=== PATIENT | male | born 1940 | race Caucasian/White ===

== ENCOUNTER 2020-08-24 11:47 | Outpatient (REF) | payer MEDICARE, SELFPAY | END 2020-08-24 11:48 | disposition home or self-care (01) | LOC: HO.LAB 11:47 | PROVIDERS: PCP Internal Medicine Medical Oncology; Visit Provider Internal Medicine | DX: Z20.828 Contact with and (suspected) exposure to other viral communicable diseases (principal) | CPT/HCPCS: 36415; C9803; U0003 ==

== ENCOUNTER 2021-02-14 15:48 | Outpatient (REF) | payer MEDICARE, OTHER, SELFPAY ==
--- NOTE | ~2021-02-14 | XR_ITS ---
EXAMINATION: XR HAND, BILATERAL CLINICAL INFORMATION: Right hand pain COMPARISON: None TECHNIQUE: 3 views of each hand FINDINGS: Right hand: Mild degenerative changes of the interphalangeal joints. No fracture. No periarticular osteopenia, erosions, or suspicious soft tissue calcifications. 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 Mild degenerative changes of the interphalangeal joints. No acute fracture. No periarticular osteopenia, erosions, or suspicious soft tissue calcifications. XR/XR hand RT 2V IMPRESSION: Mild degenerative changes of both hands as described without evidence of an inflammatory arthropathy or acute osseous abnormality.
--- NOTE | ~2021-02-14 | XR_ITS ---
EXAMINATION: XR HAND, BILATERAL CLINICAL INFORMATION: Right hand pain COMPARISON: None TECHNIQUE: 3 views of each hand FINDINGS: Right hand: Mild degenerative changes of the interphalangeal joints. No fracture. No periarticular osteopenia, erosions, or suspicious soft tissue calcifications. 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 Mild degenerative changes of the interphalangeal joints. No acute fracture. No periarticular osteopenia, erosions, or suspicious soft tissue calcifications. XR/XR hand LT 2V IMPRESSION: Mild degenerative changes of both hands as described without evidence of an inflammatory arthropathy or acute osseous abnormality.
== END 2021-02-14 15:49 | disposition home or self-care (01) ==
LOC: HO.XRAY 15:48
PROVIDERS: PCP Internal Medicine Medical Oncology; Visit Provider Nurse Practitioner Family
DX: M79.641 Pain in right hand (principal); M79.642 Pain in left hand
CPT/HCPCS: 73120; 99202

== ENCOUNTER → 2021-03-03 11:50 | Outpatient (BNVA) | payer MEDICARE, SELFPAY | PROVIDERS: PCP Internal Medicine Medical Oncology; Visit Provider Nurse Practitioner Family | DX: M79.641 Pain in right hand (principal); M79.642 Pain in left hand; Z79.899 Other long term (current) drug therapy | CPT/HCPCS: Q3014 ==

== ENCOUNTER 2021-03-07 10:30 | Outpatient (REF) | payer MEDICARE, SELFPAY ==
[2021-03-07 10:54] LABS: MANUAL DIFF FLAG NO
[2021-03-07 10:56] LABS: Basophils Absolute Auto 0.1 X10*3/uL (0.0-0.2); Basophils Percent Auto 0.8 % (0-2); Eosinophils Absolute Auto 0.1 X10*3/uL (0.0-0.4); Eosinophils Percent Auto 1.3 % (0-4); Hematocrit 42.2 % (42-52); Hemoglobin 14.1 g/dl (14.0-18.0); Imm Gran Abs Auto 0.04 X10*3/uL (0.00-0.03); Imm Gran Pct Auto 0.4 % (0.0-0.4); Lymphocytes Absolute Auto 1.8 X10*3/uL (1.2-4.9); Lymphocytes Percent Auto 18.6 % (20-40); Mean Corpuscular HGB Conc 33.4 g/dl (31.0-36.0); Mean Corpuscular Hemoglobin 29.1 pg (27.0-33.0); Mean Platelet Volume 8.7 fL (9.4-12.4); Monocytes Absolute Auto 0.9 X10*3/uL (0.1-1.2); Monocytes Percent Auto 9.4 % (2-11); Neutrophils Absolute Auto 6.9 X10*3/uL (2.0-8.3); Neutrophils Percent Auto 69.5 % (45-73); Platelet Count 420 X10*3/uL (160-400); Red Blood Count 4.85 X10*6/uL (4.60-5.80); Red Cell Distribution Width 11.8 % (11.0-16.0); White Blood Count 9.9 X10*3/uL (4.8-10.8)
[2021-03-07 11:22] LABS: Alanine Aminotransferase 12 U/L (0-40); Albumin Level 3.7 g/dL (3.5-5.0); Alkaline Phosphatase 77 U/L (39-117); Anion Gap 13 (12-20); Aspartate Amino Transferase 16 U/L (5-37); Bilirubin Total 0.8 mg/dL (0.0-1.0); Blood Urea Nitrogen 11 mg/dL (9-16); Calcium 9.1 mg/dL (8.4-10.2); Carbon Dioxide 26 mmol/L (22-29); Chloride 103 mmol/L (96-108); Cholesterol 132 mg/dL; Estimated Glomerular Filt Rate > 60; Glucose Fasting 103 mg/dL (60-99); HDL Cholesterol 38 mg/dL; LDL Cholesterol Calculated 77 mg/dl; Potassium 4.3 mmol/L (3.3-5.1); Sodium 138 mmol/L (135-145); Total Protein 6.7 g/dL (6.5-8.0); Triglycerides 85 mg/dL
[2021-03-07 11:41] LABS: Prostate Specific Antigen < 0.05 ng/mL (<0.05-4.0)
== END 2021-03-07 10:31 | disposition home or self-care (01) ==
LOC: HO.LAB 10:30
PROVIDERS: PCP Internal Medicine Medical Oncology; Visit Provider Internal Medicine Medical Oncology
DX: E78.00 Pure hypercholesterolemia, unspecified (principal); C61 Malignant neoplasm of prostate; E66.3 Overweight
CPT/HCPCS: 36415; 80053; 80061; 84153; 85025

== ENCOUNTER → 2021-03-22 12:44 | Outpatient (BNVA) | payer OTHER, SELFPAY | PROVIDERS: PCP Internal Medicine Medical Oncology; Visit Provider Orthopaedic Surgery | DX: M65.332 Trigger finger, left middle finger (principal); M65.342 Trigger finger, left ring finger; M65.321 Trigger finger, right index finger; M65.341 Trigger finger, right ring finger | CPT/HCPCS: 20550; 99202; J1100 ==

== ENCOUNTER 2021-05-09 15:30 | Outpatient (REF) | payer MEDICARE, SELFPAY ==
--- NOTE | ~2021-05-09 | XR_ITS ---
EXAMINATION: XR SHOULDER, RIGHT XR SHOULDER, LEFT CLINICAL INFORMATION: Bilateral shoulder pain (right worse than left) COMPARISON: None TECHNIQUE: Right shoulder, 4 views Left shoulder, 4 views FINDINGS: Left shoulder: Bones are diffusely osteopenic. Small osteophytes at mildly degenerated acromioclavicular and glenohumeral joints. No fracture or subluxation. There are foci of calcium deposition (likely calcium hydroxyapatite deposition) inferior to the glenoid, region of long triceps attachment. The acromiohumeral distance is normal. There appears to be minimal calcium deposition in the region of the distal supraspinatus tendon. The visualized left upper lung is normal. Right shoulder: Bones have normal alignment. There are osteophytes of the degenerated acromioclavicular joint. Small osteophytes of the glenohumeral joint. The humeral head is well-positioned over the intact glenoid. The glenohumeral joint space is maintained. There are foci of calcium deposition in the region of long triceps attachment at the inferior glenoid and within the distal supraspinatus tendon. The calcium deposition in the region of the distal supraspinatus tendon measures 1.3 cm in length. Question presence of 0.5 cm nodule in the medial right lung apex. Recommend PA and lateral chest radiographic follow-up within the next 3 months to determine whether there is any persistent nodule at the apex. XR/XR shoulder RT min 2V IMPRESSION: * At the right shoulder, there is moderate osteoarthritis of the acromioclavicular joint and mild osteoarthritis of the glenohumeral joint. There are foci of calcium deposition (likely calcium hydroxyapatite deposition) in the region of glenoid attachment of the long triceps tendon and within the region of the distal supraspinatus tendon. * At the left shoulder, there is mild osteoarthritis of the acromioclavicular and glenohumeral joints. The calcium deposition in the left supraspinatus tendon is significantly less at the left shoulder than at the right shoulder.
[2021-05-09 15:48] LABS: MANUAL DIFF FLAG NO
[2021-05-09 15:53] LABS: Basophils Absolute Auto 0.1 X10*3/uL (0.0-0.2); Basophils Percent Auto 0.7 % (0-2); Eosinophils Absolute Auto 0.1 X10*3/uL (0.0-0.4); Eosinophils Percent Auto 0.5 % (0-4); Hemoglobin 13.3 g/dl (14.0-18.0); Imm Gran Abs Auto 0.05 X10*3/uL (0.00-0.03); Imm Gran Pct Auto 0.4 % (0.0-0.4); Lymphocytes Absolute Auto 1.5 X10*3/uL (1.2-4.9); Lymphocytes Percent Auto 11.8 % (20-40); Mean Corpuscular HGB Conc 33.3 g/dl (31.0-36.0); Mean Corpuscular Hemoglobin 28.3 pg (27.0-33.0); Mean Corpuscular Volume 85.1 fL (80-98); Mean Platelet Volume 8.7 fL (9.4-12.4); Monocytes Absolute Auto 1.2 X10*3/uL (0.1-1.2); Neutrophils Absolute Auto 9.4 X10*3/uL (2.0-8.3); Neutrophils Percent Auto 76.6 % (45-73); Platelet Count 455 X10*3/uL (160-400); Red Cell Distribution Width 12.3 % (11.0-16.0); White Blood Count 12.2 X10*3/uL (4.8-10.8)
[2021-05-09 16:18] LABS: Alanine Aminotransferase 14 U/L (0-40); Alkaline Phosphatase 69 U/L (39-117); Anion Gap 14 (12-20); Aspartate Amino Transferase 16 U/L (5-37); Bilirubin Total 0.7 mg/dL (0.0-1.0); Blood Urea Nitrogen 11 mg/dL (9-16); Calcium 9.1 mg/dL (8.4-10.2); Carbon Dioxide 23 mmol/L (22-29); Chloride 102 mmol/L (96-108); Estimated Glomerular Filt Rate > 60; Glucose Random 99 mg/dL (60-115); Potassium 4.7 mmol/L (3.3-5.1); Sodium 134 mmol/L (135-145); Total Protein 6.9 g/dL (6.5-8.0)
[2021-05-09 16:42] LABS: Free T4 (Free Thyroxine) 1.08 ng/dL (0.71-1.85); Prostate Specific Antigen < 0.05 ng/mL (<0.05-4.0); Thyroid Stimulating Hormone 1.88 uIU/mL (0.32-4.0)
[2021-05-09 16:43] LABS: Erythrocyte Sedimentation Rate 26 MM/HR (0-15)
[2021-05-11 08:47] LABS: Lyme Abs Screen <0.90 index
== END 2021-05-09 15:31 | disposition home or self-care (01) ==
LOC: HO.XRAY 15:30
PROVIDERS: PCP Internal Medicine Medical Oncology; Visit Provider Internal Medicine Medical Oncology
DX: Z12.5 Encounter for screening for malignant neoplasm of prostate (principal); M25.511 Pain in right shoulder; M25.512 Pain in left shoulder; E78.00 Pure hypercholesterolemia, unspecified; E66.3 Overweight; C61 Malignant neoplasm of prostate
CPT/HCPCS: 36415; 73030; 80053; 84153; 84439; 84443; 85025; 85652; 86617; 86618

== ENCOUNTER 2021-09-27 12:11 | Outpatient (REF) | payer MEDICARE, SELFPAY ==
[2021-09-27 12:48] LABS: MANUAL DIFF FLAG NO
[2021-09-27 12:59] LABS: Basophils Absolute Auto 0.1 X10*3/uL (0.0-0.2); Basophils Percent Auto 0.9 % (0-2); Eosinophils Absolute Auto 0.1 X10*3/uL (0.0-0.4); Eosinophils Percent Auto 1.6 % (0-4); Hematocrit 44.4 % (42.0-52.0); Hemoglobin 14.8 g/dl (14.0-18.0); Imm Gran Abs Auto 0.02 X10*3/uL (0.00-0.03); Imm Gran Pct Auto 0.3 % (0.0-0.4); Lymphocytes Absolute Auto 1.8 X10*3/uL (1.2-4.9); Lymphocytes Percent Auto 22.9 % (20-40); Mean Corpuscular HGB Conc 33.3 g/dl (31.0-36.0); Mean Corpuscular Hemoglobin 28.7 pg (27.0-33.0); Mean Corpuscular Volume 86.2 fL (80.0-98.0); Mean Platelet Volume 8.9 fL (9.4-12.4); Monocytes Absolute Auto 0.8 X10*3/uL (0.1-1.2); Monocytes Percent Auto 10.6 % (2-11); Neutrophils Absolute Auto 4.9 x10*3/uL (2.0-8.3); Neutrophils Percent Auto 63.7 % (45-73); Platelet Count 351 X10*3/uL (160-400); Red Blood Count 5.15 X10*6/uL (4.60-5.80); Red Cell Distribution Width 12.8 % (11.0-16.0); White Blood Count 7.7 X10*3/uL (4.8-10.8)
[2021-09-27 14:13] LABS: Alanine Aminotransferase 11 U/L (0-40); Alkaline Phosphatase 77 U/L (39-117); Anion Gap 10 (12-20); Aspartate Amino Transferase 17 U/L (5-37); Bilirubin Total 1.1 mg/dL (0.0-1.0); Carbon Dioxide 29 mmol/L (22-29); Chloride 104 mmol/L (96-108); Cholesterol 183 mg/dL; Estimated Glomerular Filt Rate > 60; Glucose Random 102 mg/dL (60-115); HDL Cholesterol 36 mg/dL; LDL Cholesterol Calculated 131 mg/dl; Potassium 4.6 mmol/L (3.3-5.1); Sodium 138 mmol/L (135-145); Total Protein 6.7 g/dL (6.5-8.0); Triglycerides 83 mg/dL
[2021-09-27 14:18] LABS: Prostate Specific Antigen < 0.05 ng/mL (<0.05-4.0); Vitamin D 25-OH Total 19.1 ng/mL (>30)
[2021-09-27 15:14] LABS: Blood Urea Nitrogen 17 mg/dL (9-16); Calcium 9.6 mg/dL (8.4-10.2)
== END 2021-09-27 12:12 | disposition home or self-care (01) ==
LOC: HO.LAB 12:11
PROVIDERS: PCP Internal Medicine Medical Oncology; Visit Provider Internal Medicine Medical Oncology
DX: Z12.5 Encounter for screening for malignant neoplasm of prostate (principal); I10 Essential (primary) hypertension; E78.00 Pure hypercholesterolemia, unspecified; K21.9 Gastro-esophageal reflux disease without esophagitis; C61 Malignant neoplasm of prostate
CPT/HCPCS: 36415; 80053; 80061; 82306; 84153; 85025

== ENCOUNTER → 2021-10-18 13:08 | Outpatient (REF) | payer MEDICARE, SELFPAY ==
--- NOTE | 2021-10-18 13:12 | ECG_ITS ---
Hook-up date: 2021-10-18 13:25:00 Duration: 25:21:00 Test Indications: HTN, PALPITATIONS Medications: 445136 QRS complexes 216 Ventricular ectopics which represent <1 % of total QRS comp. 313 Supraventricular ectopics which represent <1 % of total QRS comp. * Paced QRS complexs which represent % of total QRS comp. VENTRICULAR ECTOPY 216 Isolated 0 Bigeminal Cycles 0 Couplets 0 Runs 0 Beats in Runs * Beats LONGEST at * BPM at :: -- * Beats FASTEST at * BPM at :: -- SUPRAVENTRICULAR ECTOPY 209 Isolated 18 Couplets 12 Runs 68 Beats in Runs 10 Beats LONGEST at 117 BPM at 06:54:01 2021-10-19 5 Beats FASTEST at 140 BPM at 02:48:56 2021-10-19 HEART RATES 53 MIN at 05:59:37 2021-10-19 83 AVG 130 MAX at 13:29:52 2021-10-18 LONGEST RR 1.1280 secs at 05:59:36 2021-10-19 S-T LEVELS Channel 1 - 128 mm at 13:25:00 2021-10-18 - 128 mm at 13:25:00 2021-10-18 Channel 2 - 128 mm at 13:25:00 2021-10-18 - 128 mm at 13:25:00 2021-10-18 Channel 3 - 128 mm at 03:24:41 -- - 128 mm at 03:24:41 Basic rhythm Normal sinus rhythm No long pause or profound bradycardia Rare Premature ventricular complexes / Premature atrial complexes Short runs of SVEs s/o PAT Patient did not report any symptoms in the diary Referred By: Shashi Bennett Overread By: IMMANUEL MANE MD
== END ==
LOC: HO.CARD 13:08
PROVIDERS: Visit Provider Internal Medicine Medical Oncology
DX: R00.2 Palpitations (principal); I10 Essential (primary) hypertension
CPT/HCPCS: 93226

== ENCOUNTER 2022-01-17 12:53 | Outpatient (REF) | payer MEDICARE, SELFPAY ==
[2022-01-17 13:24] LABS: MANUAL DIFF FLAG NO
[2022-01-17 14:01] LABS: Basophils Absolute Auto 0.1 X10*3/uL (0.0-0.2); Basophils Percent Auto 1.1 % (0-2); Eosinophils Absolute Auto 0.1 X10*3/uL (0.0-0.4); Eosinophils Percent Auto 2.2 % (0-4); Hematocrit 43.9 % (42.0-52.0); Hemoglobin 14.8 g/dl (14.0-18.0); Imm Gran Abs Auto 0.02 X10*3/uL (0.00-0.03); Imm Gran Pct Auto 0.4 % (0.0-0.4); Lymphocytes Absolute Auto 1.8 X10*3/uL (1.2-4.9); Lymphocytes Percent Auto 32.2 % (20-40); Mean Corpuscular HGB Conc 33.7 g/dl (31.0-36.0); Mean Corpuscular Hemoglobin 29.7 pg (27.0-33.0); Mean Corpuscular Volume 88.2 fL (80.0-98.0); Mean Platelet Volume 8.9 fL (9.4-12.4); Monocytes Absolute Auto 0.6 X10*3/uL (0.1-1.2); Neutrophils Absolute Auto 2.9 x10*3/uL (2.0-8.3); Neutrophils Percent Auto 53.1 % (45-73); Platelet Count 270 X10*3/uL (160-400); Red Blood Count 4.98 X10*6/uL (4.60-5.80); Red Cell Distribution Width 12.9 % (11.0-16.0); White Blood Count 5.5 X10*3/uL (4.8-10.8)
[2022-01-17 15:04] LABS: Alanine Aminotransferase 14 U/L (0-40); Albumin Level 3.9 g/dL (3.5-5.0); Alkaline Phosphatase 66 U/L (39-117); Anion Gap 11 (12-20); Aspartate Amino Transferase 20 U/L (5-37); Bilirubin Total 0.9 mg/dL (0.0-1.0); Blood Urea Nitrogen 11 mg/dL (9-16); Calcium 9.2 mg/dL (8.4-10.2); Carbon Dioxide 27 mmol/L (22-29); Chloride 105 mmol/L (96-108); Cholesterol 170 mg/dL; Estimated Glomerular Filt Rate > 60; Glucose Fasting 101 mg/dL (60-99); HDL Cholesterol 46 mg/dL; LDL Cholesterol Calculated 114 mg/dl; Potassium 4.6 mmol/L (3.3-5.1); Sodium 138 mmol/L (135-145); Total Protein 6.5 g/dL (6.5-8.0); Triglycerides 53 mg/dL
[2022-01-17 15:06] LABS: Prostate Specific Antigen < 0.05 ng/mL (<0.05-4.0); Vitamin D 25-OH Total 23.8 ng/mL (>30)
== END 2022-01-17 12:54 | disposition home or self-care (01) ==
LOC: HO.LAB 12:53
PROVIDERS: PCP Internal Medicine Medical Oncology; Visit Provider Internal Medicine Medical Oncology
DX: E66.3 Overweight (principal); E78.00 Pure hypercholesterolemia, unspecified; C61 Malignant neoplasm of prostate
CPT/HCPCS: 36415; 80053; 80061; 82306; 84153; 85025

== ENCOUNTER 2022-06-05 12:53 | Outpatient (REF) | payer MEDICARE, SELFPAY ==
[2022-06-05 13:05] LABS: MANUAL DIFF FLAG NO
[2022-06-05 13:16] LABS: Basophils Absolute Auto 0.1 X10*3/uL (0.0-0.2); Eosinophils Absolute Auto 0.1 X10*3/uL (0.0-0.4); Eosinophils Percent Auto 2.1 % (0-4); Hematocrit 43.3 % (42.0-52.0); Imm Gran Abs Auto 0.01 X10*3/uL (0.00-0.03); Imm Gran Pct Auto 0.2 % (0.0-0.4); Lymphocytes Percent Auto 31.6 % (20-40); Mean Corpuscular HGB Conc 34.6 g/dl (31.0-36.0); Mean Corpuscular Hemoglobin 30.2 pg (27.0-33.0); Mean Corpuscular Volume 87.3 fL (80.0-98.0); Mean Platelet Volume 8.7 fL (9.4-12.4); Monocytes Absolute Auto 0.6 X10*3/uL (0.1-1.2); Monocytes Percent Auto 9.5 % (2-11); Neutrophils Absolute Auto 3.5 x10*3/uL (2.0-8.3); Neutrophils Percent Auto 55.6 % (45-73); Platelet Count 268 X10*3/uL (160-400); Red Blood Count 4.96 X10*6/uL (4.60-5.80); Red Cell Distribution Width 12.1 % (11.0-16.0); White Blood Count 6.3 X10*3/uL (4.8-10.8)
[2022-06-05 14:10] LABS: Alanine Aminotransferase 13 U/L (0-40); Albumin Level 4.1 g/dL (3.5-5.0); Alkaline Phosphatase 72 U/L (39-117); Anion Gap 14 (12-20); Aspartate Amino Transferase 22 U/L (5-37); Bilirubin Total 1.1 mg/dL (0.0-1.0); Blood Urea Nitrogen 13 mg/dL (9-16); Calcium 8.8 mg/dL (8.4-10.2); Carbon Dioxide 26 mmol/L (22-29); Chloride 103 mmol/L (96-108); Cholesterol 176 mg/dL; Estimated Glomerular Filt Rate > 60; Glucose Fasting 103 mg/dL (60-99); HDL Cholesterol 50 mg/dL; LDL Cholesterol Calculated 113 mg/dl; Potassium 4.4 mmol/L (3.3-5.1); Sodium 139 mmol/L (135-145); Total Protein 6.7 g/dL (6.5-8.0); Triglycerides 69 mg/dL
[2022-06-05 14:33] LABS: Prostate Specific Antigen < 0.05 ng/mL (<0.05-4.0)
== END 2022-06-05 12:54 | disposition home or self-care (01) ==
LOC: HO.LAB 12:53
PROVIDERS: PCP Internal Medicine Medical Oncology; Visit Provider Internal Medicine Medical Oncology
DX: Z12.5 Encounter for screening for malignant neoplasm of prostate (principal); C61 Malignant neoplasm of prostate; I10 Essential (primary) hypertension
CPT/HCPCS: 36415; 80053; 80061; 84153; 85025

== ENCOUNTER 2022-12-05 11:10 | Outpatient (REF) | payer MEDICARE, SELFPAY ==
[2022-12-05 11:25] LABS: MANUAL DIFF FLAG NO
[2022-12-05 11:42] LABS: Basophils Absolute Auto 0.1 X10*3/uL (0.0-0.2); Basophils Percent Auto 1.1 % (0-2); Eosinophils Absolute Auto 0.2 X10*3/uL (0.0-0.4); Eosinophils Percent Auto 2.7 % (0-4); Hematocrit 43.3 % (42.0-52.0); Hemoglobin 14.4 g/dl (14.0-18.0); Imm Gran Abs Auto 0.01 X10*3/uL (0.00-0.03); Imm Gran Pct Auto 0.2 % (0.0-0.4); Lymphocytes Absolute Auto 2.1 X10*3/uL (1.2-4.9); Mean Corpuscular HGB Conc 33.3 g/dl (31.0-36.0); Mean Corpuscular Hemoglobin 29.7 pg (27.0-33.0); Mean Corpuscular Volume 89.3 fL (80.0-98.0); Monocytes Absolute Auto 0.6 X10*3/uL (0.1-1.2); Monocytes Percent Auto 10.5 % (2-11); Neutrophils Absolute Auto 2.6 x10*3/uL (2.0-8.3); Neutrophils Percent Auto 47.5 % (45-73); Platelet Count 271 X10*3/uL (160-400); Red Blood Count 4.85 X10*6/uL (4.60-5.80); Red Cell Distribution Width 12.4 % (11.0-16.0); White Blood Count 5.5 X10*3/uL (4.8-10.8)
[2022-12-05 12:35] LABS: Alanine Aminotransferase 14 U/L (0-40); Albumin Level 3.8 g/dL (3.5-5.0); Alkaline Phosphatase 68 U/L (39-117); Anion Gap 13 (12-20); Aspartate Amino Transferase 24 U/L (5-37); Bilirubin Total 1.2 mg/dL (0.0-1.0); Blood Urea Nitrogen 13 mg/dL (9-16); Calcium 8.5 mg/dL (8.4-10.2); Carbon Dioxide 22 mmol/L (22-29); Chloride 108 mmol/L (96-108); Cholesterol 169 mg/dL; Estimated Glomerular Filt Rate > 60; Glucose Fasting 90 mg/dL (60-99); HDL Cholesterol 44 mg/dL; LDL Cholesterol Calculated 113 mg/dl; Potassium 4.3 mmol/L (3.3-5.1); Sodium 139 mmol/L (135-145); Total Protein 6.1 g/dL (6.5-8.0); Triglycerides 60 mg/dL
[2022-12-05 12:40] LABS: Vitamin D 25-OH Total 29.4 ng/mL (>30)
== END 2022-12-05 11:11 | disposition home or self-care (01) ==
LOC: HO.LAB 11:10
PROVIDERS: PCP Internal Medicine Medical Oncology; Visit Provider Internal Medicine Medical Oncology
DX: C61 Malignant neoplasm of prostate (principal); E78.00 Pure hypercholesterolemia, unspecified; E55.9 Vitamin D deficiency, unspecified; E53.8 Deficiency of other specified B group vitamins
CPT/HCPCS: 36415; 80053; 80061; 82306; 85025

== ENCOUNTER 2023-05-14 12:20 | Outpatient (REF) | payer MEDICARE, SELFPAY ==
[2023-05-14 12:44] LABS: MANUAL DIFF FLAG NO
[2023-05-14 13:20] LABS: Basophils Absolute Auto 0.1 X10*3/uL (0.0-0.2); Basophils Percent Auto 1.3 % (0-2); Eosinophils Absolute Auto 0.1 X10*3/uL (0.0-0.4); Eosinophils Percent Auto 2.1 % (0-4); Hematocrit 43.1 % (42.0-52.0); Hemoglobin 14.6 g/dl (14.0-18.0); Imm Gran Abs Auto 0.02 X10*3/uL (0.00-0.03); Imm Gran Pct Auto 0.3 % (0.0-0.4); Lymphocytes Absolute Auto 1.9 X10*3/uL (1.2-4.9); Mean Corpuscular HGB Conc 33.9 g/dl (31.0-36.0); Mean Corpuscular Hemoglobin 30.2 pg (27.0-33.0); Mean Platelet Volume 9.2 fL (9.4-12.4); Monocytes Absolute Auto 0.7 X10*3/uL (0.1-1.2); Neutrophils Absolute Auto 3.5 x10*3/uL (2.0-8.3); Neutrophils Percent Auto 55.3 % (45-73); Platelet Count 286 X10*3/uL (160-400); Red Blood Count 4.84 X10*6/uL (4.60-5.80); Red Cell Distribution Width 12.4 % (11.0-16.0); White Blood Count 6.3 X10*3/uL (4.8-10.8)
[2023-05-14 14:48] LABS: Alanine Aminotransferase 14 U/L (0-40); Albumin Level 3.9 g/dL (3.5-5.0); Alkaline Phosphatase 64 U/L (39-117); Anion Gap 10 (12-20); Aspartate Amino Transferase 23 U/L (5-37); Bilirubin Total 0.8 mg/dL (0.0-1.0); Blood Urea Nitrogen 9 mg/dL (9-16); Calcium 8.8 mg/dL (8.4-10.2); Carbon Dioxide 27 mmol/L (22-29); Chloride 106 mmol/L (96-108); Cholesterol 149 mg/dL (<200); Estimated Glomerular Filt Rate > 60; Glucose Fasting 96 mg/dL (60-99); HDL Cholesterol 45 mg/dL (>40); LDL Cholesterol Calculated 94 mg/dL (<100); Potassium 4.2 mmol/L (3.3-5.1); Sodium 139 mmol/L (135-145); Total Protein 6.5 g/dL (6.5-8.0); Triglycerides 50 mg/dL (<150)
[2023-05-14 15:00] LABS: Prostate Specific Antigen < 0.10 ng/mL (<0.05-4.0)
== END 2023-05-14 12:21 | disposition home or self-care (01) ==
LOC: HO.LAB 12:20
PROVIDERS: PCP Internal Medicine Medical Oncology; Visit Provider Internal Medicine Medical Oncology
DX: Z12.5 Encounter for screening for malignant neoplasm of prostate (principal); E78.00 Pure hypercholesterolemia, unspecified; N52.9 Male erectile dysfunction, unspecified; I10 Essential (primary) hypertension; C61 Malignant neoplasm of prostate; E55.9 Vitamin D deficiency, unspecified
CPT/HCPCS: 36415; 80053; 80061; 82306; 84153; 85025

== ENCOUNTER 2023-08-20 12:45 | Outpatient (REF) | payer MEDICARE, SELFPAY ==
[2023-08-20 13:10] LABS: MANUAL DIFF FLAG NO
[2023-08-20 13:55] LABS: Basophils Absolute Auto 0.1 X10*3/uL (0.0-0.2); Basophils Percent Auto 0.8 % (0-2); Eosinophils Absolute Auto 0.1 X10*3/uL (0.0-0.4); Eosinophils Percent Auto 1.6 % (0-4); Hemoglobin 14.9 g/dl (14.0-18.0); Imm Gran Abs Auto 0.02 X10*3/uL (0.00-0.03); Imm Gran Pct Auto 0.3 % (0.0-0.4); Lymphocytes Absolute Auto 1.7 X10*3/uL (1.2-4.9); Lymphocytes Percent Auto 27.6 % (20-40); Mean Corpuscular HGB Conc 33.9 g/dl (31.0-36.0); Mean Corpuscular Volume 88.5 fL (80.0-98.0); Mean Platelet Volume 9.4 fL (9.4-12.4); Monocytes Absolute Auto 0.7 X10*3/uL (0.1-1.2); Neutrophils Absolute Auto 3.6 x10*3/uL (2.0-8.3); Neutrophils Percent Auto 58.7 % (45-73); Platelet Count 280 X10*3/uL (160-400); Red Blood Count 4.97 X10*6/uL (4.60-5.80); Red Cell Distribution Width 12.8 % (11.0-16.0); White Blood Count 6.1 X10*3/uL (4.8-10.8)
[2023-08-20 14:25] LABS: Alanine Aminotransferase 15 U/L (0-40); Alkaline Phosphatase 55 U/L (39-117); Anion Gap 13 (12-20); Aspartate Amino Transferase 27 U/L (5-37); Bilirubin Total 0.9 mg/dL (0.0-1.0); Blood Urea Nitrogen 16 mg/dL (9-16); Calcium 8.6 mg/dL (8.4-10.2); Carbon Dioxide 26 mmol/L (22-29); Chloride 106 mmol/L (96-108); Cholesterol 171 mg/dL (<200); Estimated Glomerular Filt Rate > 60; Glucose Fasting 100 mg/dL (60-99); HDL Cholesterol 52 mg/dL (>40); LDL Cholesterol Calculated 107 mg/dL (<100); Potassium 4.4 mmol/L (3.3-5.1); Sodium 141 mmol/L (135-145); Total Protein 6.9 g/dL (6.5-8.0); Triglycerides 64 mg/dL (<150)
== END 2023-08-20 12:46 | disposition home or self-care (01) ==
LOC: HO.LAB 12:45
PROVIDERS: PCP Internal Medicine Medical Oncology; Visit Provider Internal Medicine Medical Oncology
DX: E78.00 Pure hypercholesterolemia, unspecified (principal); I10 Essential (primary) hypertension
CPT/HCPCS: 36415; 80053; 80061; 85025

== ENCOUNTER 2024-06-02 10:55 | Outpatient (REF) | payer MEDICARE, SELFPAY ==
[2024-06-02 11:18] LABS: MANUAL DIFF FLAG NO
[2024-06-02 11:34] LABS: Basophils Absolute Auto 0.1 X10*3/uL (0.0-0.2); Basophils Percent Auto 1.3 % (0-2); Eosinophils Absolute Auto 0.2 X10*3/uL (0.0-0.4); Eosinophils Percent Auto 3.9 % (0-4); Hematocrit 42.8 % (42.0-52.0); Hemoglobin 14.6 g/dl (14.0-18.0); Imm Gran Abs Auto 0.02 X10*3/uL (0.00-0.03); Imm Gran Pct Auto 0.3 % (0.0-0.4); Lymphocytes Absolute Auto 1.8 X10*3/uL (1.2-4.9); Lymphocytes Percent Auto 29.8 % (20-40); Mean Corpuscular HGB Conc 34.1 g/dl (31.0-36.0); Mean Corpuscular Hemoglobin 30.4 pg (27.0-33.0); Mean Corpuscular Volume 89.2 fL (80.0-98.0); Mean Platelet Volume 8.7 fL (9.4-12.4); Monocytes Absolute Auto 0.6 X10*3/uL (0.1-1.2); Monocytes Percent Auto 9.9 % (2-11); Neutrophils Absolute Auto 3.3 x10*3/uL (2.0-8.3); Neutrophils Percent Auto 54.8 % (45-73); Platelet Count 291 X10*3/uL (160-400); Red Cell Distribution Width 12.3 % (11.0-16.0)
[2024-06-02 12:19] LABS: Alanine Aminotransferase 15 U/L (0-40); Alkaline Phosphatase 57 U/L (39-117); Anion Gap 8 (12-20); Aspartate Amino Transferase 22 U/L (5-37); Bilirubin Total 0.9 mg/dL (0.0-1.0); Blood Urea Nitrogen 13 mg/dL (9-16); Calcium 8.8 mg/dL (8.4-10.2); Carbon Dioxide 28 mmol/L (22-29); Chloride 107 mmol/L (96-108); Cholesterol 177 mg/dL (<200); Estimated Glomerular Filt Rate > 60; Glucose Fasting 98 mg/dL (60-99); HDL Cholesterol 49 mg/dL (>40); LDL Cholesterol Calculated 115 mg/dL (<100); Potassium 3.9 mmol/L (3.3-5.1); Sodium 139 mmol/L (135-145); Total Protein 6.6 g/dL (6.5-8.0); Triglycerides 68 mg/dL (<150)
[2024-06-02 12:41] LABS: Prostate Specific Antigen < 0.10 ng/mL (<0.05-4.0)
== END 2024-06-02 10:56 | disposition home or self-care (01) ==
LOC: HO.LAB 10:55
PROVIDERS: PCP Internal Medicine Medical Oncology; Visit Provider Internal Medicine Medical Oncology
DX: E78.00 Pure hypercholesterolemia, unspecified (principal); I10 Essential (primary) hypertension; C61 Malignant neoplasm of prostate; Z12.5 Encounter for screening for malignant neoplasm of prostate
CPT/HCPCS: 36415; 80053; 80061; 84153; 85025

== ENCOUNTER 2024-10-07 11:00 | Outpatient (REF) | payer MEDICARE, SELFPAY ==
[2024-10-07 11:24] LABS: MANUAL DIFF FLAG NO
--- OUTSIDE RECORDS SUMMARY | 2024-10-07 11:49 | XMS_ITS ---
Author Organization Shashi Bennett III, MD Address [address] [place] [address] Care Team Providers Care Banquet Coordinator Name Role Phone Shashi Bennett Primary Care Provider [phone] Allergies Allergen (clinical drug ingredient) Drug/Non Drug Allergy documented on EMR Reaction Allergy Type Onset Date Status lisinopril Lisinopril Unknown Drug Allergy Activ e ibuprofen Ibuprofen Unknown Drug Allergy Active REASON FOR VISIT Acute pharyngitis, Sore throat, Viral syndrome Medications Medication SIG (Take, Route, Frequency, Duration) Notes Start Date End Date Status Niacin 500 MG 1 tablet with food Orally Once a day Active amLODIPine Besylate 2.5 MG 1 tablet Oral ly Twice a day Active Omeprazole 20 MG 1 capsule Orally as needed Active Aspirin Adult Low Dose 81 MG 1 tablet Orally Once a day Active hydroCHLOROthiazide 12.5 MG 1 capsule in the morning Orally Every other day [facility]/20[facility]23 Active Social History Tobacco Use: Social History Observation Description Date Details (start date - stop date) Former Smoker NA - NA Sex Assigned At : Social History Observation Description Sex Assigned At Male Tobacco Use/Smoking Question Answer Notes Patient is a former smoker How long has it been since you last smoked? > 10 years Additional Findings: Tobacco Non-User Ex-cigaret te smoker Vital Signs Height 71 in 03/18/2024 Weight 179 lbs 03/18/2024 BMI 24.96 kg/m2 03/18/2024 Encounters Encounter Location Date Provider Diagnosis Shashi Bennett III, MD [address] [place] [address] [place] [address] 03/18/2024 Shashi Bennett Pure hypercholestero lemia E78.00 ; Essential hypertension I10 ; Prostate cancer C61 and Acute pharyngitis, unspecified etiology J02.9 Assessments Encounter Date Diagnosis (ICD Code) Assessment Notes T reatment Notes Treatment Clinical Notes 03/18/2024 Pure hypercholestero lemia (ICD-10 - E78.00) Comprehensive blood work has been ordered to be done in the near future. No change in his medications was made today. 03/18/2024 Essential hypertensi on (ICD-10 - I10) He has a follow-up visit arranged to come to the office to check his blood pressure. 03/18/2024 Prostate cancer (ICD -10 - C61) Blood work with a PSA will be done under future. 03/18/2024 Acute pharyngitis, unspecified etiology (ICD-10 - J02.9) This has resolved and he has completed the antibiotic. He is now able to swallow without impairment. Plan Of Treatment Medication Medication Name Sig Start Date Stop Date Notes Niacin 500 MG 1 tablet with food Orally Once a day amLODIPine Besylate 2.5 MG 1 tablet Oral ly Twice a day Omeprazole 20 MG 1 capsule Orally as needed Aspirin Adult Low Dose 81 MG 1 tablet Or ally Once a day hydroCHLOROthiazide 12.5 MG 1 capsule in the morning Orally Every other day 05/20/2023 Prescribed by [facility] Pending Test Test Name Order Date PROFILE, FASTING (COMPREHENSIVE METABOLI C) 03/18/2024 PSA, TOTAL 03/18/2024 CBC w DIFF 03/18/2024 Lipid Panel 03/18/2024 Next Appt Details Follow Up: 2 Months, Reason: Office visit Provider Name:Shashi Bennett, 10/12/2024 02:30:00 PM, [address] [place] [address] [address], [place], [address], Provider Name:Shashi Bennett, 06/14/2025 02:30:00 PM, [address] [place] [address] [address], [place], [id number], Progress Notes * Farhat ANDERSON ADOB: [birth year] (83 yo M)Acc No.[id number]:03/18/2024 Patient:?Farhat Anderson Provider:?Shashi Bennett MD :1940???Age:83 Y???Sex:Male Victoriano e:03/18/2024 Address:[address] [place] [address], [address], [phone] Subjective: * Chief Complaints: * ???Acute pharyngitisSore thr oatViral syndrome * HPI: ???:? This telehealth visit took place over 15 minutes with the patient at home and me in my office. He gave consent for billing. On his last visit he complained of a throat is so sore he could not swallow. He had other viral symptoms. He was treated with an antibiotic or possible strep. He now has a lingering cough productive of white phlegm but no fever. The sore throat has resolved he feels weak but is able to eat and drink and has no nausea vomiting or diarrhea. ?Telehealth?Location of provider rendering services:?{...} [address] [place] [address] ?Location of patient:?address listed in demographics for today's visit ?Patient identification confirmed using:?Name, ?Telehealth method:?Telephone only. Patient not visible to care provider. ?Consent:?Patient verbally consented to treatment, Patient verbally consented to billing insurance company, Patient informed of any privacy concerns related to method of visit ?Total time spent with patient (mins)?15 * ROS:?General/Constitutional:?pain?only normal aches and pains.?Chills?denies.?Fatigue?admits.?Fever?denies.?ENT:?Decreased hearing?mild.?Respiratory:?Cough?denies.?Cardiovascular:?Chest pain with exertion?denies.?Dyspnea on exertion?denies.?Shortness of breath?denies.?Gastrointestinal:?Constipation?occasional.?Decreased appetite?that is not associated with weight loss.?Diarrhea?denies.?Heartburn?denies.?Nausea?denies.?Rectal bleeding?denies.?Vomiting?denies.?Hematology:?bruising?denies.?petechiae?denies.?Swollen glands?none have been noted.?Genitourinary:?Frequent urination?once a night.?Musculoskeletal:?Muscle aches?denies.?Painful joints?denies.?Sciatica?denies.?Weakness?denies.?Skin:?Itching?denies.?Rash?denies.?Skin lesion(s)?denies.?Neurologic:?Difficulty speaking?denies.?Dizziness?denies.?Headache?denies.?Low back pain?denies.?Psychiatric:?Depressed mood?denies.? * Medical History:? * Surgical History:?right ingu inal hernia repair late stonsils and agnoids removed radical prostatectomy for carcinoma the prostate 2007colonoscopy Dr. Shashi Bird 2014basel carcinoma removed top of head 06/2017 * Hospitalization/Major Diagno stic Procedure:?Denies Past Hospitalization * Family History:?Father: dece ased 50 yrs, Myocardial infarction, SOFTB[employer] UMPIRE hemorrhage.?Mother: 86 yrs, Hypertension, breast cancer.?1 brother(s) . 2 daughter(s) - healthy. .? His brother of carcinoma the liver. He has 2 daughters Urszula and Jenn and 7 healthy grandchildren. He has 1 brief exposure to asbestos. He has begen with Deepthi for 40 years. He is not aware of any family history of substance use disorder or mental illness. * Social History:?Tobacco Use:?Tobacco Use/Smoking?Patient is a?former smoker ?How long has it been since you last smoked??> 10 years ?Additional Findings: Tobacco Non-User?Ex-cigarette smoker * Medications:?TakingAspirin A dult Low Dose 81 MG Tablet Delayed Release 1 tablet Orally Once a dayOmeprazole 20 MG Capsule Delayed Release 1 capsule Orally as neededamLODIPine Besylate 2.5 MG Tablet 1 tablet Orally Twice a dayNiacin 500 MG Tablet 1 tablet with food Orally Once a dayhydroCHLOROthiazide 12.5 MG Capsule 1 capsule in the morning Orally Every other day, Notes: Prescribed by [facility] List reviewed and reconciled with the patientTaking Aspirin Adult Low Dose 81 MG Tablet Delayed Release 1 tablet Orally Once a dayTaking Omeprazole 20 MG Capsule Delayed Release 1 capsule Orally as neededTaking amLODIPine Besylate 2.5 MG Tablet 1 tablet Orally Twice a dayTaking Niacin 500 MG Tablet 1 tablet with food Orally Once a dayTaking hydroCHLOROthiazide 12.5 MG Capsule 1 capsule in the morning Orally Every other day, Notes: Prescribed by [facility] reviewed and reconciled with the patient * Allergies:?IbuprofenLisinopr ilno[Allergies Verified] Objective: * Vitals:?Ht: 71, Wt:179, BMI: 24.96, Ht-cm: 180.34, Wt-k.19. Assessment: * Assessment: 1.?Essential hypertension - I10, He has a follow-up visit arranged to come to the office to check his blood pressure.?2.?Pure hypercholesterolemia - E78.00, Comprehensive blood work has been ordered to be done in the near future. No change in his medications was made today.?3.?Prostate cancer - C61, Blood work with a PSA will be done under future.?4.?Acute pharyngitis, unspecified etiology - J02.9, This has resolved and he has completed the antibiotic. He is now able to swallow without impairment.? Plan: * Treatment: 2.?Pure hypercholesterolemia ? Continue Aspirin Adult Low Dose Tablet Delayed Release, 81 MG, 1 tablet, Orally, Once a day;?Continue Omeprazole Capsule Delayed Release, 20 MG, 1 capsule, Orally, as needed;?Continue amLODIPine Besylate Tablet, 2.5 MG, 1 tablet, Orally, Twice a day;?Continue Niacin Tablet, 500 MG, 1 tablet with food, Orally, Once a day.?LAB: PROFILE, FASTING (COMPREHENSIVE METABOLIC) ?LAB: PSA, TOTAL ?LAB: CBC w DIFF ?LAB: Lipid Panel 3.?Prostate cancer?LAB: PROFILE, FASTING (COMPREHENSIVE METABOLIC) ?LAB: PSA, TOTAL ?LAB: CBC w DIFF ?LAB: Lipid Panel 4.?Others? Continue hydroCHLOROthiazide Capsule, 12.5 MG, 1 capsule in the morning, Orally, Every other day, Notes: [facility]?? * Procedure Codes:?91264 PHONE E/M BY PHYS 11-20 MIN * Preventive Medicine:? ??Counseling:?Smoking/Tobacco Use?Patient counseled on the dangers of tobacco use and urged to quit.?03/18/2024 * Follow Up:?2 Months (Reason: Office visit) * Images: * Sign off status: Completed true * Provider:?Shashi Bennett MD Date:?02/18 Generated for Dorys watts/Laura/eTgena on:?10/07/2024 11:49 AM EST History and Physical Notes * HPI (History of Present Illness) Category Sub-Category Detail Notes Telehealth Location of [facility]:: {...} [address] [facility] [address] Location of patient:: address listed in demographics for today's visit Patient identification confirmed using:: Name, Telehealth method:: Telephone only. Bea ent not visible to care provider. Consent:: Patient verbally c onsented to treatment, Patient verbally consented to billing insurance company, Patient informed of any privacy concerns related to method of visit Total time spent with patient (mins): 15
--- OUTSIDE RECORDS SUMMARY | 2024-10-07 11:49 | XMS_ITS ---
Author Name [facility] Organization [facility] Address [address] [place] [id number] Care Team Providers Care Chocolate Coater Name Role Phone HALEY CONRAD Primary Care Provider Unavailabl e Insurance Providers: All historical and current Section Date Range: From patient's date of to the date document was created. This section includes the names of all active insurance providers for the patient. Insurance Provider Type of Coverage Plan Name Start of Policy Coverage End of Policy Coverage Group Number Member ID Insurance Provider's Telephone Number Policy Cobian's Name Patient's Relationship to Policy Cobian [facility] ([facility]) MEDICARE ADVANTAGE MCR ([facility]) Aug 19, 2017 [id number] LISSET ANDERSON PATIENT [facility] ([facility]) MEDICARE ADVANTAGE MCR ([facility]) Aug 19, 2014 [id number] LISSET ANDERSON PATIENT MEDICARE ([facility]) MEDICARE (M) PART A Aug 19, 2006 PART A [id number] LISSET ANDERSON PATIENT MEDICARE ([facility]) MEDICARE (M) PART B Aug 19, 2006 PART B [id number] JUSTIN,EDW SABIHA PATIENT Selected Encounter This section includes the information on record at ID for the Encounter. Date/Time Encounter Type Encounter Description Reason Provider Source December 24, 2023 02:00 PM OFFICE O/P EST HI 40 MIN PRIMARY CARE/MEDICINE ICD-10-CM C61 Malignant neoplasm of prostate HALEY CONRAD [place] Encounter Template Text not used by ID Assessments - Encounter Diagnoses This section includes the primary and secondary diagnoses documented for the Encounter. Date/Time Primary/Secondary Diagnosis Diagnosis Name Provider Source December 25, 2023 07:54 AM PRIMARY Malignant neoplasm of prostate HALEY CONRAD [facility] [place] [facility] December 25, 2023 07:54 AM SECONDARY Essential (primary) hypertension HALEY CONRAD [facility] [place] [facility] Plan of Treatment: Future Appointments (+ 6 months) and Future Tests (+/- 45 days) The Plan of Treatment section includes future care activities for the patient from all ID treatmentfacilities. This section includes future appointments and future orders which are active, pending or scheduled. Future Appointments This section includes appointments that were scheduled to occur 6 months from the date of the Encounter, up to a maximum of 20 appointments. The data comes from all ID treatment facilities. Appointment Date/Time Appointment Type Appointme nt Facility Name Jan 31, 2024 02:15 PM AMBULATORY - MEDICINE ID [facility] [place] [facility] Feb 24, 2024 01:00 PM AMBULATORY - MEDICINE ID [facility] [place] [facility] Mar 30, 2024 02:30 PM AMBULATORY - MEDICINE ID [facility] [place] [facility] Apr 15, 2024 01:20 PM AMBULATORY - MEDICINE ID [facility] [place] [facility] Apr 23, 2024 01:00 PM AMBULATORY - MEDICINE ID [facility] [place] [facility] Jun 24, 2024 02:30 PM AMBULATORY - MEDICINE ID [facility] [place] [facility] Lab Results: +/- 30 days of the encounter This section includes the Chemistry and Hematology Lab Results on record with ID for the patient. Radiology Reports and Pathology Reports are provided separately, in subsequent sections. Lab Results This section contains the Chemistry/Hematology Results that were resulted 30 days before or 30 daysafter the date of the Encounter. Date/Time Source Result Type Result - Unit Interpretation Reference Range Comment December 18, 2023 12:25 PM [facility] PSA Specimen Type: SERUM No comment entered. Ordering Provider: HALEY CONRAD Report Released Date/Time: Nov 20, 2023 12:16 PM Reporting Lab: [facility] [address] [address] Performing Lab: [address] [address] PSA < 0.10 ng/mL 0.00-4.00 December 18, 2023 12:25 PM [facility] VITAMIN D (25-OH) Specimen Type: SERUM No comment entered. Ordering Provider: HALEY CONRAD Report Released Date/Time: Nov 20, 2023 12:16 PM Reporting Lab: [address] [address] Performing Lab: [address] [address] VITAMIN D (25-OH) 26 ng/mL 20-50 December 18, 2023 12:25 PM [facility] BASIC METABOLIC PANEL (fasting) Specimen Type: SERUM No comment entered. Ordering Provider: HALEY CONRAD Report Released Date/Time: Nov 20, 2023 12:16 PM Reporting Lab: [address] [address] Performing Lab: [address] [address] UREA NITROGEN 11 mg/dL 7-25 GLUCOSE 104 mg/dL H 65-100 SODIUM 139 mmol/L 135-145 POTASSIUM 4.3 mmol/L 3.5-5.0 CHLORIDE 105 mmol/L 100-110 CO2 25 meq/L 20-30 CREATININE, Serum 0.95 mg/dL 0.50-1.40 eGFR(CKD-EPI 2020) 80 mL/min >60 December 18, 2023 12:24 PM [facility] LIPID PANEL, NON FASTING Specimen Type: SERUM No comment entered. Ordering Provider: HALEY CONRAD Report Released Date/Time: Dec 13, 2023 11:59 AM Reporting Lab: [facility] [address] [phone] Performing Lab: [facility] [address] [address] CHOLESTEROL 172 mg/dL TRIGLYCERIDE 65 mg/dL 0-150 LDL calculated 111 mg/dL 0-129 CHOL/HDL 3.6 HDL CHOLESTEROL 48 mg/dL 40-60 December 18, 2023 12:24 PM [facility] BASIC METABOLIC PANEL (non-fasting) Specimen Type: SERUM No comment entered. Ordering Provider: HALEY CONRAD Report Released Date/Time: Dec 13, 2023 11:59 AM Reporting Lab: [facility] [address] [address] Performing Lab: [address] [address] UREA NITROGEN 11 mg/dL 7-25 GLUCOSE 104 mg/dL H 65-100 SODIUM 137 mmol/L 135-145 POTASSIUM 4.2 mmol/L 3.5-5.0 CHLORIDE 103 mmol/L 100-110 CO2 25 meq/L 20-30 CREATININE, Serum 0.92 mg/dL 0.50-1.40 eGFR(CKD-EPI 2020) 83 mL/min >60 Vital Signs: All taken on the encounter date This section contains inpatient and outpatient Vital Signs collected on the date of the Encounter. Date/Time Temperature Pulse Blood Pressure Respiratory Rate SP02 Pain Height Weight Body Mass Index Source December 24, 2023 02:04 PM 98.1 98 188/80 16 97 0 178 25 [facility] Social History: Smoking Status (Most current) and Tobacco Use (All prior to encounter date) This section includes the most current, and the historical, smoking and tobacco- related health factors from the ID facility where the Encounter took place. Current Smoking Status This section includes the most current smoking, or tobacco-related health factor, from the ID facility where the Encounter took place. Date/Time Current Smoking Status Comment Mariangel ramirez Jun 25, 2023 02:00 PM VA-TOBACCO NEVER USED [facility] Tobacco Use History This section includes a history of the smoking, or tobacco-related health factors, that were collected on or before the date of the Encounter. The data comes from the ID facility where the Encounter took place. Date/Time Smoking Status/Tobac co Use Comment Facility Jun 20, 2022 03:00 PM VA-TOBACCO FORMER USER [facility] [place] [facility] Jun 20, 2022 03:00 PM VA-TOBACCO QUIT 15 YRS OR MORE [facility] [place] [facility] May 22, 2021 02:00 PM VA-TOBACCO FORMER USER [facility] [place] [facility] May 22, 2021 02:00 PM VA-TOBACCO QUIT 15 YRS OR MORE [facility] [place] [facility] May 23, 2020 03:00 PM VA-TOBACCO FORMER USER [facility] [place] [facility] May 23, 2020 03:00 PM VA-TOBACCO QUIT 15 YRS OR MORE [facility] [place] [facility] Dec 09, 2018 01:33 PM VA-TOBACCO FORMER USER [facility] [place] [facility] Dec 09, 2018 01:33 PM VA-TOBACCO QUIT 15 YRS OR MORE [facility] [place] [facility] Mar 10, 2018 12:28 PM LIFETIME NON-TOBACCO USER [facility] [place] [facility] January 08, 2017 12:51 PM QUIT TOBACCO USE > 7 YEARS AGO pt quit in 1983 [facility] [place] [facility] December 29, 2015 01:13 PM QUIT TOBACCO USE > 7 YEARS AGO pt he quit in 1983 [facility] [place] [facility] Aug 29, 2005 02:28 PM HISTORY OF SMOKING Smoke free since 1983 [facility] [place] [facility] Aug 21, 2004 01:16 PM HISTORY OF SMOKING Smoke free since 1983 [facility] [place] [facility] January 01, 2003 01:29 PM HISTORY OF SMOKING Smoke free 20 years [facility] [place] [facility] Jun 26, 2002 01:31 PM QUIT TOBACCO USE > 7 YEARS AGO quit 15 years ago. [facility] [place] [facility] Sep 29, 2001 01:52 PM HISTORY OF SMOKING smoke free 15+ years Hx 35 years 2ppd ID [facility] [place] [facility] Sep 29, 2001 01:52 PM NON-TOBACCO USER [facility] Advance Directives: All historical and current Section Date Range: From patient's date of to the date document was created. This section includes ALL of a patient's completed or amended ID Advance and Rescinded Directives. The entries below indicate that a directive exists for the patient, but an actual copy is not included with this document. The data comes from all ID facilities. Date Advance Directives Provider Source Aug 16, 2013 ADVANCE DIRECTIVE CHERELLE WADDELL [facility] Encounter Notes: All associated encounter notes This section contains the clinical notes associated to the Encounter. Date/Time Encounter Note(s) Provider Source December 24, 2023 02:23 PM PHYSICIAN NOTE: LOCAL TITLE: MD NOTE STANDARD TITLE: PHYSICIAN NOTE DATE OF NOTE: DECEMBER 24, 2023@14:23 ENTRY DATE: DECEMBER 24, 2023@14:23:19 AUTHOR: HALEY CONRAD COSIGNER: URGENCY: STATUS: COMPLETED JEANIE ANDERSON is a 83 year old WHITE MALE who is being seen today in primary care for routine follow up. CARE TEAM Community Primary Care Provider: Dr. Shashi White ID Specialists: Community Specialists: HISTORY PERIOD OF SERVICE - [place] [facility] CONNECTED % - NONE FOUND HISTORY OF PRESENT ILLNESS Patient presents today for routine f/u- BP. very high today. does have home OMRON machine- states usually <140/90. has been on HCTZ 12.5 and amlodipine 2.5 mg bid. has urinary incontinuence after prostate surgery- discussed HCTZ can make this worse. reviewed labs- normal kidney function- he is wondering why liver function, lipids, not done every time. RELEVANT PAST MEDICAL HISTORY Active problems - Computerized Problem List is the source for the followin. Basal cell carcinoma of scalp following [facility] 2. Essential tremor 3. Generalized osteoarthritis 4. Trigger thumb 5. Hypercholesterolemia 6. Throat irritation 7. IC - Intermittent claudication (SNOMED CT 96814668) 8. Osteoarthritis * 9. Osteoarthritis * 10. Urinary incontinence (SNOMED CT 291620073) 11. Male erectile disorder 12. Prostate Cancer 13. Impaired FASTING Glucose 14. Alcohol dependence (SNOMED CT 38107691) trying to cut down 15. Elevated Prostate Specific Antigen (PSA) 16. HYPERLIPIDEMIA NEC/NOS 17. Essential hypertension (SNOMED CT 25303437) 18. Gastroesophageal reflux disease (SNOMED CT 474062008) 19. PURE HYPERCHOLESTEROLEM 20. ALLERGIC RHINITIS NOS ALLERGIES IBUPROFEN, SIMVASTATIN, LOVASTATIN, PRAVASTATIN, ROSUVASTATIN, LISINOPRIL COLESTIPOL, NIACIN MEDICATIONS VA and Non VA meds were reconciled with the patient who left with a corrected copy. Active and Recently Outpatient Medications (excluding Supplies): Active Outpatient Medications Status 1) AMLODIPINE BESYLATE 2.5MG TAB TAKE ONE TABLET BY ACTIVE MOUTH TWICE DAILY FOR BLOOD PRESSURE/HEART, DO NOT TAKE WITH GRAPEFRUIT JUICE 2) AMMONIUM LACTATE 12% LOTION APPLY MODERATE AMOUNT ACTIVE TOPICALLY ONCE DAILY NEEDED FOR DRY IRRITATED SKIN 3) HYDROCHLOROTHIAZIDE 12.5MG CAP TAKE ONE CAPSULE BY ACTIVE MOUTH ONCE DAILY FOR HIGH BLOOD PRESSURE 4) HYDROCORTISONE 2.5% RTL CRM W/APPLICATOR INSERT SMALL ACTIVE (S) AMOUNT RECTAL AREA FOUR TIMES DAILY NEEDED FOR HEMORRHOIDS 5) NIACIN (SLO-NIACIN) 500MG TAB,SA TAKE ONE TABLET BY ACTIVE MOUTH ONCE DAILY FOR HIGH CHOLESTEROL REVIEW OF SYMPTOMS NEGATIVE FOR: CONSTITUTION: no weight loss/gain, fatigue, fevers, night sweats HEENT: no vision problems, hearing loss,swallowing difficulties, sinus pain CV: no chest pain, palpitations, dyspnea on exertion, orthopnea RESP: no cough, shortness of breath, wheezing GI: no abdominal pain, N/V/D, constipation, blood in stool, normal appetite : no urinary frequency, nocturia, hematuria MUSC: no joint pain, joint swelling, muscle aches NEURO: no headaches, dizziness, memory loss, tremor, weakness PSYCH: no depression, anxiety, suicidal or homicidal thoughts SKIN: no rash, new skin lesions PHYSICAL EXAM Vitals: - - - - - - - B/P: 188/80 (12/24/2023 14:04) pulse: 98 (12/24/2023 14:04) resp: 16 (12/24/2023 14:04) temp: 98.1 F [36.7 C] (12/24/2023 14:04) Ht: 71 in [180.3 cm] (06/25/2023 13:58) Wgt: 178 lb [80.74 kg] (12/24/2023 14:04) BMI: BMI: 24.9 Exam: - - - - - - - RRR S1 S2 LCTA bilat no LE edema RECENT LABS CHEM 7 TREND LAB CUMULATIVE SELECTED Collection DT Spec GLUCOSE BUN CREATIN Sodium K+/Pot CL CO2 12/18/2023 12:25 SERUM 104 H 11 0.95 139 4.3 105 25 12/18/2023 12:24 SERUM 104 H 11 0.92 137 4.2 103 25 06/18/2023 11:59 SERUM 100 11 0.95 139 4.0 105 27 12/12/2022 11:54 SERUM 97 13 0.91 139 4.6 104 27 12/05/2021 12:26 SERUM 101 H 9 0.88 139 4.2 104 29 Collection DT Spec eGFR 05/20/2009 13:03 SERUM >60 11/17/2008 11:13 SERUM >60 05/19/2008 12:38 SERUM >60 12/09/2007 12:42 SERUM >60 06/12/2007 12:35 SERUM >60 LIVER PANEL TREND Collection DT Spec AST ALT T BILI ALK DEBBIE T. PROT ALBUMIN 06/18/2023 11:59 SERUM 21 16 0.9 64 6.6 3.9 12/12/2022 11:54 SERUM 23 16 0.9 69 6.9 4.1 LIPID PANEL TREND Collection DT Spec CHOL HDL CHO/HDL LDL-c TRIG 12/18/2023 12:24 SERUM 172 48 3.6 111 65 06/18/2023 11:59 SERUM 170 49 3.5 106 74 12/12/2022 11:54 SERUM 181 48 3.8 118 74 12/05/2021 12:26 SERUM 176 46 3.8 117 65 05/16/2021 10:46 SERUM 150 39 L 3.8 96 73 CBC TREND Collection DT Spec WBC RBC HGB HCT MCV MCH PLT 06/18/2023 11:59 BLOOD 6.13 4.90 15.0 43.4 88.6 30.6 324 12/12/2022 11:54 BLOOD 5.93 5.12 15.3 45.0 87.9 29.9 308 PSA TREND Collection DT Spec PSA SR- 12/18/2023 12:25 SERUM < 0.10 06/18/2023 11:59 SERUM < 0.10 HEMOGLOBIN A1C TREND Collection DT Spec HGBA1c 12/05/2021 12:26 BLOOD 5.3 09/16/2006 12:24 BLOOD 5.4 ASSESSMENT AND PLAN 1. HTN- poorly controlled and on tiny doses of meds. due to prostatectomy and urinary incontinence- recommend d/c HCTZ. will increase amlodipine to 5 mg bid and add valsartan 80 mg. goal is <140/80. f/u labs in 6 mo 2. history of Prostate cancer - undectable PSA. will stop hctz as after prostatectomy having urinary incontinence. FOLLOW UP f/u in 6 mo with labs VISIT TYPE: a HIGH complexity visit where over 60 minutes was spent in direct patient care, review of records and documentation. Upcoming Appointments: 03/30/2024 14:30 NHM/OPTOMETRY/PARISI /es/ Olga IVERSONO. PHYSICIAN Signed: 12/25/2023 07:54 HALEY CONRAD [facility] [place] [facility]
--- OUTSIDE RECORDS SUMMARY | 2024-10-07 11:49 | XMS_ITS | Encounter Summary ---
Author Name [facility] Address [address] [place] [id number] Care Team Providers Care Medical Instructor Name Role Phone HALEY CONRAD Primary Care Provider Unavailmakayla burch Insurance Providers: All historical and current Section Date Range: From patient's date of to the date document was created. This section includes the names of all active insurance providers for the patient. Insurance Provider Type of Coverage Plan Name Start of Policy Coverage End of Policy Coverage Group Number Member ID Insurance Provider's Telephone Number Policy Cobian's Name Patient's Relationship to Policy Cobian [facility]) MEDICARE ADVANTAGE MCR ([facility]) Aug 19, 2017 [id number] LISSET ANDERSON PATIENT [facility]) MEDICARE ADVANTAGE MCR ([facility]) Aug 19, 2014 [id number] LISSET ANDERSON PATIENT MEDICARE ([facility]) MEDICARE (M) PART A Aug 19, 2006 PART A [id number] LISSET ANDERSON PATIENT MEDICARE ([facility]) MEDICARE (M) PART B Aug 19, 2006 PART B [id number] LISSET ANDERSON PATIENT Selected Encounter This section includes the information on record at [place] for the Encounter. Date/Time Encounter Type Encounter Description Reason Provider Source Feb 24, 2024 01:00 PM Outpatient Encounter AUDIOLOGY ICD-10-CM Z02.89 Encounter for other administrative examinations RAFAEL NOVOA Naga Encounter Template Text not used by [place] Assessments - Encounter Diagnoses This section includes the primary and secondary diagnoses documented for the Encounter. Date/Time Primary/Secondary Diagnosis Diagnosis Name Provider Source Feb 24, 2024 02:39 PM PRIMARY Encounter for other administrative examinations RAFAEL NOVOA Ladonna Camargo [facility] [place] [facility] Feb 24, 2024 02:39 PM SECONDARY Sensorineural hearing loss, bilateral RAFAEL NOVOA [facility] [place] [facility] Feb 24, 2024 02:39 PM SECONDARY Tinnitus, bilateral RAFAEL NOVOA [facility] [place] [facility] Plan of Treatment: Future Appointments (+ 6 months) and Future Tests (+/- 45 days) The Plan of Treatment section includes future care activities for the patient [facility] This section includes future appointments and future orders which are active, pending or scheduled. Future Appointments This section includes appointments that were scheduled to occur 6 months from the date of the Encounter, up to a maximum of 20 appointments. The data comes from all [place] treatment facilities. Appointment Date/Time Appointment Type Appointme nt Facility Name Mar 30, 2024 02:30 PM AMBULATORY - MEDICINE [facility] [place] [facility] Apr 15, 2024 01:20 PM AMBULATORY - MEDICINE [facility] [place] [facility] Apr 23, 2024 01:00 PM AMBULATORY - MEDICINE [facility] [place] [facility] Jun 24, 2024 02:30 PM AMBULATORY - MEDICINE [facility] [place] [facility] Aug 14, 2024 01:30 PM AMBULATORY - REHAB MEDICIN [facility] [place] [facility] Social History: Smoking Status (Most current) and Tobacco Use (All prior to encounter date) This section includes the most current, and the historical, smoking and tobacco- related health factors from the [facility] facility where the Encounter took place. Current Smoking Status This section includes the most current smoking, or tobacco-related health factor, from the [place] facility where the Encounter took place. Date/Time Current Smoking Status Comment Mariangel ramirez Jun 25, 2023 02:00 PM VA-TOBACCO NEVER USED [facility] [place] [facility] Tobacco Use History This section includes a history of the smoking, or tobacco-related health factors, that were collected on or before the date of the Encounter. The data comes from the [place] facility where the Encounter took place. Date/Time Smoking Status/Tobac co Use Comment Facility Jun 20, 2022 03:00 PM VA-TOBACCO FORMER USER [place] [facility] [place] [facility] Jun 20, 2022 03:00 PM VA-TOBACCO QUIT 15 YRS OR MORE [facility] [place] [facility] May 22, 2021 02:00 PM VA-TOBACCO FORMER USER [facility] [place] [facility] May 22, 2021 02:00 PM VA-TOBACCO QUIT 15 YRS OR MORE [facility] [place] [facility] May 23, 2020 03:00 PM VA-TOBACCO FORMER USER [facility] [place] [facility] May 23, 2020 03:00 PM VA-TOBACCO QUIT 15 YRS OR MORE [facility] [place] [facility] Dec 09, 2018 01:33 PM VA-TOBACCO FORMER USER [facility] [place] [facility] Dec 09, 2018 01:33 PM VA-TOBACCO QUIT 15 YRS OR MORE [facility] [place] [facility] Mar 10, 2018 12:28 PM LIFETIME NON-TOBACCO USER [facility] [place] [facility] January 08, 2017 12:51 PM QUIT TOBACCO USE > 7 YEARS AGO pt quit in 1983 [place] [facility] [place] [facility] December 29, 2015 01:13 PM QUIT TOBACCO USE > 7 YEARS AGO pt he quit in 1983 [place] [facility] [place] [facility] Aug 29, 2005 02:28 PM HISTORY OF SMOKING Smoke free since 1983 [facility] [place] [facility] Aug 21, 2004 01:16 PM HISTORY OF SMOKING Smoke free since 1983 [facility] [place] [facility] January 01, 2003 01:29 PM HISTORY OF SMOKING Smoke free 20 years [facility] [place] [facility] Jun 26, 2002 01:31 PM QUIT TOBACCO USE > 7 YEARS AGO quit 15 years ago. [facility] Sep 29, 2001 01:52 PM HISTORY OF SMOKING smoke free 15+ years Hx 35 years 2ppd [facility] Sep 29, 2001 01:52 PM NON-TOBACCO USER [facility] Advance Directives: All historical and current Section Date Range: From patient's date of to the date document was created. This section includes ALL of a patient's completed or amended [place] Advance and Rescinded Directives. The entries below indicate that a directive exists for the patient, but an actual copy is not included with this document. The data comes from all [place] facilities. Date Advance Directives Provider Source Aug 16, 2013 ADVANCE DIRECTIVE CHERELLE WADDELL [facility] Encounter Notes: All associated encounter notes This section contains the clinical notes associated to the Encounter. Date/Time Encounter Note(s) Provider Source Feb 24, 2024 01:00 PM C & P EXAMINATION NOTE: LOCAL TITLE: COMPENSATION AND PENSION EXAM STANDARD TITLE: C & P EXAMINATION NOTE DATE OF NOTE: FEB 24, 2024@13:00 ENTRY DATE: FEB 24, 2024@14:28:39 AUTHOR: PACO NOVOA COSIGNER: URGENCY: STATUS: COMPLETED COMPENSATION AND PENSION EXAM Has ADDENDA Hearing Loss and Tinnitus Disability Benefits Questionnaire Name of patient/[place]: JEANIE ANDERSON Is this DBQ being completed in conjunction with a [place] [id number], C&P Examination Request? [X] Yes [ ] No How was the examination completed? (check all that apply) [X] In-person examination [X] Records reviewed [ ] Examination via approved video telehealth [ ] Other, please specify in comments box Comments: ALEXANDER and Evidence Review Indicate method used to obtain medical information to complete this document: [ ] Review of available records (without in-person or video telehealth examination) using the Acceptable Clinical Evidence (ALEXANDER) process because the existing medical evidence provided sufficient information on which to prepare the questionnaire and such an examination will likely provide no additional relevant evidence. [ ] Review of available records in conjunction with an interview with the (without in-person or telehealth examination) using the ALEXANDER process because the existing medical evidence supplemented with an interview provided sufficient information on which to prepare the questionnaire and such an examination would likely provide no additional relevant evidence. 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 Objective Findings a. Puretone thresholds in decibels (air conduction): RIGHT EAR + + A B C D E F G ========+========+======= =+========+========+====== ==+========+========+ 500 1000 2000 3000 4000 6000 8000 Avg Hz Hz* Hz Hz Hz Hz Hz Hz (B-E) ========+========+======= =+========+========+====== ==+========+======== 20 35 45 55 90 90 85 [id number] + + LEFT EAR + + A B C D E F G ========+========+======= =+========+========+====== ==+========+========+ 500 1000 2000 3000 4000 6000 8000 Avg Hz Hz* Hz Hz Hz Hz Hz Hz (B-E) ========+========+======= =+========+========+====== ==+========+======== 20 30 40 60 95 90 80 [phone] + + * The puretone threshold at 500 Hz is not used in determining the evaluation but is used in determining whether or not a ratable hearing loss exists. The average of B, C, D, and E. CNT - Could Not Test b. Were there one or more frequency(ies) that could not be tested: No c. Validity of puretone test results: Test results are valid for rating purposes. d. Speech Discrimination Score ([facility] word list): + + RIGHT EAR 94% +========= LEFT EAR 86% + + e. Appropriateness of Use of Word Recognition Score ([facility] word list): Right Ear: Is Word Discrimination Score available? Yes Word Discrimination Score appropriateness: Use of speech recognition score is appropriate for this [place]. Left Ear: Is Word Discrimination Score available? Yes Word Discrimination Score appropriateness: Use of word recognition score is appropriate for this [place]. f. Audiologic Findings Summary of Immittance (Tympanometry) Findings: + + RIGHT EAR LEFT EAR +=== += Acoustic immittance [ ] Normal [ ] Abnormal [X] Normal [ ] Abnormal +=== += Ipsilateral Acoustic Reflexes [ ] Normal [ ] Abnormal [ ] Normal [X] Abnormal +=== += Contralateral Acoustic Reflexes [ ] Normal [ ] Abnormal [ ] Normal [X] Abnormal +=== += Unable to interpret reflexes due to [ ] [ ] artifact +=== += Unable to obtain/ maintain seal [X] [ ] + + 2. Diagnosis RIGHT EAR --------- [ ] Normal hearing [ ] Conductive hearing loss ICD code: [ ] Mixed hearing loss ICD code: [X] Sensorineural hearing loss (in the frequency range of 500-4000 Hz)* ICD code: H90.3 [ ] Sensorineural hearing loss (in the frequency range of 6000 Hz or higher frequencies) ICD code: [ ] Significant changes in hearing thresholds in service LEFT EAR -------- [ ] Normal hearing [ ] Conductive hearing loss ICD code: [ ] Mixed hearing loss ICD code: [X] Sensorineural hearing loss (in the frequency range of 500-4000 Hz)* ICD code: H90.3 [ ] Sensorineural hearing loss (in the frequency range of 6000 Hz or higher frequencies) ICD code: [ ] Significant changes in hearing thresholds in service NOTES: * The [place] may have hearing loss at a level that is not considered to be a disability for VA purposes. This can occur when the auditory thresholds are greater than 25 dB at one or more frequencies in the 500-4000 Hz range. The may have impaired hearing, but it does not meet the criteria to be considered a disability for VA purposes. For VA purposes, the diagnosis of hearing impairment is based upon testing at frequency ranges of 500, 1000, 2000, 3000, and 4000 Hz. If there is no HL in the 500-4000 Hz range, but there is HL above 4000 Hz, check this box. The may have a significant change in hearing threshold in service, but it does not meet the criteria to be considered a disability for VA purposes. (A significant change in hearing threshold may indicate noise exposure or acoustic trauma.) 3. Etiology Right Ear Was there a permanent positive threshold shift (worse than reference threshold) greater than normal measurement variability at any frequency between 500 and 6000 Hz for the right ear? No Opinion provided for the right ear: Yes If present, is the [place]'s right ear hearing loss at least as not (likelihood is at least approximately balanced or nearly equal, if not higher) caused by or a result of an event in service? 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 Enlistment exam dated [birth year]04[birth year] and separation exam dated 01/08/63 show whisper test results and spoken voice test results of 15/15 for both ears. Whisper tests and spoken voice tests do not provide frequency specific information, therefore hearing levels at time of enlistment and at time of separation are unknown. As such, significant threshold shifts and hearing loss cannot be ruled out while was in the service. Given that 's MOS was highly probable for exposure to hazardous noise, and hearing levels are unknown at time of enlistment and at time of separation, 's hearing loss is at least as likely as not a result of service. Left Ear Was there a permanent positive threshold shift (worse than reference threshold) greater than normal measurement variability at any frequency between 500 and 6000 Hz for the left ear? No Opinion provided for the left ear: Yes If present, is the [place]'s left ear hearing loss at least as not (likelihood is at least approximately balanced or nearly equal, if not higher) caused by or a result of an event in service? 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 Enlistment exam dated [birth year] and separation exam dated 01/08/63 show whisper test results and spoken voice test results of 15/15 for both ears. Whisper tests and spoken voice tests do not provide frequency specific information, therefore hearing levels at time of enlistment and at time of separation are unknown. As such, significant threshold shifts and hearing loss cannot be ruled out while was in the service. Given that 's MOS was highly probable for exposure to hazardous noise, and hearing levels are unknown at time of enlistment and at time of separation, 's hearing loss is at least as likely as not a result of service. 4. Functional impact of hearing loss Does the [place]'s hearing loss impact ordinary conditions of daily life, including ability to work: Yes If yes, describe impact in the 's own words: [place] reports, There was an alarm going off at my apartment and I didn't hear it. 5. Remarks, if any, pertaining to hearing loss: No response provided SECTION 2: TINNITUS 1. Medical history Does the [place] report recurrent tinnitus: Yes Date and circumstances of onset of tinnitus: [place] reports longstanding, intermittent hissing tinnitus in both ears. 2. Etiology of tinnitus The has a diagnosis of clinical hearing loss, and his or her tinnitus is at least as likely as not (likelihood is at least approximately balanced or nearly equal, if not higher) a symptom associated with the hearing loss, as tinnitus is known to be a symptom associated with hearing loss. 3. Functional impact of tinnitus ------ Does the 's tinnitus impact ordinary conditions of daily life, including ability to work: No 4. Remarks, if any, pertaining to tinnitus:: No response provided NOTE: [place] may request additional medical information, including additional examinations if necessary to complete [place]'s review of the 's application. /ramon/ Elizabeth Wayne CCC-A Advice Line Rn Signed: 02/24/2024 14:28 02/24/2024 ADDENDUM STATUS: COMPLETED is a candidate for hearing aids. Medical clearance is not required. 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 reports longstanding, intermittent hissing tinnitus in both ears. He denies vertigo, congenital family history of hearing loss, or otologic history/complaints. [place] denies any occupational or recreational noise exposure. /ramon/ Elizabeth Wayne CCC-A Advice Line Rn Signed: 02/24/2024 14:43 PACO NOVOA [place] [facility]
--- OUTSIDE RECORDS SUMMARY | 2024-10-07 11:49 | XMS_ITS ---
Author Organization Shashi Bennett III, MD Address [address] [place] [address] Care Team Providers Care Sound Effects Manager Name Role Phone Shashi Bennett Primary Care Provider [phone] Allergies Allergen (clinical drug ingredient) Drug/Non Drug Allergy documented on EMR Reaction Allergy Type Onset Date Status lisinopril Lisinopril Unknown Drug Allergy Activ e ibuprofen Ibuprofen Unknown Drug Allergy Active Results Component Value Reference Range Notes URINE DIP STICK Reviewed date:06/10/2024 03:41:29 PM Interpretation: Performing Lab: Notes/Report: SG 1.010 1.005 - 1.025 pH 6.0 5.0 - 9.0 BLANE Negative Negative - NIT Negative Negative - PRO 15 Negative - Trace GLU Negative Negative - KET 5 Negative - UBG 0.2 0.1 - 1.8 VIKTORIA 1 0.2 - 1.3 BLD 5-10 Negative - REASON FOR VISIT annual exam Medications Medication SIG (Take, Route, Frequency, Duration) Notes Start Date End Date Status amLODIPine Besylate 2.5 MG 1 tablet Oral ly Twice a day Active Aspirin Adult Low Dose 81 MG 1 tablet Orally Once a day Active Clotrimazole 1 % APPLY AROUND/UNDER N AIL TWICE A DAY UNTIL CLEAR. KEEP NAIL DRY WHEN DOING WET WORK External Active Famotidine 20 MG 1 tablet at bedtime as needed Orally Once a day Active Niacin 500 MG 1 tablet with food O rally Once a day Active Social History Tobacco Use: Social History Observation Description Date Details (start date - stop date) Former Smoker NA - NA Sex Assigned At : Social History Observation Description Sex Assigned At Male Tobacco Use/Smoking Question Answer Notes Patient is a former smoker How long has it been since you last smoked? > 10 years Additional Findings: Tobacco Non-User Ex-cigaret te smoker Tobacco Control (Standard) Question Answer Notes Tobacco use: Former smoker How long has it been since you last smoked? Grea ter than 10 years Additional Findings: Tobacco non-user Ex-cigaret te smoker AUDIT-C (Standard) Question Answer Notes Did you have a drink containing alcohol in the p ast year? No Points 0 Interpretation Negative Vital Signs Temperature 99.0 degrees Fahrenheit 06/10/20 24 Blood pressure systolic 132 mm Hg 06/10/20 Blood pressure diastolic 77 mm Hg 024 Heart Rate 95 /min 06/10/2024 Height 71 in 06/10/2024 Weight 181 lbs 06/10/2024 BMI 25.24 kg/m2 06/10/2024 Encounters Encounter Location Date Provider Diagnosis Shashi Bennett III, MD [address] [place] [address] [place] [id number] 06/10/2024 Shashi Bennett Pure hypercholestero lemia E78.00 ; Prostate cancer C61 ; Overweight E66.3 ; Erectile dysfunction, unspecified erectile dysfunction type N52.9 ; Peripheral vascular disease I73.9 ; Gastroesophageal reflux disease without esophagitis K21.9 ; Former smoker Z87.891 ; Essential hypertension I10 ; Stress incontinence of urine N39.3 and Seasonal allergic rhinitis due to pollen J30.1 Assessments Encounter Date Diagnosis (ICD Code) Assessment Notes T reatment Notes Treatment Clinical Notes 06/10/2024 Pure hypercholestero lemia (ICD-10 - E78.00) His lipids are currently stable. We discussed at length the elements of a lipid-lowering diet. 06/10/2024 Prostate cancer (ICD -10 - C61) His PSA remains nondetectable. There is no sign of recurrent prostate cancer. 06/10/2024 Overweight (ICD-10 - E66.3) He has gained 2 pounds and his body mass index is slightly over 25. I recommended stabilizing his weight at this level by consuming a healthy diet. 06/10/2024 Erectile dysfunction , unspecified erectile dysfunction type (ICD-10 - N52.9) This problem has been successfully resolved with medication. 06/10/2024 Peripheral vascular disease (ICD-10 - I73.9) His claudication is stable and this issue has been addressed. No changes in his regimen are needed. He was advised to keep active. He was seen recently by vascular surgery to given an appointment in 1 year. 06/10/2024 Gastroesophageal ref lux disease without esophagitis (ICD-10 - K21.9) He is going to take omeprazole once a day until his symptoms resolve. I also recommended liquid antacid. 06/10/2024 Former smoker (ICD-1 0 - Z87.891) He is highly motivated not to smoke. We reviewed his plan to remain absent in times of stress or illness. 06/10/2024 Essential hypertensi on (ICD-10 - I10) His blood pressure is currently stable. No changes in his medications was necessary. 06/10/2024 Stress incontinence of urine (ICD-10 - N39.3) He will continue to see the urologist for this problem. He is under the care of Dr. Bernal.This is a result of his radical prostatectomy in the past. 06/10/2024 Seasonal allergic rhinitis due to pollen (ICD-10 - J30.1) I have recommended loratadine. If necessary he will receive fluticasone. Plan Of Treatment Medication Medication Name Sig Start Date Stop Date Notes amLODIPine Besylate 2.5 MG 1 tablet Orally Twice a day Aspirin Adult Low Dose 81 MG 1 tablet Orally Once a day Clotrimazole 1 % APPLY AROUND/UNDER N AIL TWICE A DAY UNTIL CLEAR. KEEP NAIL DRY WHEN DOING WET WORK External Famotidine 20 MG 1 tablet at bedtime as needed Orally Once a day Niacin 500 MG 1 tablet with food O rally Once a day Pending Test Test Name Order Date PROFILE, FASTING (COMPREHENSIVE METABOLI C) 06/10/2024 PSA, TOTAL 06/10/2024 CBC WITH AUTO DIFF 06/10/2024 Lipid Panel 06/10/2024 Next Appt Details Follow Up: 4 Months, Reason: OV Provider Name:Shashi Bennett, 10/12/2024 02:30:00 PM, [address] [place] [address] [place], [place], [phone], Provider Name:Shashi Bennett, 06/14/2025 02:30:00 PM, [address] [place] [address] [place], [phone], Progress Notes * Farhat ANDERSON ADOB: [birth year] (83 yo M)Acc No.[id number]:06/10/2024 Progress Notes Patient:?Farhat ANDERSON Provider:?Shashi Bennett MD :1940???Age:83 Y???Sex:Male Victoriano e:06/10/2024 Address:[address] [place] [address], [address], [id number] Subjective: * Chief Complaints: * ???Annual exam * HPI: ???Depression Screening:?PHQ-9?Little interest or pleasure in doing things?Not at all ?Feeling down, depressed, or hopeless?Not at all ?Trouble falling or staying asleep, or sleeping too much?Not at all ?Feeling tired or having little energy?Not at all ?Poor appetite or overeating?Not at all ?Feeling bad about yourself or that you are a failure, or have let yourself or your family down?Not at all ?Trouble concentrating on things, such as reading the newspaper or watching television?Not at all ?Moving or speaking so slowly that other people could have noticed; or the opposite, being so fidgety or restless that you have been moving around a lot more than usual?Not at all ?Thoughts that you would be better off or of hurting yourself in some way?Not at all ?Total Score?0 ???COVID-19 Screening:?Questions?Have you experienced fever, chills, cough, sore throat, shortness of breath, difficulty breathing, muscle aches, loss of taste or smell??No ?Have you been exposed to the virus within the last 10 days??No ?Have you travelled internationally in the last 10 days??No ?Have you been exposed to COVID-19 in the past??No ???Fall Risk Screening:?Fall History?Have you had any falls with injury in the past year??No ?Have you had two or more falls in the past year??No ?Fall Risk Assessment:?No falls in the past year ???:? The patient, an 83-year-old male, reported an episode involving a person named Reji, who had been on pain medication for 10 years and started hallucinating due to lack of sleep. This resulted in a hospital stay for Reji. The patient also mentioned a stressful situation involving a threat of eviction from his apartment, which has since been resolved. The patient has been dealing with arthritis, which has affected his ability to work. He also reported having to get up at night to urinate, but this does not seem to be a major issue for him. The patient has a history of prostate removal and has considered getting an artificial urinary sphincter, but decided against it due to potential complications. He also mentioned having 100% blockage in an unspecified area, which affects him when he starts walking but improves as he pushes through it. This is likely due to peripheral vascular disease. * ROS:?General/Constitutional:?Admits?pain,?Arthritis of the fingers, stable claudication right leg ?only normal aches and pains.?Chills?denies.?Fatigue?admits.?Fever?denies.?ENT:?Decreased hearing?mild.?Respiratory:?Cough?denies.?Cardiovascular:?Chest pain with exertion?denies.?Dyspnea on exertion?denies.?Shortness of breath?denies.?Gastrointestinal:?Constipation?occasional.?Decreased appetite?denies.?Diarrhea?denies.?Heartburn?denies.?Nausea?denies.?Rectal bleeding?denies.?Vomiting?denies.?Hematology:?bruising?denies.?petechiae?denies.?Swollen glands?none have been noted.?Genitourinary:?Frequent urination?once a night.?Musculoskeletal:?Muscle aches?denies.?Painful joints?denies.?Sciatica?denies.?Weakness?denies.?Skin:?Itching?denies.?Rash?denies.?Skin lesion(s)?denies.?Neurologic:?Difficulty speaking?denies.?Dizziness?denies.?Headache?denies.?Low back pain?denies.?Psychiatric:?Depressed mood?denies.? * Medical History:? * Surgical History:?right ingu inal hernia repair late stonsils and agnoids removed radical prostatectomy for carcinoma the prostate 2007colonoscopy Dr. Shashi Bird 2014basel carcinoma removed top of head 06/2017Prostate removal * Hospitalization/Major Diagno stic Procedure:?Denies Past Hospitalization * Family History:?Father: dece ased 50 yrs, Myocardial infarction, [employer] hemorrhage.?Mother: 86 yrs, Hypertension, breast cancer.?Siblings: .?1 brother(s) . 2 daughter(s) - healthy. .? [...] 10 years ?Additional Findings: Tobacco Non-User?Ex-cigarette smoker ?Tobacco Control (Standard)?Tobacco use:?Former smoker ?How long has it been since you last smoked??Greater than 10 years ?Additional Findings: Tobacco non-user?Ex-cigarette smoker ???Drugs/Alcohol:?Drugs?Have you used drugs other than those for medical reasons in the past 12 months??No ???Drug/Alcohol:?AUDIT-C (Standard)?Did you have a drink containing alcohol in the past year??No ?Points?0 ?Interpretation?Negative * Medications:?TakingFamotidin e 20 MG Tablet 1 tablet at bedtime as needed Orally Once a day Aspirin Adult Low Dose 81 MG Tablet Delayed Release 1 tablet Orally Once a day amLODIPine Besylate 5 MG Tablet 1 tablet Orally Twice a day Niacin 500 MG Tablet 1 tablet with food Orally Once a day Clotrimazole 1 % Solution APPLY AROUND/UNDER NAIL TWICE A DAY UNTIL CLEAR. KEEP NAIL DRY WHEN DOING WET WORK External Taking Famotidine 20 MG Tablet 1 tablet at bedtime as needed Orally Once a day Taking Aspirin Adult Low Dose 81 MG Tablet Delayed Release 1 tablet Orally Once a day Taking amLODIPine Besylate 5 MG Tablet 1 tablet Orally Twice a day Taking Niacin 500 MG Tablet 1 tablet with food Orally Once a day Taking Clotrimazole 1 % Solution APPLY AROUND/UNDER NAIL TWICE A DAY UNTIL CLEAR. KEEP NAIL DRY WHEN DOING WET WORK External DiscontinuedOmeprazole 20 MG Capsule Delayed Release 1 capsule Orally as needed hydroCHLOROthiazide 12.5 MG Capsule 1 capsule in the morning Orally Every other day , Notes to Pharmacist: Prescribed by VAMedication List reviewed and reconciled with the patientDiscontinued Omeprazole 20 MG Capsule Delayed Release 1 capsule Orally as needed Discontinued hydroCHLOROthiazide 12.5 MG Capsule 1 capsule in the morning Orally Every other day , Notes to Pharmacist: Prescribed by VAMedication List reviewed and reconciled with the patient * Allergies:?IbuprofenLisinopr ilno[Allergies Verified] Objective: * Vitals:?Ht: 71, Wt:181, BMI: 25.24, BP:132/77, HR:95, Temp:99.0, Ht-cm: 180.34, Wt-k.1. * ???Past Orders: Lab:Lipid Panel * Collection Date 06/02/2024 08/20/2023 05/14/2023 Collection Time 11:17 AM 01:04 PM 12:43 PM Order Date 06/02/2024 08/20/2023 05/14/2023 Triglycerides 68 (Ref Range: <150 mg/dL) 64 (Ref Range: <150 mg/dL) 50 (Ref Range: <150 mg/dL) Cholesterol 177 (Ref Range: <200 mg/dL) 171 (Ref Range: <200 mg/dL) 149 (Ref Range: <200 mg/dL) LDL Cholesterol Calculated 115?H (Ref Range: <100 mg/dL) 107?H (Ref Range: <100 mg/dL) 94 (Ref Range: <100 mg/dL) HDL Cholesterol 49 (Ref Range: >40 mg/dL) 52 (Ref Range: >40 mg/dL) 45 (Ref Range: >40 mg/dL) * Lab:Prostate Specific Antige n * Collection Date 06/02/2024 05/14/2023 06/05/2022 Collection Time 11:17 AM 12:43 PM 01:04 PM Order Date 06/02/2024 05/14/2023 06/05/2022 Prostate Specific Antigen < 0.10 (Ref Range: <0.05-4.0 ng/mL) < 0.10 (Ref Range: <0.05-4.0 ng/mL) < 0.05 (Ref Range: <0.05-4.0 ng/mL) * Lab:Complete Blood Count Aut o Diff * Collection Date 06/02/2024 08/20/2023 05/14/2023 Collection Time 11:17 AM 01:04 PM 12:43 PM Order Date 06/02/2024 08/20/2023 05/14/2023 White Blood Count 6.0 (Ref Range: 4.8-10.8 X10*3/uL) 6.1 (Ref Range: 4.8-10.8 X10*3/uL) 6.3 (Ref Range: 4.8-10.8 X10*3/uL) Red Blood Count 4.80 (Ref Range: 4.60-5.80 X10*6/uL) 4.97 (Ref Range: 4.60-5.80 X10*6/uL) 4.84 (Ref Range: 4.60-5.80 X10*6/uL) Hemoglobin 14.6 (Ref Range: 14.0-18.0 g/dl) 14.9 (Ref Range: 14.0-18.0 g/dl) 14.6 (Ref Range: 14.0-18.0 g/dl) Hematocrit 42.8 (Ref Range: 42.0-52.0 %) 44.0 (Ref Range: 42.0-52.0 %) 43.1 (Ref Range: 42.0-52.0 %) Mean Corpuscular Volume 89.2 (Ref Range: 80.0-98.0 fL) 88.5 (Ref Range: 80.0-98.0 fL) 89.0 (Ref Range: 80.0-98.0 fL) Mean Corpuscular Hemoglobin 30.4 (Ref Range: 27.0-33.0 pg) 30.0 (Ref Range: 27.0-33.0 pg) 30.2 (Ref Range: 27.0-33.0 pg) Mean Corpuscular HGB Conc 34.1 (Ref Range: 31.0-36.0 g/dl) 33.9 (Ref Range: 31.0-36.0 g/dl) 33.9 (Ref Range: 31.0-36.0 g/dl) Red Cell Distribution Width 12.3 (Ref Range: 11.0-16.0 %) 12.8 (Ref Range: 11.0-16.0 %) 12.4 (Ref Range: 11.0-16.0 %) Platelet Count 291 (Ref Range: 160-400 X10*3/uL) 280 (Ref Range: 160-400 X10*3/uL) 286 (Ref Range: 160-400 X10*3/uL) Mean Platelet Volume 8.7?L (Ref Range: 9.4-12.4 fL) 9.4 (Ref Range: 9.4-12.4 fL) 9.2?L (Ref Range: 9.4-12.4 fL) Neutrophils Percent Auto 54.8 (Ref Range: 45-73 %) 58.7 (Ref Range: 45-73 %) 55.3 (Ref Range: 45-73 %) Imm Gran Pct Auto 0.3 (Ref Range: 0.0-0.4 %) 0.3 (Ref Range: 0.0-0.4 %) 0.3 (Ref Range: 0.0-0.4 %) Lymphocytes Percent Auto 29.8 (Ref Range: 20-40 %) 27.6 (Ref Range: 20-40 %) 30.0 (Ref Range: 20-40 %) Monocytes Percent Auto 9.9 (Ref Range: 2-11 %) 11.0 (Ref Range: 2-11 %) 11.0 (Ref Range: 2-11 %) Eosinophils Percent Auto 3.9 (Ref Range: 0-4 %) 1.6 (Ref Range: 0-4 %) 2.1 (Ref Range: 0-4 %) Basophils Percent Auto 1.3 (Ref Range: 0-2 %) 0.8 (Ref Range: 0-2 %) 1.3 (Ref Range: 0-2 %) NRBC Pct Auto 0.0 (Ref Range: 0.0-0.2 /100WBC) 0.0 (Ref Range: 0.0-0.2 /100WBC) 0.0 (Ref Range: 0.0-0.2 /100WBC) Neutrophils Absolute Auto 3.3 (Ref Range: 2.0-8.3 x10*3/uL) 3.6 (Ref Range: 2.0-8.3 x10*3/uL) 3.5 (Ref Range: 2.0-8.3 x10*3/uL) Imm Gran Abs Auto 0.02 (Ref Range: 0.00-0.03 X10*3/uL) 0.02 (Ref Range: 0.00-0.03 X10*3/uL) 0.02 (Ref Range: 0.00-0.03 X10*3/uL) Lymphocytes Absolute Auto 1.8 (Ref Range: 1.2-4.9 X10*3/uL) 1.7 (Ref Range: 1.2-4.9 X10*3/uL) 1.9 (Ref Range: 1.2-4.9 X10*3/uL) Monocytes Absolute Auto 0.6 (Ref Range: 0.1-1.2 X10*3/uL) 0.7 (Ref Range: 0.1-1.2 X10*3/uL) 0.7 (Ref Range: 0.1-1.2 X10*3/uL) Eosinophils Absolute Auto 0.2 (Ref Range: 0.0-0.4 X10*3/uL) 0.1 (Ref Range: 0.0-0.4 X10*3/uL) 0.1 (Ref Range: 0.0-0.4 X10*3/uL) Basophils Absolute Auto 0.1 (Ref Range: 0.0-0.2 X10*3/uL) 0.1 (Ref Range: 0.0-0.2 X10*3/uL) 0.1 (Ref Range: 0.0-0.2 X10*3/uL) NRBC Abs Auto 0.000 (Ref Range: 0.0-0.012 X10*3/uL) 0.000 (Ref Range: 0.0-0.012 X10*3/uL) 0.000 (Ref Range: 0.0-0.012 X10*3/uL) * Lab:[facility]. Radha l Fast * Collection Date 06/02/2024 08/20/2023 05/14/2023 Collection Time 11:17 AM 01:04 PM 12:43 PM Order Date 06/02/2024 08/20/2023 05/14/2023 Sodium 139 (Ref Range: 135-145 mmol/L) 141 (Ref Range: 135-145 mmol/L) 139 (Ref Range: 135-145 mmol/L) Bilirubin Total 0.9 (Ref Range: 0.0-1.0 mg/dL) 0.9 (Ref Range: 0.0-1.0 mg/dL) 0.8 (Ref Range: 0.0-1.0 mg/dL) Aspartate Amino Transferase 22 (Ref Range: 5-37 U/L) 27 (Ref Range: 5-37 U/L) 23 (Ref Range: 5-37 U/L) Alanine Aminotransferase 15 (Ref Range: 0-40 U/L) 15 (Ref Range: 0-40 U/L) 14 (Ref Range: 0-40 U/L) Total Protein 6.6 (Ref Range: 6.5-8.0 g/dL) 6.9 (Ref Range: 6.5-8.0 g/dL) 6.5 (Ref Range: 6.5-8.0 g/dL) Albumin Level 4.0 (Ref Range: 3.5-5.0 g/dL) 4.0 (Ref Range: 3.5-5.0 g/dL) 3.9 (Ref Range: 3.5-5.0 g/dL) Alkaline Phosphatase 57 (Ref Range: 39-117 U/L) 55 (Ref Range: 39-117 U/L) 64 (Ref Range: 39-117 U/L) Potassium 3.9 (Ref Range: 3.3-5.1 mmol/L) 4.4 (Ref Range: 3.3-5.1 mmol/L) 4.2 (Ref Range: 3.3-5.1 mmol/L) Chloride 107 (Ref Range: 96-108 mmol/L) 106 (Ref Range: 96-108 mmol/L) 106 (Ref Range: 96-108 mmol/L) Carbon Dioxide 28 (Ref Range: 22-29 mmol/L) 26 (Ref Range: 22-29 mmol/L) 27 (Ref Range: 22-29 mmol/L) Anion Gap 8?L (Ref Range: 12-20) 13 (Ref Range: 12-20) 10?L (Ref Range: 12-20) Blood Urea Nitrogen 13 (Ref Range: 9-16 mg/dL) 16 (Ref Range: 9-16 mg/dL) 9 (Ref Range: 9-16 mg/dL) Creatinine 0.89 (Ref Range: 0.5-1.4 mg/dL) 0.92 (Ref Range: 0.5-1.4 mg/dL) 0.89 (Ref Range: 0.5-1.4 mg/dL) Estimated Glomerular Filt Rate > 60 > 60 > 60 Glucose Fasting 98 (Ref Range: 60-99 mg/dL) 100?H (Ref Range: 60-99 mg/dL) 96 (Ref Range: 60-99 mg/dL) Calcium 8.8 (Ref Range: 8.4-10.2 mg/dL) 8.6 (Ref Range: 8.4-10.2 mg/dL) 8.8 (Ref Range: 8.4-10.2 mg/dL) * Examination: ???General Examination: ?GENERAL APPEARANCE:?pleasant, well nourished, well developed, in no acute distress, calm and relaxed, overweight, elderly man.?HEAD:?atraumatic, normocephalic.?EYES:?eomi, perrla, anicteric, conjugate.?EARS:?normal.?NOSE:?septum intact.?ORAL CAVITY:?normal, unremarkable.?NECK/THYROID:?no jugular venous distention, no carotid bruit, thyroid normal.?LYMPH NODES:?no enlarged lymph nodes,spleen normal.?SKIN:?no suspicious lesions, anicteric.?HEART:?no clicks, gallops, murmurs, or rubs, regular rhythm, S1, S2 normal, no s3, or vascular bruits.?LUNGS:?, diminished breath sounds throughout, no wheezes, rales, rhonchi, good air movement.?BREASTS:??no masses palpable bilaterally.?ABDOMEN:?bowel sounds normal, no ascites, no organomegaly, no mass, overweight.?RECTAL EXAM:?not examined.?MUSCULOSKELETAL:?extremities unremarkable, no clubbing, cyanosis or edema, Arthritic changes of the fingers, right leg warm and fifth intact skin.?PERIPHERAL PULSES:?Diminished right lower extremity.?NEUROLOGIC:?alert and oriented, cranial nerves 2-12 grossly intact, deep tendon reflexes 2+ symmetrical, motor strength normal upper and lower extremities, sensory exam intact.?PSYCH:?alert, oriented, good eye contact, cooperative with exam, cognitive function intact, speech clear, thought process logical, goal directed.? Assessment: * Assessment: 1.?Prostate cancer - C61 (Pr imary)???Notes :His PSA remains nondetectable.? There is no sign of recurrent prostate cancer.???2.?Pure hypercholesterolemia - E78.00???Notes :His lipids are currently stable. We discussed at length the elements of a lipid-lowering diet.???3.?Overweight - E66.3???Notes :He has gained 2 pounds and his body mass index is slightly over 25.? I recommended stabilizing his weight at this level by consuming a healthy diet.???4.?Erectile dysfunction, unspecified erectile dysfunction type - N52.9???Notes :This problem has been successfully resolved with medication.???5.?Peripheral vascular disease - I73.9???Notes :His claudication is stable and this issue has been addressed. No changes in his regimen are needed. He was advised to keep active. He was seen recently by vascular surgery to given an appointment in 1 year.???6.?Gastroesophageal reflux disease without esophagitis - K21.9???Notes :He is going to take omeprazole once a day until his symptoms resolve. I also recommended liquid antacid.???7.?Former smoker - Z87.891???Notes :He is highly motivated not to smoke. We reviewed his plan to remain absent in times of stress or illness.???8.?Essential hypertension - I10???Notes :His blood pressure is currently stable.? No changes in his medications was necessary.???9.?Stress incontinence of urine - N39.3???Notes :He will continue to see the urologist for this problem. He is under the care of Dr. Bernal.This is a result of his radical prostatectomy in the past.???10.?Seasonal allergic rhinitis due to pollen - J30.1???Notes :I have recommended loratadine. If necessary he will receive fluticasone.??? Plan: * Treatment: 2.?Overweight?LAB: PROFILE, FASTING (COMPREHENSIVE METABOLIC) ?LAB: PSA, TOTAL ?LAB: CBC WITH AUTO DIFF ?LAB: Lipid Panel 3.?Erectile dysfunction, uns pecified erectile dysfunction type?LAB: PROFILE, FASTING (COMPREHENSIVE METABOLIC) ?LAB: PSA, TOTAL ?LAB: CBC WITH AUTO DIFF ?LAB: Lipid Panel * Labs:? * ?Lab: URINE DIP STICK (C ollection Date & Time - 06/10/2024) ? Value Reference Range ?SG 1.010 1.005 - 1.025 * ?pH 6.0 5.0 - 9.0 * ?BLANE Negative Negative - * ?NIT Negative Negative - * ?PRO 15 Negative - Trac e * ?GLU Negative Negative - * ?KET 5 Negative - * ?UBG 0.2 0.1 - 1.8 * ?VIKTORIA 1 0.2 - 1.3 * ?BLD 5-10 Negative - * Procedure Codes:?57378 URINE -NO MICRO * Preventive Medicine:? ??Counseling:?Care goal follow-up plan:?Counseling for abnormal BMI given?Yes ?Above Normal BMI Follow-up?Dietary management education, guidance, and counseling ?Smoking/Tobacco Use?Patient counseled on the dangers of tobacco use and urged to quit.?06/10/2024 ??DM Care Plan:?Patient Lifestyle Goals?Patient wants to be able to manage diabetes without too much effort.?Treatment Goals?Blood Sugars less than < 115, HbA1C < 7.0.?Barriers?no barriers.?Self-Managment Goals?Work on weight loss, with a goal of losing 1 lb per week.? * Follow Up:?4 Months (Reason: OV) * Images: * Sign off status: Completed true * Provider:?Shashi Bennett MD Date:?05/20 Generated for Dorys watts/Laura/eTransmitting on:?10/07/2024 11:49 AM EST History and Physical Notes * HPI (History of Present Illness) Category Sub-Category Detail Notes Depression Screening PHQ-9 Little inte rest or pleasure in doing things: Not at all Feeling down, depressed, or hopeless: No t at all Trouble falling or staying asleep, or sl eeping too much: Not at all Feeling tired or having little energy: N ot at all Poor appetite or overeating: Not at all Feeling bad about yourself o r that you are a failure, or have let yourself or your family down: Not at all Trouble concentrating on thi ngs, such as reading the newspaper or watching television: Not at all Moving or speaking so slowly that other people could have noticed; or the opposite, being so fidgety or restless that you have been moving around a lot more than usual: Not at all Thoughts that you would be b sherron off or of hurting yourself in some way: Not at all Total Score: 0 Fall Risk Screening Fall History Have you had any falls with injury in the past year?: No Have you had two or more falls in the ?: No Fall Risk Assessment:: No falls in the year COVID-19 Screening Questions Have you had any new onset fever, chills, cough, congestion, sore throat, shortness of breath, muscle aches?: No Have you been exposed to the virus withi n the last 10 days?: No Have you travelled internationally in last 10 days?: No Have you been exposed to COVID-19 in the past?: No Examination Category Sub-Category Detail Notes General Examination GENERAL APPEARANCE: pleasant , well nourished, well developed, in no acute distress, calm and relaxed, overweight, elderly man HEAD: atraumatic, normocep halic EYES: eomi, perrla, anicte inocencio, conjugate EARS: normal NOSE: septum intact NECK/THYROID: no jugular venous di stention, no carotid bruit, thyroid normal HEART: no clicks, gallops, murmurs, or rubs, regular rhythm, S1, S2 normal, no s3, or vascular bruits LUNGS: , diminished breath sounds throughout, no wheezes, rales, rhonchi, good air movement ABDOMEN: bowel sounds normal, no ascites, no organomegaly, no mass, overweight NEUROLOGIC: alert and oriented, cranial nerves 2-12 grossly intact, deep tendon reflexes 2+ symmetrical, motor strength normal upper and lower extremities, sensory exam intact SKIN: no suspicious lesion s, anicteric PERIPHERAL PULSES: Diminished right low er extremity BREASTS: no masses palpable b ilaterally MUSCULOSKELETAL: extremities unremark able, no clubbing, cyanosis or edema, Arthritic changes of the fingers, right leg warm and fifth intact skin LYMPH NODES: no enlarged lymph no cony,spleen normal RECTAL EXAM: not examined PSYCH: alert, oriented, goo d eye contact, cooperative with exam, cognitive function intact, speech clear, thought process logical, goal directed ORAL CAVITY: normal, unremarkable
--- OUTSIDE RECORDS SUMMARY | 2024-10-07 11:49 | XMS_ITS | Clinical Summary ---
Author Organization [facility] Address [address] [place] [address] Care Team Providers Care Cheesemaking Laborer Name Role Phone Unavailable Primary Care Provider Unavailabl e Allergies Active Allergy Reactions Criticality Noted Date Comments Ibuprofen Rash,Diarrhea Low 06/02/2013 Lisinopril Swelling 01/30/2023 Medications omeprazole (PriLOSEC) [address] capsule Take 1 capsule by mouth at bed time. 11/27/2006 Active Aspirin 81 MG capsule Take 81 mg by mouth. 02/11/2019 Active amLODIPine-ator vastatin (Caduet) 10-10 MG tablet Take 1 tablet by mouth in the morning. Active niacin 500 MG tablet daily. Active hydroCHLOROthia zide (HYDRODiuril) 12.5 MG tablet Take 12.5 mg by mouth in the morning. Active amLODIPine (Norvasc) 2.5 MG tablet 2.5 mg. 04/21/2023 Active aspirin 81 MG EC tablet 81 mg. 06/25/2023 Active famotidine (Pepcid) 20 MG tablet Take 20 mg by mouth. 12/24/2023 Active valsartan (Diovan) 80 MG tablet Take 1 tablet by mouth Once per day. 12/24/2023 Active Encounters Date Type Department Care Team Description 09/15/2024 3:00 PM EST Office Visit [facility] ADULT D[facility] [address] [place] [address] Laurent Schmidt Dental calculus (Primary Dx) from Last 3 Months Social History Tobacco Use Types Packs/Day Years Used Date Smoking Tobacco: Never Passive Smoke Exposure: Never Smokeless Tobacco: Never Tobacco Cessation:Counseling Given: Not Answered Alcohol Use Standard Drinks/Week Comments Yes 1 (1 standard drink = 0.6 oz pur e alcohol) Sex and Gender Information Value Date Recorded Sex Assigned at Male 06/18/2022 10:25 AM EDT Legal Sex Male 10:25 AM EDT Gender Identity Male 06/18/2022 10:25 AM EDT Sexual Orientation Straight 06/18/2022 10 :25 AM EDT Last Filed Vital Signs Vital Sign Reading Time Taken Comments Blood Pressure 130/60 09/15/2024 2:47 PM EST Pulse 60 09/15/2024 2:47 PM EST Temperature - - Respiratory Rate - - Oxygen Saturation - - Inhaled Oxygen Concentration - - Weight - - Height - - Body Mass Index - - Plan of Treatment Health Maintenance Due Date Last Done Comments Depression Screening 1941 Lipid Panel 1941 SDOH Screening 1941 Alcohol/Substance Use Screening 1953 Zoster Vaccines (1 of 2) 1991 Pneumococcal Vaccine: 50+ Years (2 of 2 - PPSV23) 12/15/2015 12/14/2014, 11/25/2008 RSV Patients and Patients Aged 60 years or older (1 - 1-dose 75+ series) 2016 Dental Oral Exam 08/09/2024 02/07/2024, 12/2022, 09/10/2022 DTaP/Tdap/Td Vaccines (3 - Td or Tdap) 12/14/2024 12/14/2014, 12/14/2014, 07/20/2010 Dental X-Ray: Bitewings 02/07/2025 02/07/2024, 09/10 Dental Prophylaxis 03/16/2025 09/15/2024, 0 02/07/2024, 07/23/2023, Additional history exists Tobacco Screening 09/15/2025 09/15/2024 Dental X-Ray: Full Mouth 02/07/2027 02/07/2024 COVID-19 Vaccine Completed 06/24/2024, 02/2023, 06/27/2022, Additional history exists Influenza Vaccine Completed 06/24/2024, , 06/11/2022, Additional history exists HIB Vaccines Aged Out No longer eligi ble based on patient's age to complete this topic HPV Vaccines Aged Out No longer eligi ble based on patient's age to complete this topic Hepatitis A Vaccines Aged Out No long er eligible based on patient's age to complete this topic Hepatitis B Vaccines Aged Out No long er eligible based on patient's age to complete this topic IPV Vaccines Aged Out No longer eligi ble based on patient's age to complete this topic Meningococcal Vaccine Aged Out No germaine gardenia eligible based on patient's age to complete this topic RSV under 20 months Aged Out No longe r eligible based on patient's age to complete this topic Rotavirus Vaccines Aged Out No longer eligible based on patient's age to complete this topic Procedures Procedure Name Priority Date/Time Associated Diagnosis Comments CASE PRESENTATION, DETAILED AND EXTENSIVE TREATMENT PLANNING Routine 09/15/2024 3:00 PM EST ORAL HYGIENE INSTRUCTIONS Routine 2024 3:00 PM EST PROPHYLAXIS - ADULT Routine 09/15/2024 3 :00 PM EST INTRAORAL - COMPLETE SERIES OF RADIOGRAPHIC IMAGES Routine 02/07/2024 2:00 PM EDT PERIODIC ORAL EVALUATION - ESTABLISHED PATIENT Routine 02/07/2024 2:00 PM EDT from Last 3 Months or Most Recently Relevant to Health Maintenance Insurance DENTAL - DQ [facility]
--- OUTSIDE RECORDS SUMMARY | 2024-10-07 11:49 | XMS_ITS | Encounter Summary ---
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 Liquors Sales Supervisor Name Role Phone HALEY CONRAD Primary Care [...] Cobian's Name Patient's Relationship to Policy Cobian [facility] ([facility]) MEDICARE ADVANTAGE MCR ([facility]) Aug 19, 2017 [id number] LISSET ANDERSON PATIENT [facility] ([facility]) MEDICARE ADVANTAGE MCR ([facility]) Aug 19, 2014 [id number] LISSET ANDERSON PATIENT MEDICARE (WN) MEDICARE (M) PART A Aug 19, 2006 PART A [id number] [phone] LISSET ANDERSON PATIENT MEDICARE (WNR) MEDICARE (M) PART B Aug 19, 2006 PART B [id number] [phone] LISSET ANDERSON PATIENT Selected Encounter This section includes the information on record at [place] for the Encounter. Date/Time Encounter Type Encounter Description Reason Provider Source Sep 17, 2024 03:00 PM CONFORMITY EVALUATION AUDIOLOGY ICD-10-CM Z46.1 Encounter for fitting and adjustment of hearing aid NANCY SWEENEY Encounter Template Text not used by [place] Assessments - Encounter Diagnoses This section includes the primary and secondary diagnoses documented for the Encounter. Date/Time Primary/Secondary Diagnosis Diagnosis Name Provider Source Sep 17, 2024 03:34 PM PRIMARY Encounter for fitting and adjustment of hearing aid [facility] Sep 17, 2024 03:34 PM SECONDARY Sensorineural hearing loss, bilateral [facility]ENE[facility] Plan of Treatment: Future Appointments (+ 6 months) and Future Tests (+/- 45 days) The Plan of Treatment section includes future care activities for the patient from all [place] treatmentfacilities. This section includes future appointments and future orders which are active, pending or scheduled. Future Appointments This section includes appointments that were scheduled to occur 6 months from the date of the Encounter, up to a maximum of 20 appointments. The data comes from all [place] treatment facilities. Appointment Date/Time Appointment Type Appointme nt Facility Name Oct 22, 2024 03:00 PM AMBULATORY - [facility] Nov 09, 2024 02:30 PM AMBULATORY - [facility] December 22, 2024 02:00 PM AMBULATORY - MEDICINE [facility] Social History: Smoking Status (Most current) and Tobacco Use (All prior to encounter date) This section includes the most current, and the historical, smoking and tobacco- related health factors from the [place] facility where the Encounter took place. Current Smoking Status This section includes the most current smoking, or tobacco-related health factor, from the [place] facility where the Encounter took place. Date/Time Current Smoking Status Comment Mariangel ramirez Jun 24, 2024 02:30 PM [facility]TO[facility]ACCO [facility] Tobacco Use History This section includes a history of the smoking, or tobacco-related health factors, that were collected on or before the date of the Encounter. The data comes from the [place] facility where the Encounter took place. Date/Time Smoking Status/Tobac co Use Comment Facility Jun 24, 2024 02:30 PM VA-TOBACCO QUIT 15 YRS OR MORE [place] [facility] Jun 25, 2023 02:00 PM VA-TOBACCO NEVER USED [facility] Jun 20, 2022 03:00 PM VA-TOBACCO FORMER USER [facility] Jun 20, 2022 03:00 PM VA-TOBACCO QUIT 15 YRS OR MORE [facility] May 22, 2021 02:00 PM VA-TOBACCO FORMER USER [facility] May 22, 2021 02:00 PM VA-TOBACCO QUIT 15 YRS OR MORE [facility] May 23, 2020 03:00 PM VA-TOBACCO FORMER USER [place] [facility] May 23, 2020 03:00 PM VA-TOBACCO QUIT 15 YRS OR MORE [facility] Dec 09, 2018 01:33 PM VA-TOBACCO FORMER USER [facility] Dec 09, 2018 01:33 PM VA-TOBACCO QUIT 15 YRS OR MORE [facility] Mar 10, 2018 12:28 PM LIFETIME NON-TOBACCO USER [place] [facility] January 08, 2017 12:51 PM QUIT TOBACCO USE > 7 YEARS AGO pt quit in 1983 [place] [facility] December 29, 2015 01:13 PM QUIT TOBACCO USE > 7 YEARS AGO pt he quit in 1983 [place] [facility] Aug 29, 2005 02:28 PM HISTORY OF SMOKING Smoke free since 1983 [place] [facility] Aug 21, 2004 01:16 PM HISTORY OF SMOKING Smoke free since 1983 [place] [facility] January 01, 2003 01:29 PM HISTORY OF SMOKING Smoke free 20 years [facility] Jun 26, 2002 01:31 PM QUIT TOBACCO USE > 7 YEARS AGO quit 15 years ago. [place] [facility] Sep 29, 2001 01:52 PM HISTORY OF SMOKING smoke free 15+ years Hx [address] [facility] Sep 29, 2001 01:52 PM NON-TOBACCO USER [facility] Advance Directives: All historical and current Section Date Range: From patient's date of to the date document was created. This section includes ALL of a patient's completed or amended [place] Advance and Rescinded Directives. The entries below indicate that a directive exists for the patient, but an actual copy is not included with this document. The data comes from all [place] facilities. Date Advance Directives Provider Source Aug 16, 2013 ADVANCE DIRECTIVE CHERELLE WADDELL [facility] Encounter Notes: All associated encounter notes This section contains the clinical notes associated to the Encounter. Date/Time Encounter Note(s) Provider Source Sep 17, 2024 10:00 AM AUDIOLOGY E & M NOTE: LOCAL TITLE: AUDIOLOGY CLINIC STANDARD TITLE: AUDIOLOGY E & M NOTE DATE OF NOTE: SEP 17, 2024@10:00 ENTRY DATE: SEP 17, 2024@10:01:03 AUTHOR: NANCY SWEENEY COSIGNER: URGENCY: STATUS: COMPLETED Dx CODE: Z46.1- Encounter for Fitting/Programming Hearing Aid(s); H90.3- Sensorineural Hearing Loss, Bilateral APPOINTMENT TYPE: Hearing Aid Fitting SUBJECTIVE (S): The patient was seen for hearing aid fitting and issuance. He had previously been evaluated and found to exhibit significant hearing loss for which amplification was recommended. How does the patient best learn? Verbal instruction, demonstration Does the patient have any cultural and amish beliefs, emotional barriers, physical or cognitive limitations, and communication barriers which may impact his ability to learn? No Desire and motivation to learn? Good OBJECTIVE (O): Physical fit of hearing aids was good. Patient verified comfort. Verification of an appropriate acoustic response was obtained using Real Ear measurements (speech mapping) and NAL-NL2 targets. The patient reported good subjective benefit as well. Feedback newspaper library manager was run. Hearing aids were found to be meeting targets adequately and MPO was not exceeding estimated UCL. Settings stored in ROBBIE. ASSESSMENT (A): The following devices were issued: Make: Oticon Model: Intent 1 miniRITE-R Right Serial Number: [id number] Left Serial Number: [id number] Battery size: RECHARGEABLE Warranty ends: 09/16/27 Trial Period ends: 02/13/25 Domes/Wax guards: 8mm flores dome double vent, mini Prowax Freight Solicitor: size 3 85 gain Program(s): Automatic Button(s): Short press= right raise, left lower Long press= on/off Fitting Formula: NAL-NL2 Counseling was completed throughout todays appointment using a standardized curriculum that includes but is not limited to; realistic expectations with amplification in adverse listening environments, acclimatization to own voice and environmental sounds (following real-ear measurements), the importance of consistent use of amplification, proper insertion/removal, care and maintenance (including wax guards/domes if applicable), signal and alerts of devices, and charging/batteries. The was provided the opportunity to practice in office and reports confidence/understanding in all items reviewed. Time Spent= 20 minutes The patient was informed of and signed/agreed to [place] policy on hearing aid issuance: Yes Users are responsible for the maintenance and security of their devices. Determination of need to replace a hearing aid is made by the [place] test desk operator. Hearing aids will not be replaced in cases of neglect, abuse, or excessive loss. Items issued are for personal use only. Prognosis for successful hearing aid use is good. PLAN (P): 1. Follow-up for programming/adjustments as needed. 2. The International Outcome Inventory-Hearing Aids (IOI-MEEKS) will be mailed to the in four weeks. He was asked to complete and mail back to clinic after completion. 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
--- OUTSIDE RECORDS SUMMARY | 2024-10-07 11:49 | XMS_ITS | Encounter Summary ---
Author Organization [employer] [facility] Address [address] [place] [address] Care Team Providers Care Project Coordinator Rn Name Role Phone Unavailable Primary Care Provider Unavailabl e Reason for Visit * Reason Comments Routine Cleaning Encounter Details Date Type Department Care Team (Late st Contact Info) Description 09/15/2024 3:00 PM EST Office Visit [facility] ADULT DENTAL [address] [place] [address] Laurent Schmidt Dental calculus (Primary Dx) Social History Tobacco Use Types Packs/Day Years Used Date Smoking Tobacco: Never Passive Smoke Exposure: Never Smokeless Tobacco: Never Alcohol Use Standard Drinks/Week Comments Yes 1 (1 standard drink = 0.6 oz pur e alcohol) Sex and Gender Information Value Date Recorded Sex Assigned at Male 06/18/2022 10:25 AM EDT Legal Sex Male 10:25 AM EDT Gender Identity Male 06/18/2022 10:25 AM EDT Sexual Orientation Straight 06/18/2022 10 :25 AM EDT documented as of this encounter Last Filed Vital Signs Vital Sign Reading Time Taken Comments Blood Pressure 130/60 09/15/2024 2:47 PM EST Pulse 60 09/15/2024 2:47 PM EST Temperature - - Respiratory Rate - - Oxygen Saturation - - Inhaled Oxygen Concentration - - Weight - - Height - - Body Mass Index - - documented in this encounter Progress Notes * Laurent Schmidt - 09/15/2024 3:00 PM EST Patient ID: Farhat Moreno is a 84 y.o. male. Time Out: Timeout Date: 09/15/24, Timeout Time: 1448 Location: [facility] Tooth: Maxilla and Mandible Procedure: Prophylaxis Verified the above with patient, accounts payable assistant, and provider. Confirmed via patient's chart, intraorally and by radiographs. Support Services Coordinator: not applicable Medical Hx: Vitals: Blood pressure 130/60, pulse 60. Medications, Med Hx reviewed with patient and updated in chart. Treatment Provided Dental procedures in this visit [id number] - PROPHYLAXIS - ADULT (Completed) Service provider: Laurent Schmidt Billing provider: Marycruz Breen DDS [id number] - ORAL HYGIENE INSTRUCTIONS (Completed) Service provider: Laurent Schmidt Billing provider: Marycruz Breen DDS [id number] - ADJUNCTIVE GENERAL SERVICES - PROFESSIONAL VISITS - CASE PRESENTATION, SUBSEQUENT TO DETAILED AND EXTENSIVE TREATMENT PLANNING (Completed) Service provider: Laurent Schmidt Billing provider: Marycruz Breen DDS Instruments Used: Ultrasonic Scalers and Prophy angle Fluoride: N/A Oral Cancer Screening: No lesions Head/Neck Exam: No Lesions Calculus: Light and Localized Plaque: Light and Localized Stain: Light and Localized Bleeding: Light and Localized Gingiva: Healthy [place]: Good Perio Chart: Not Completed Oral hygiene instructions provided to patient including brushing technique and flossing. Recommendations: [place] two times daily, modified flores technique, Floss daily Recall Frequency: 6 mo NV: 6mr Hygienist: Laurent Schmidt RDH documented in this encounter Plan of Treatment Scheduled Orders Name Type Priority Associated Diagnoses Orde r Schedule PROPHYLAXIS - ADULT Dental Routine 1 Occ urrences starting 09/15/2024 documented as of this encounter Procedures Procedure Name Priority Date/Time Associated Diagnosis Comments PROPHYLAXIS - ADULT Routine 09/15/2024 3 :00 PM EST ORAL HYGIENE INSTRUCTIONS Routine 2024 3:00 PM EST CASE PRESENTATION, DETAILED AND EXTENSIVE TREATMENT PLANNING Routine 09/15/2024 3:00 PM EST documented in this encounter Visit Diagnoses Diagnosis Dental calculus- Primary Accretions on teeth documented in this encounter
--- OUTSIDE RECORDS SUMMARY | 2024-10-07 11:50 | XMS_ITS | Encounter Summary ---
Author Organization [employer] Address [address] [place] [address] Care Team Providers Care Post Doctoral Researcher Name Role Phone Unavailable Primary Care Provider Unavailabl e Reason for Visit * Reason Onset Date Comments returning call for cancelled appt 05/23/2023 Encounter Details Date Type Department Care Team ([facility] st Contact Info) Description 05/23/2023 Telephone [facility] ADULT [facility] [address] [place] [address] Laurent Schmidt returning call for cancelled appt Social History Tobacco Use Types Packs/Day Years [...] AM EDT documented as of this encounter Miscellaneous Notes * Telephone Encounter - Silvina Chavez - 05/23/2023 10:06 AM EDT Patient returned call that appt had to be canceleld due to provider being out. No reasonable appt for patient. Wait listed again. Patient will also call Saturday of next week 05/31 to see if anything has opened up. documented in this encounter Plan of Treatment Not on file documented as of this encounter Visit Diagnoses Not on filedocumented in this encounter
--- OUTSIDE RECORDS SUMMARY | 2024-10-07 11:50 | XMS_ITS | Encounter Summary ---
Author Name [facility] [place] [facility] [place] Address [address] [place] [address] Care Team Providers Care Cab Starter Name Role Phone HALEY CONRAD Primary Care [...] Cobian's Name Patient's Relationship to Policy Cobian [facility] ([facility]) MEDICARE ADVANTAGE MCR ([facility]) Aug 19, 2017 [id number] LISSET ANDERSON PATIENT [facility] ([facility]) MEDICARE ADVANTAGE MCR ([facility]) Aug 19, 2014 [id number] LISSET ANDERSON PATIENT MEDICARE (WN) MEDICARE (M) PART A Aug 19, 2006 PART A [id number] LISSET ANDERSON PATIENT MEDICARE (WNR) MEDICARE (M) PART B Aug 19, 2006 PART B [id number] [phone] LISSET ANDERSON PATIENT Selected Encounter This section includes the information on record at [place] for the Encounter. Date/Time Encounter Type Encounter Description Reason Pro vider Source IHE Encounter Template Text not used by [place] Advance Directives: All historical and current Section Date Range: From patient's date of to the date document was created. This section includes ALL of a patient's completed or amended [place] Advance and Rescinded Directives. The entries below indicate that a directive exists for the patient, but an actual copy is not included with this document. The data comes from all [place] facilities. Date Advance Directives Provider Source Aug 16, 2013 ADVANCE DIRECTIVE CHERELLE WADDELL [place] [facility]
--- OUTSIDE RECORDS SUMMARY | 2024-10-07 11:50 | XMS_ITS | Continuity of Care Document ---
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 It does not include entries that were removed or entered in error. 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) Active 008 Condition [facility] Urinary incontinence (SNOMED CT 098366018) Active 007 Condition [facility] Alcohol Abuse Active Condition [facility] Allergic rhinitis Active Condition [facility] BENIGN NEOPLASM LG BOWEL Active Condition [place] Cancer, prostate, primary Active Condition [facility] Carcinoma of prostate Active Condition December 25, 2023 Entered By: HALEY CONRAD Comment: s/p prostatectomy [facility] Claudication (SNOMED CT 857293529) Active Condition [facility] Esophageal Reflux Active Condition [facility] Essential hypertension (SNOMED CT 10114834) Active Condition [facility] Essential tremor Active Condition [facility] Gastroesophageal reflux disease (SNOMED CT 671733442) Active Condition [facility] Generalized osteoarthritis Active Condition [facility] History of malignant neoplasm of skin excluding melanoma Active Condition [facility] Hypercholesterolemia Active Condition [facility] [place] [facility] [facility] Hypercholesterolemia Active Condition [facility] Hyperlipidemia Active Condition [facility] Hypertension Active Condition [facility] IC - Intermittent claudication (SNOMED CT 01722926) Active Condition Jun 24, 2024 Entered By: HALEY CONRAD Comment: right ROHAN 0.51, Left 0.75, 2023, sees Dr. Jerome [facility] Incontinence Active Condition [facility] Male erectile disorder Active Condition [facility] Osteoarthritis/DJD Active Condition [facility] Peripheral Vascular Disease Active Condition [facility] Trigger thumb Active Condition [facility] Diagnosis: ICD-10-CM Z46.1 Encounter for fitting and adjustment of hearing aid Active Diagnosis [facility] Diagnosis: ICD-10-CM H90.3 Sensorineural hearing loss, bilateral Active Diagnosis [facility] Diagnosis: ICD-10-CM C61 Malignant neoplasm of prostate Active Diagnosis [facility] Diagnosis: ICD-10-CM Z46.0 Encounter for fit/adjst of spectacles and contact lenses Active Diagnosis [facility] Diagnosis: ICD-10-CM H25.813 Combined forms of age-related cataract, bilateral Active Diagnosis [facility] Diagnosis: ICD-10-CM Z02.89 Encounter for other administrative examinations Active Diagnosis [facility] Diagnosis: ICD-10-CM K21.9 Gastro-esophageal reflux disease without esophagitis Active Diagnosis [facility] Diagnosis: ICD-10-CM M79.642 Pain in left hand Active Diagnosis [facility] Medications Combined list of outpatient medications from Department of Defense and Veterans Affairs facilities.Medications provided include 1) outpatient medications from the last 15 months, and 2) patient-reported medications. Medication Details Route Status Patient Instructions Prescription Expires Prescription Number Last Dispense Date Ordering Provider Order Date Order Qty Source AMLODIPINE BESYLATE 2.5MG TAB TAKE ONE TABLET BY MOUTH TWICE DAILY FOR BLOOD PRESSURE /HEART, DO NOT TAKE WITH GRAPEFRU IT JUICE ORAL DISCONT INUED (EDIT) 04/21/2024 [id number] [facility] JAWED 2022 180 [facility] AMLODIPINE BESYLATE 5MG TAB TAKE ONE TABLET BY MOUTH TWICE DAILY FOR HIGH BLOOD PRESSURE FOR BLOOD PRESSURE /HEART, DO NOT TAKE WITH GRAPEFRU IT JUICE ORAL ACTIVE 12/24/2024 [id number] FURCOLO,T PRADEEP 2023 180 [facility] AMMONIUM LACTATE 12% LOTION APPLY MODERATE AMOUNT TOPICALL Y ONCE DAILY NEEDED FOR DRY IRRITATE D SKIN TOPICA L ACTIVE 10/18/2024 [id number] [facility] JAWED 2023 240 [facility] AMMONIUM LACTATE 12% LOTION APPLY MODERATE AMOUNT TOPICALL Y ONCE DAILY NEEDED FOR DRY IRRITATE D SKIN TOPICA L DISCONT INUED 09/18/2023 [id number] [facility] JAWED 2022 240 [facility] ASPIRIN 81MG TAB,EC TAKE ONE TABLET BY MOUTH ONCE DAILY FOR MYOCARDI AL REINFARC TION PREVENTI ON TO PREVENT STROKE/H EART ATTACK ORAL ACTIVE 06/09/2025 [id number] FURCOLO,T PRADEEP 2023 120 [facility] ASPIRIN 81MG TAB,EC TAKE ONE TABLET BY MOUTH ONCE DAILY ORAL ACTIVE FURCOLO,T PRADEEP 2023 [facility] FAMOTIDINE 20MG TAB TAKE ONE TABLET BY MOUTH ONCE DAILY FOR EXCESSIV E PRODUCTI ON OF STOMACH ACID IN PLACE OF OMEPRAZO LE ORAL ACTIVE 12/24/2024 [id number] FURCOLO,T PRADEEP 2023 90 [facility] HYDROCHLORO THIAZIDE 12.5MG CAP TAKE ONE CAPSULE BY MOUTH ONCE DAILY FOR HIGH BLOOD PRESSURE ORAL DISCONT INUED BY PROVIDE R 05/13/2024 [id number] [facility] JAWED 2022 90 [facility] HYDROCORTIS ONE 2.5% CREAM,RTL W/APPLICATO R INSERT SMALL AMOUNT RECTAL AREA FOUR TIMES DAILY NEEDED FOR HEMORRHO IDS RECTAL ACTIVE 09/04/2025 [id number] FURCOLO,T PRADEEP 2024 60 [facility] HYDROCORTIS ONE 2.5% CREAM,RTL W/APPLICATO R INSERT SMALL AMOUNT RECTAL AREA FOUR TIMES DAILY NEEDED FOR HEMORRHO IDS RECTAL DISCONT INUED 08/02/2024 [id number] [facility] JAWED 2022 60 [facility] INCONT LINER DEPEND GUARDS USE 1 PAD TOPICALL Y FOUR TIMES DAILY NEEDED TOPICA L DISCONT INUED 11/21/2023 [id number] [facility] JAWED 2022 416 [facility] MULTIVIT/OP HTH AREDS2/LUTE IN/ZEAXANTH IN CAP/TAB TAKE 1 CAPSULE BY MOUTH TWICE DAILY FOR VITAMIN SUPPLEME NTATION IN THE MORNING AND EVENING, WITH FOOD ORAL ACTIVE 03/31/2025 [id number] Lizzie MCCULLOUGH NDREW E 2023 240 [facility] NIACIN (SLO-NIACIN ) 500MG TAB,SA TAKE ONE TABLET BY MOUTH ONCE DAILY FOR HIGH CHOLESTE ROL ORAL 06/25/2024 [id number] [facility] JAWED 2022 100 [facility] OMEPRAZOLE 20MG CAP,EC TAKE ONE CAPSULE BY MOUTH EVERY MORNING ORAL DISCONT INUED BY PROVIDE R 10/25/2023 [id number] [facility] VALSARTAN 80MG TAB TAKE ONE TABLET BY MOUTH ONCE DAILY FOR HIGH BLOOD PRESSURE ORAL ACTIVE 12/24/2024 [id number] FURCOLO,T PRADEEP 2023 90 [facility] Allergies, Adverse Reactions, Alerts Combined list of allergies from Department of Defense and Veterans Affairs facilities. It does not include entries that were removed or entered in error. Substance Category Reaction Severity Reaction type Status Date Reported Comments Source COLESTIPOL Propensity to adverse reactions to drug (finding) Chest pain active 5 [facility] [place] [facility] COLESTIPOL Propensity to adverse reactions to drug (finding) active 6 [facility] IBUPROFEN Propensity to adverse reactions to drug (finding) active 6 [facility] LISINOPRIL Propensity to adverse reactions to drug (finding) Tongue swelling active 2 [facility] LISINOPRIL Propensity to adverse reactions to drug (finding) active 6 [facility] LOVASTATIN Propensity to adverse reactions to drug (finding) active 6 [facility] NIACIN Propensity to adverse reactions to drug (finding) Diarrhea active 7 [facility] PRAVASTATIN Propensity to adverse reactions to drug (finding) Joint pain active 1 [facility] PRAVASTATIN Propensity to adverse reactions to drug (finding) active 6 [facility] ROSUVASTATIN Propensity to adverse reactions to drug (finding) Weakness present active 1 [facility] [place] [facility] ROSUVASTATIN Propensity to adverse reactions to drug (finding) active 6 [facility] SIMVASTATIN Propensity to adverse reactions to drug (finding) Abdominal pain active 6 [facility] SIMVASTATIN Propensity to adverse reactions to drug (finding) active 6 [facility] Immunizations Combined list of available immunizations from the Department of Defense and Veterans Affairs facilities. Immunization Series Date Given Administered By Site Reaction Lot Number CVX Code Drug Top Loader Status Comments Source COVID-19 (MODERNA), MRNA, LNP-S, PF, 50 MCG/0.5 ML (AGES 12+ YEARS) 2023 KALEB ZENG RIGHT DELTO ID [id number] 312 complet ed [facility] INFLUENZA, HIGH-DOSE, TRIVALENT, PF 2023 KALEB ZENG LEFT DELTO ID [id number] 135 complet ed [facility] COVID-19 (MODERNA), MRNA, LNP-S, PF, 50 MCG/0.5 ML (AGES 12+ YEARS) 1 2022 DOTYKRISTYER E LEFT DELTO ID [id number] 312 complet ed [facility] INFLUENZA, HIGH-DOSE, QUADRIVALENT 2022 DOTYKRISTYER E LEFT DELTO ID [id number] 197 complet ed [facility] INFLUENZA, UNSPECIFIED FORMULATION 2020 88 complet ed [facility] COVID-19 (MODERNA), MRNA, LNP-S, PF, 100 MCG/0.5 ML DOSE 2 2020 207 complet ed MOD; [id number]; 1 [facility] COVID-19 (MODERNA), MRNA, LNP-S, PF, 100 MCG/0.5 ML DOSE 1 2020 207 complet ed MOD; [id number]; 1 [facility] INFLUENZA, INJECTABLE, QUADRIVALENT, PRESERVATIVE FREE 2019 150 complet ed [facility] INFLUENZA, INJECTABLE, QUADRIVALENT, PRESERVATIVE FREE 2018 150 complet ed [facility] INFLUENZA, SEASONAL, INJECTABLE 2017 141 complet ed Site: Left Deltoid [facility] INFLUENZA, SEASONAL, INJECTABLE 2016 141 complet ed Site: Left Deltoid [facility] FLU,3 YRS (HISTORICAL) 2015 88 complet ed Site: Left Deltoid [facility] FLU,3 YRS (HISTORICAL) 2014 88 complet ed Site: Left Deltoid [facility] DTAP, UNSPECIFIED FORMULATION 2014 107 complet ed Site: Right Deltoid [facility] PNEUMOCOCCAL CONJUGATE PCV 13 2014 133 complet ed [facility] FLU,3 YRS (HISTORICAL) 2013 88 complet ed Site: Left Deltoid [facility] FLU,3 YRS (HISTORICAL) 2012 88 complet ed [facility] FLU,3 YRS (HISTORICAL) 2011 88 complet ed [facility] FLU,3 YRS (HISTORICAL) 2010 88 complet ed [facility] TD(ADULT) UNSPECIFIED FORMULATION 2009 139 complet ed Site: Left Deltoid [facility] FLU,3 YRS (HISTORICAL) 2009 88 complet ed Site: Left Deltoid [facility] FLU,3 YRS (HISTORICAL) 2008 88 complet ed Site: Left Deltoid [facility] PNEUMOCOCCAL, UNSPECIFIED FORMULATION 2008 109 complet ed [facility] FLU,3 YRS (HISTORICAL) 2007 88 complet ed Site: Left Deltoid [facility] FLU,3 YRS (HISTORICAL) 2006 88 complet ed Site: Right Deltoid [facility] FLU,3 YRS (HISTORICAL) 2004 JONA FORREST 88 complet ed [facility] FLU,3 YRS (HISTORICAL) 2003 KERRY PEREZ 88 complet ed [facility] FLU,3 YRS (HISTORICAL) 2001 FÉLIX SMALL 88 complet ed [facility] Results Combined list of recent chemistry, hematology and other laboratory results from Department of Defense and Veterans Affairs, ranging from 15 months to all on record, depending upon the facility. Order Name Results Value Reference Range Date Interpretation Specimen Comments Source LIVER FUNCTION PROTEIN [MASS/VOLUM E] IN SERUM OR PLASMA 7.0 g/dL 6.0 - 8.3 06/16 Specimen Type: SERUM No comment entered. Ordering Provider: AMANDA CONRAD Report Released Date/Time: December 25, 2023 07:54 AM Reporting Lab: [facility] [place] [address] [address] Performing Lab: [facility] [place] [facility] [address] [facility] [address] [facility] LIVER FUNCTION ALBUMIN [MASS/VOLUM E] IN SERUM OR PLASMA 4.1 g/dL 3.5 - 5.0 06/16 Specimen Type: SERUM No comment entered. Ordering Provider: AMANDA CONRAD Report Released Date/Time: December 25, 2023 07:54 AM Reporting Lab: [facility] [place] [address] [address] Performing Lab: [facility] [place] [address] [address] [facility] [place] [facility] LIVER FUNCTION ALKALINE PHOSPHATASE [ENZYMATIC ACTIVITY/VO LUME] IN SERUM OR PLASMA 64 U/L 40 - 150 06/16 Specimen Type: SERUM No comment entered. Ordering Provider: AMANDA CONRAD Report Released Date/Time: December 25, 2023 07:54 AM Reporting Lab: [facility] [place] [address] [address] Performing Lab: [facility] [place] [address] [address] [facility] [place] [facility] LIVER FUNCTION ASPARTATE AMINOTRANSF ERASE [ENZYMATIC ACTIVITY/VO LUME] IN SERUM OR PLASMA 25 U/L 5 - 34 06/16 Specimen Type: SERUM No comment entered. Ordering Provider: AMANDA CONRAD Report Released Date/Time: December 25, 2023 07:54 AM Reporting Lab: [facility] [place] [address] [address] Performing Lab: [facility] [place] [address] [facility] [place] [facility] LIVER FUNCTION ALANINE AMINOTRANSF ERASE [ENZYMATIC ACTIVITY/VO LUME] IN SERUM OR PLASMA 17 U/L 06/16 Specimen Type: SERUM No comment entered. Ordering Provider: AMANDA CONRAD Report Released Date/Time: December 25, 2023 07:54 AM Reporting Lab: [facility] [place] [address] [address] Performing Lab: [facility] [place] [address] [address] [facility] LIVER FUNCTION BILIRUBIN.T OTAL [MASS/VOLUM E] IN SERUM OR PLASMA 0.8 mg/dL 0.2 - 1.2 06/16 Specimen Type: SERUM No comment entered. Ordering Provider: AMANDA CONRAD Report Released Date/Time: December 25, 2023 07:54 AM Reporting Lab: [facility] [place] [address] [address] Performing Lab: [facility] [place] [address] [address] [facility] [place] [facility] LIPID PANEL FASTING CHOLESTEROL [MASS/VOLUM E] IN SERUM OR PLASMA 196 mg/dL 06/16 Specimen Type: SERUM No comment entered. Ordering Provider: AMANDA CONRAD Report Released Date/Time: December 25, 2023 07:54 AM Reporting Lab: [facility] [place] [address] [address] Performing Lab: [facility] [place] [address] [address] [facility] [place] [facility] LIPID PANEL FASTING TRIGLYCERID E [MASS/VOLUM E] IN SERUM OR PLASMA 64 mg/dL 0 - 150 06/16 Specimen Type: SERUM No comment entered. Ordering Provider: AMANDA CONRAD Report Released Date/Time: December 25, 2023 07:54 AM Reporting Lab: [facility] [place] [address] [address] Performing Lab: [facility] [place] [facility] [address] [facility] [address] [facility] LIPID PANEL FASTING CHOLESTEROL IN LDL [MASS/VOLUM E] IN SERUM OR PLASMA BY CALCULATION 127 mg/dL 0 - 129 06/16 Specimen Type: SERUM No comment entered. Ordering Provider: AMANDA CONRAD Report Released Date/Time: December 25, 2023 07:54 AM Reporting Lab: [facility] [place] [facility] [address] [facility] [address] Performing Lab: [facility] [place] [facility] [address] [facility] [address] [facility] LIPID PANEL FASTING CHOLESTEROL .TOTAL/CHOL ESTEROL IN HDL [MASS RATIO] IN SERUM OR PLASMA 3.5 06/16 Specimen Type: SERUM No comment entered. Ordering Provider: AMANDA CONRAD Report Released Date/Time: December 25, 2023 07:54 AM Reporting Lab: [facility] [place] [facility] [address] [facility] [address] Performing Lab: [facility] [place] [address] [address] [facility] LIPID PANEL FASTING CHOLESTEROL IN HDL [MASS/VOLUM E] IN SERUM OR PLASMA 56 mg/dL 40 - 60 06/16 Specimen Type: SERUM No comment entered. Ordering Provider: AMANDA CONRAD Report Released Date/Time: December 25, 2023 07:54 AM Reporting Lab: [facility] [place] [address] [address] Performing Lab: [facility] [place] [address] [address] [facility] [place] [facility] BASIC METABOLIC PANEL (fasting) UREA NITROGEN [MASS/VOLUM E] IN SERUM OR PLASMA 16 mg/dL 7 - 25 06/16 Specimen Type: SERUM No comment entered. Ordering Provider: AMANDA CONRAD Report Released Date/Time: December 25, 2023 07:54 AM Reporting Lab: [facility] [place] [address] [address] Performing Lab: [facility] [address] [facility] [address] [facility] BASIC METABOLIC PANEL (fasting) GLUCOSE [MASS/VOLUM E] IN SERUM OR PLASMA 85 mg/dL 65 - 100 06/16 Specimen Type: SERUM No comment entered. Ordering Provider: AMANDA CONRAD Report Released Date/Time: December 25, 2023 07:54 AM Reporting Lab: [facility] [address] [facility] [address] Performing Lab: [facility]N [facility] [address] [facility] [address] [facility] BASIC METABOLIC PANEL (fasting) SODIUM [MOLES/VOLU ME] IN SERUM OR PLASMA 139 mmol/L 135 - 145 06/16 Specimen Type: SERUM No comment entered. Ordering Provider: AMANDA CONRAD Report Released Date/Time: December 25, 2023 07:54 AM Reporting Lab: [facility] [address] [facility] [address] Performing Lab: [facility]TR[facility] [address] [facility] [address] [facility] BASIC METABOLIC PANEL (fasting) POTASSIUM [MOLES/VOLU ME] IN SERUM OR PLASMA 4.1 mmol/L 3.5 - 5.0 06/16 Specimen Type: SERUM No comment entered. Ordering Provider: AMANDA CONRAD Report Released Date/Time: December 25, 2023 07:54 AM Reporting Lab: [facility]TRN [facility] [address] [facility] [address] Performing Lab: [facility]ITALRSHELBY [facility]TRN [facility] SYSTEMUSE[address] [address] [facility] BASIC METABOLIC PANEL (fasting) CHLORIDE [MOLES/VOLU ME] IN SERUM OR PLASMA 105 mmol/L 100 - 110 06/16 Specimen Type: SERUM No comment entered. Ordering Provider: AMANDA CONRAD Report Released Date/Time: December 25, 2023 07:54 AM Reporting Lab: [facility] [place] [facility] [address] [facility] [address] Performing Lab: [facility] [place] [facility] [address] [facility] [address] [facility] BASIC METABOLIC PANEL (fasting) CARBON DIOXIDE, TOTAL [MOLES/VOLU ME] IN SERUM OR PLASMA 25 meq/L 20 - 30 06/16 Specimen Type: SERUM No comment entered. Ordering Provider: AMANDA CONRAD Report Released Date/Time: December 25, 2023 07:54 AM Reporting Lab: [facility] [place] [facility] [address] [facility] [address] Performing Lab: [facility] [address] [facility] BASIC METABOLIC PANEL (fasting) CREATININE [MASS/VOLUM E] IN SERUM OR PLASMA 0.96 mg/dL 0.50 - 1.40 06/16 Specimen Type: SERUM No comment entered. Ordering Provider: AMANDA CONRAD Report Released Date/Time: December 25, 2023 07:54 AM Reporting Lab: [facility] [address] [facility] [address] Performing Lab: [facility] SYSTEMUSETS [address] [address] [facility] BASIC METABOLIC PANEL (fasting) GLOMERULAR FILTRATION RATE/1.73 SQ M.PREDICTED [VOLUME RATE/AREA] IN SERUM, PLASMA OR BLOOD BY CREATININE- BASED FORMULA (CKD-EPI 2020) 79 mL/min 60 06/16 Specimen Type: SERUM No comment entered. Ordering Provider: AMANDA CONRAD Report Released Date/Time: December 25, 2023 07:54 AM Reporting Lab: [facility] [place] [facility] [address] [facility] [address] Performing Lab: [facility] [place] [address] [address] [facility] [place] [facility] PSA PROSTATE SPECIFIC AG [MASS/VOLUM E] IN SERUM OR PLASMA < 0.10ng /mL 0.00 - 4.00 12/17 Specimen Type: SERUM No comment entered. Ordering Provider: AMANDA CONRAD Report Released Date/Time: Nov 20, 2023 12:16 PM Reporting Lab: [facility]N [facility] [address] [facility] [address] Performing Lab: [facility] [address] [address] [facility] VITAMIN D (25-OH) 25-HYDROXYV ITAMIN D3 [MASS/VOLUM E] IN SERUM OR PLASMA 26 ng/mL 20 - 50 12/17 Specimen Type: SERUM No comment entered. Ordering Provider: AMANDA CONRAD Report Released Date/Time: Nov 20, 2023 12:16 PM Reporting Lab: [address] [address] Performing Lab: [address] [address] [facility] BASIC METABOLIC PANEL (fasting) UREA NITROGEN [MASS/VOLUM E] IN SERUM OR PLASMA 11 mg/dL 7 - 25 12/17 Specimen Type: SERUM No comment entered. Ordering Provider: AMANDA CONRAD Report Released Date/Time: Nov 20, 2023 12:16 PM Reporting Lab: [address] [address] Performing Lab: [facility] [address] [address] [facility] BASIC METABOLIC PANEL (fasting) GLUCOSE [MASS/VOLUM E] IN SERUM OR PLASMA 104 mg/dL 65 - 100 12/17 H Specimen Type: SERUM No comment entered. Ordering Provider: AMANDA CONRAD Report Released Date/Time: Nov 20, 2023 12:16 PM Reporting Lab: [address] [address] Performing Lab: [address] [address] [facility] BASIC METABOLIC PANEL (fasting) SODIUM [MOLES/VOLU ME] IN SERUM OR PLASMA 139 mmol/L 135 - 145 12/17 Specimen Type: SERUM No comment entered. Ordering Provider: AMANDA CONRAD Report Released Date/Time: Nov 20, 2023 12:16 PM Reporting Lab: [facility]USE[address] [address] Performing Lab: [facility] W[facility]N [facility] SYSTEMUSETS [address] [address] [facility] [facility] BASIC METABOLIC PANEL (fasting) POTASSIUM [MOLES/VOLU ME] IN SERUM OR PLASMA 4.3 mmol/L 3.5 - 5.0 12/17 Specimen Type: SERUM No comment entered. Ordering Provider: AMANDA CONRAD Report Released Date/Time: Nov 20, 2023 12:16 PM Reporting Lab: [facility]ITALRSHELBY [facility]ENTERTRN [facility] SYSTEMUSE[address] [address] Performing Lab: [facility]ITALRL WSTRN [facility] SYSTEMUSETS [address] [address] [facility]USE [facility] BASIC METABOLIC PANEL (fasting) CHLORIDE [MOLES/VOLU ME] IN SERUM OR PLASMA 105 mmol/L 100 - 110 12/17 Specimen Type: SERUM No comment entered. Ordering Provider: AMANDA CONRAD Report Released Date/Time: Nov 20, 2023 12:16 PM Reporting Lab: [facility]ITALRSHELBY [facility] CENTERTRN [place] [address] [address] Performing Lab: [facility]ITALRL WSTRN [facility] SYSTEMUSETS [address] [address] [facility]ITALRFLOWERS HOSPITALN [facility] SYSTEMUSE [facility] BASIC METABOLIC PANEL (fasting) CARBON DIOXIDE, TOTAL [MOLES/VOLU ME] IN SERUM OR PLASMA 25 meq/L 20 - 30 12/17 Specimen Type: SERUM No comment entered. Ordering Provider: AMANDA CONRAD Report Released Date/Time: Nov 20, 2023 12:16 PM Reporting Lab: [facility]ITALRSHELBY [facility] CENTERTRN [facility] SYSTEMUSE[address] [address] Performing Lab: [facility]ITALRSHELBY [facility] CENTERTRN [facility] [address] [facility] [address] [facility] BASIC METABOLIC PANEL (fasting) CREATININE [MASS/VOLUM E] IN SERUM OR PLASMA 0.95 mg/dL 0.50 - 1.40 12/17 Specimen Type: SERUM No comment entered. Ordering Provider: AMANDA CONRAD Report Released Date/Time: Nov 20, 2023 12:16 PM Reporting Lab: [facility]ITALRL TRN MASSUSE[address] [address] Performing Lab: [facility]OSPITALRFLOWERS HOSPITALN [address] [address] [facility] BASIC METABOLIC PANEL (fasting) GLOMERULAR FILTRATION RATE/1.73 SQ M.PREDICTED [VOLUME RATE/AREA] IN SERUM, PLASMA OR BLOOD BY CREATININE- BASED FORMULA (CKD-EPI 2020) 80 mL/min 60 12/17 Specimen Type: SERUM No comment entered. Ordering Provider: AMANDA CONRAD Report Released Date/Time: Nov 20, 2023 12:16 PM Reporting Lab: [facility]ITALRFLOWERS HOSPITALN [address] [address] Performing Lab: [facility]ITALRFLOWERS HOSPITALN [address] [address] [facility] LIPID PANEL, NON FASTING CHOLESTEROL [MASS/VOLUM E] IN SERUM OR PLASMA 172 mg/dL 12/17 Specimen Type: SERUM No comment entered. Ordering Provider: AMANDA CONRAD Report Released Date/Time: Dec 13, 2023 11:59 AM Reporting Lab: [facility]ITALRSHELBY [facility]ENTERTRN [facility] SYSTEMUSE[address] [address] Performing Lab: [facility]PITALRFLOWERS HOSPITALN [facility] SYSTEMUSE[address] [address] [facility] LIPID PANEL, NON FASTING TRIGLYCERID E [MASS/VOLUM E] IN SERUM OR PLASMA 65 mg/dL 0 - 150 12/17 Specimen Type: SERUM No comment entered. Ordering Provider: FURCOLO,TIN A Report Released Date/Time: Dec 13, 2023 11:59 AM Reporting Lab: [facility] [place] [facility] [address] [facility] [address] Performing Lab: [facility] [place] [facility] [address] [facility] [address] [facility]ITALRL WSTRN [facility]USE [facility] LIPID PANEL, NON FASTING CHOLESTEROL IN LDL [MASS/VOLUM E] IN SERUM OR PLASMA BY CALCULATION 111 mg/dL 0 - 129 12/17 Specimen Type: SERUM No comment entered. Ordering Provider: AMANDA CONRAD Report Released Date/Time: Dec 13, 2023 11:59 AM Reporting Lab: [facility] [place] [facility] [address] [facility] [address] Performing Lab: [facility] [place] [facility] [address] [facility] [address] [facility]OSPITALRL TRN [facility] SYSTEMUSE [facility] LIPID PANEL, NON FASTING CHOLESTEROL .TOTAL/CHOL ESTEROL IN HDL [MASS RATIO] IN SERUM OR PLASMA 3.6 12/17 Specimen Type: SERUM No comment entered. Ordering Provider: AMANDA CONRAD Report Released Date/Time: Dec 13, 2023 11:59 AM Reporting Lab: [facility] [place] [facility] [address] [facility] [address] Performing Lab: [facility] [facility] [address] [facility] [address] [facility]PITALRL TRN [facility] SYSTEMUSE [facility] LIPID PANEL, NON FASTING CHOLESTEROL IN HDL [MASS/VOLUM E] IN SERUM OR PLASMA 48 mg/dL 40 - 60 12/17 Specimen Type: SERUM No comment entered. Ordering Provider: AMANDA CONRAD Report Released Date/Time: Dec 13, 2023 11:59 AM Reporting Lab: [facility] [place] [facility] [address] [facility] [address] Performing Lab: [facility] [place] [facility] [address] [facility] [address] [facility]ITALRL WSTRN [place] [facility] BASIC METABOLIC PANEL (non-fast ing) UREA NITROGEN [MASS/VOLUM E] IN SERUM OR PLASMA 11 mg/dL 7 - 25 12/17 Specimen Type: SERUM No comment entered. Ordering Provider: AMANDA CONRAD Report Released Date/Time: Dec 13, 2023 11:59 AM Reporting Lab: [facility]ITALRL [facility] [place] [facility] [address] [facility] [address] Performing Lab: [facility]ITALRL WSTRN [facility] SYSTEMUSETS [facility] [address] [facility] [address] [facility]ITALRL WSTRN [facility] SYSTEMUSE [facility] BASIC METABOLIC PANEL (non-fast ing) GLUCOSE [MASS/VOLUM E] IN SERUM OR PLASMA 104 mg/dL 65 - 100 12/17 H Specimen Type: SERUM No comment entered. Ordering Provider: AMANDA CONRAD Report Released Date/Time: Dec 13, 2023 11:59 AM Reporting Lab: [facility]ITALRL WSTRN [facility] SYSTEMUSE[address] [address] Performing Lab: [facility]PITALRSHELBY BAPTIST MEDICAL CENTERTRN [facility] SYSTEMUSE[address] [address] [facility]PITALRFLOWERS HOSPITALN [facility] SYSTEMUSE [facility] BASIC METABOLIC PANEL (non-fast ing) SODIUM [MOLES/VOLU ME] IN SERUM OR PLASMA 137 mmol/L 135 - 145 12/17 Specimen Type: SERUM No comment entered. Ordering Provider: AMANDA CONRAD Report Released Date/Time: Dec 13, 2023 11:59 AM Reporting Lab: [facility]ITAL[facility] [place] [facility] [address] [facility] [address] Performing Lab: ID CN[facility]L WSTRN [facility] SYSTEMUSE[address] [address] [facility]PITALRL WSTRN [facility] SYSTEMUSE [facility] BASIC METABOLIC PANEL (non-fast ing) POTASSIUM [MOLES/VOLU ME] IN SERUM OR PLASMA 4.2 mmol/L 3.5 - 5.0 12/17 Specimen Type: SERUM No comment entered. Ordering Provider: AMANDA CONRAD Report Released Date/Time: Dec 13, 2023 11:59 AM Reporting Lab: [facility]ITALRL [facility]N [place] [address] [address] Performing Lab: [facility]ITALRL WSTRN [facility] SYSTEMUSE[address] [address] [facility]OSPITALRL [facility] BASIC METABOLIC PANEL (non-fast ing) CHLORIDE [MOLES/VOLU ME] IN SERUM OR PLASMA 103 mmol/L 100 - 110 12/17 Specimen Type: SERUM No comment entered. Ordering Provider: AMANDA CONRAD Report Released Date/Time: Dec 13, 2023 11:59 AM Reporting Lab: [facility] [address] [address] Performing Lab: [address] [address] [facility] BASIC METABOLIC PANEL (non-fast ing) CARBON DIOXIDE, TOTAL [MOLES/VOLU ME] IN SERUM OR PLASMA 25 meq/L 20 - 30 12/17 Specimen Type: SERUM No comment entered. Ordering Provider: AMANDA CONRAD Report Released Date/Time: Dec 13, 2023 11:59 AM Reporting Lab: [address] [address] Performing Lab: [address] [address] [facility] BASIC METABOLIC PANEL (non-fast ing) CREATININE [MASS/VOLUM E] IN SERUM OR PLASMA 0.92 mg/dL 0.50 - 1.40 12/17 Specimen Type: SERUM No comment entered. Ordering Provider: AMANDA CONRAD Report Released Date/Time: Dec 13, 2023 11:59 AM Reporting Lab: [address] [address] Performing Lab: [address] [address] [facility] BASIC METABOLIC PANEL (non-fast ing) GLOMERULAR FILTRATION RATE/1.73 SQ M.PREDICTED [VOLUME RATE/AREA] IN SERUM, PLASMA OR BLOOD BY CREATININE- BASED FORMULA (CKD-EPI 2020) 83 mL/min 60 12/17 Specimen Type: SERUM No comment entered. Ordering Provider: AMANDA CONRAD Report Released Date/Time: Dec 13, 2023 11:59 AM Reporting Lab: [facility] [place] [facility] [address] [facility] [address] Performing Lab: [facility] [place] [facility] [address] [facility] [address] [facility] [place] [facility] LIVER FUNCTION PROTEIN [MASS/VOLUM E] IN SERUM OR PLASMA 6.6 g/dL 6.0 - 8.3 06/18 Specimen Type: SERUM No comment entered. Ordering Provider: MORRO GRAHAM Report Released Date/Time: December 19, 2022 02:16 PM Reporting Lab: [facility] [place] [facility] [address] [facility] [address] Performing Lab: [facility] [place] [facility] [address] [facility] [address] [facility] [place] [facility] LIVER FUNCTION ALBUMIN [MASS/VOLUM E] IN SERUM OR PLASMA 3.9 g/dL 3.5 - 5.0 06/18 Specimen Type: SERUM No comment entered. Ordering Provider: MORRO GRAHAM Report Released Date/Time: December 19, 2022 02:16 PM Reporting Lab: [facility] [place] [facility] [address] [facility] [address] Performing Lab: [facility] [place] [facility] [address] [facility] [address] [facility] [place] [facility] LIVER FUNCTION ALKALINE PHOSPHATASE [ENZYMATIC ACTIVITY/VO LUME] IN SERUM OR PLASMA 64 U/L 40 - 150 06/18 Specimen Type: SERUM No comment entered. Ordering Provider: MORRO GRAHAM Report Released Date/Time: December 19, 2022 02:16 PM Reporting Lab: [facility] [place] [facility] [address] [facility] [address] Performing Lab: [facility] [place] [facility] [address] [facility] [address] [facility] [place] [facility] LIVER FUNCTION ASPARTATE AMINOTRANSF ERASE [ENZYMATIC ACTIVITY/VO LUME] IN SERUM OR PLASMA 21 U/L 5 - 34 06/18 Specimen Type: SERUM No comment entered. Ordering Provider: MORRO GRAHAMMuufri Report Released Date/Time: December 19, 2022 02:16 PM Reporting Lab: [facility] [place] [facility] [address] [facility] [address] Performing Lab: [facility] [place] [facility] [address] [facility] [address] [facility] [place] [facility] LIVER FUNCTION ALANINE AMINOTRANSF ERASE [ENZYMATIC ACTIVITY/VO LUME] IN SERUM OR PLASMA 16 U/L 06/18 Specimen Type: SERUM No comment entered. Ordering Provider: MORRO GRAHAM [employer] Report Released Date/Time: December 19, 2022 02:16 PM Reporting Lab: [facility] [place] [facility] [address] [facility] [address] Performing Lab: [facility] [place] [facility] [address] [facility] [address] [facility] [place] [facility] LIVER FUNCTION BILIRUBIN.T OTAL [MASS/VOLUM E] IN SERUM OR PLASMA 0.9 mg/dL 0.2 - 1.2 06/18 Specimen Type: SERUM No comment entered. Ordering Provider: MORRO GRAHAM Report Released Date/Time: December 19, 2022 02:16 PM Reporting Lab: [facility] [place] [facility] [address] [facility] [address] Performing Lab: [facility] [place] [facility] [address] [facility] [address] [facility] [place] LIPID PANEL FASTING CHOLESTEROL [MASS/VOLUM E] IN SERUM OR PLASMA 170 mg/dL 06/18 Specimen Type: SERUM No comment entered. Ordering Provider: MORRO GRAHAM [employer] Report Released Date/Time: December 19, 2022 02:16 PM Reporting Lab: [facility] [place] [facility] [address] [facility] [address] Performing Lab: [facility] [place] [facility] [address] [facility] [address] [facility] [place] [facility] LIPID PANEL FASTING TRIGLYCERID E [MASS/VOLUM E] IN SERUM OR PLASMA 74 mg/dL 0 - 150 06/18 Specimen Type: SERUM No comment entered. Ordering Provider: MORRO GRAHAM Report Released Date/Time: December 19, 2022 02:16 PM Reporting Lab: [facility] [place] [facility] [address] [facility] [address] Performing Lab: [facility] [place] [facility] [address] [facility] [address] [facility] [place] [facility] LIPID PANEL FASTING CHOLESTEROL IN LDL [MASS/VOLUM E] IN SERUM OR PLASMA BY CALCULATION 106 mg/dL 0 - 129 06/18 Specimen Type: SERUM No comment entered. Ordering Provider: MORRO GRAHAM Report Released Date/Time: December 19, 2022 02:16 PM Reporting Lab: [facility] [place] [facility] [address] [facility] [address] Performing Lab: [facility] [place] [facility] [address] [facility] [address] [facility] [place] [facility] LIPID PANEL FASTING CHOLESTEROL .TOTAL/CHOL ESTEROL IN HDL [MASS RATIO] IN SERUM OR PLASMA 3.5 06/18 Specimen Type: SERUM No comment entered. Ordering Provider: MORRO GRAHAM Report Released Date/Time: December 19, 2022 02:16 PM Reporting Lab: [facility] [place] [facility] [address] [facility] [address] Performing Lab: [facility] [place] [facility] [address] [facility] [address] [facility] [place] [facility] LIPID PANEL FASTING CHOLESTEROL IN HDL [MASS/VOLUM E] IN SERUM OR PLASMA 49 mg/dL 40 - 60 06/18 Specimen Type: SERUM No comment entered. Ordering Provider: MORRO GRAHAM Report Released Date/Time: December 19, 2022 02:16 PM Reporting Lab: [facility] [place] [facility] [address] [facility] [address] Performing Lab: [facility] [place] [facility] [address] [facility] [address] [facility] Vital Signs Combined list of inpatient and outpatient Vital Signs from Department of Defense and Veterans Affairs, ranging from 12 months to all on record, depending upon the facility. Vital Sign Value Date Comments Source SYSTOLIC BLOOD PRESSURE 157 06/24/20 24 14:16:06 [facility] DIASTOLIC BLOOD PRESSURE 63 024 14:16:06 [facility] PULSE OXIMETRY 96 06/24/2024 14:16:06 [facility] WEIGHT 183 06/24/2024 14:16:06 [facility] BMI 26 kg/m2 06/24/2024 14:16:06 [facility] PAIN 0 06/24/2024 14:16:06 [facility] TEMPERATURE 98.2 06/24/2024 14:16:06 [facility] PULSE 90 06/24/2024 14:16:06 [facility] RESPIRATION 16 06/24/2024 14:16:06 [facility] SYSTOLIC BLOOD PRESSURE 188 12/24/19 24 14:04:32 [facility] DIASTOLIC BLOOD PRESSURE 80 024 14:04:32 [facility] PULSE OXIMETRY 97 12/24/2023 14:04:32 [facility] WEIGHT 178 12/24/2023 14:04:32 [facility] BMI 25 kg/m2 12/24/2023 14:04:32 [facility] PAIN 0 12/24/2023 14:04:32 [facility] TEMPERATURE 98.1 12/24/2023 14:04:32 [facility] PULSE 98 12/24/2023 14:04:32 [facility] RESPIRATION 16 12/24/2023 14:04:32 [facility] Encounters Combined list of: 1) Encounters from Department of Veterans Affairs facilities going backup to the last 18 months, not all VA inpatient encounters are included; 2) Encounters from the Department of Defense facilities going backup to 280 months. Location Location Details Encounter Type Encounter Number Reason For Visit Attending Provider ADM Date DC Date Status Disposition Source [facility] Encounter [id number] 04/23 [facility] [id number] 04/26 [facility] Encounter [id number] 05/01 [facility] En[facility] [id number] 05/13 [facility] OFFICE O/P EST LOW 20-29 MIN [id number] Diagnos is: ICD-10- CM M79.642 Pain in left hand SANDRA GRAHAM MMED JAWED 05/13 [facility] En[facility] [id number] 05/24 [facility] En[facility] [id number] 05/28 [facility] Encounter [id number] 05/31 [facility] En[facility] [id number] 06/12 [facility] [id number] 06/17 [facility] Encounter [id number] 06/21 [facility] OFFICE O/P EST MOD 30-39 MIN [id number] Diagnos is: ICD-10- CM K21.9 Gastro- esophag eal reflux disease without esophag itis SANDRA GRAHAM MMED JAWED 06/25 [facility] En[facility] [id number] 06/28 [facility] Encounter [id number] 07/15 [facility] Encounter [id number] 08/02 [facility] Encounter [id number] 10/17 [facility] En[facility] [id number] 11/18 [facility] Encounter [id number] 11/18 [facility] OFFICE O/P EST HI 40 MIN [id number] Diagnos is: ICD-10- CM 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 FURCOLO,TI NA 12/23 [facility] En[facility] [id number] 01/16 [facility] Encounter [id number] 01/30 [facility] Out[facility] Encounter [id number] Diagnos is: ICD-10- CM Z02.89 Encount er for other adminis trative examina OMAYRA Le 02/23 [facility] [place] 1 [id number] Diagnos is: ICD-10- CM H25.813 Combine d forms of age-rel ated catarac t, bilater al ERIKA MCCULLOUGH 03/30 [facility] FIT SPECTACLES MULTIFOCAL [id number] Diagnos is: ICD-10- CM Z46.0 Encount er for fit/adj st of spectac les and contact lenses ERIKA MCCULLOUGH 03/31 [facility] Out[facility] Encounter [id number] 04/08 [facility] Encounter [id number] 04/08 [facility] RPR&REFITG SPECT XCP APHAKIA [id number] Diagnos is: ICD-10- CM Z46.0 Encount er for fit/adj st of spectac les and contact lenses TIP ESCOBAR KERRY 04/15 [facility] En[facility] [id number] 04/17 [facility] En[facility] [id number] 05/12 [facility] Encounter [id number] [facility] Out[facility] Encounter [id number] [facility] OFFICE O/P EST MOD 30 MIN [id number] Diagnos is: ICD-10- CM 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 FURCOLO,TI NA 06/24 [facility] En[facility] [id number] 07/27 [facility] HEARING AID EXAM BOTH EARS [id number] Diagnos is: ICD-10- CM H90.3 Sensori neural hearing loss, bilater al SENIOR,RENÉE OLE L 08/14 [facility] Out[facility] Encounter [id number] 09/03 [facility] CONFORMITY EVALUATION [id number] Diagnos is: ICD-10- CM Z46.1 Encount er for fitting and adjustm ent of hearing aid LALITA SWEENEYDonte YAZAN JIMÉNEZ 09/17 [facility] Social History Combined list of available smoking, tobacco, and other social history from Department of Defense and Veterans Affairs facilities. Social History Type Response Date Comment Source Tobacco smoking status FLIS VA-TOBACCO FORMER USER 06/24/2024 [facility] [place] [facility] History of tobacco use ID-TOBACCO QUIT 15 YRS OR MORE 06/24/2024 [facility] [place] History of tobacco use ID-TOBACCO NEVER USED 06/25/2023 [facility] [place] [facility] History of tobacco use ID-TOBACCO QUIT 15 YRS OR MORE 06/20/2022 [facility] [place] History of tobacco use ID-TOBACCO FORMER USER 05/22/2021 [facility] [place] History of tobacco use ID-TOBACCO FORMER USER 05/23/2020 [facility] [place] History of tobacco use LIFETIME NON-TOBACCO USER 03/10/2018 [facility] [place] History of tobacco use QUIT TOBACCO USE > 7 YEARS AGO 01/08/2017 pt quit in 1983 [facility] [place] History of tobacco use QUIT TOBACCO USE > 7 YEARS AGO 12/29/2015 pt he quit in 1983 [facility] [place] [facility] History of tobacco use HISTORY OF SMOKING 08/29/2005 Smoke free since 1983 [facility] [place] [facility] History of tobacco use HISTORY OF SMOKING 08/21/2004 Smoke free since 1983 [facility] [place] [facility] History of tobacco use HISTORY OF SMOKING 01/01/2003 Smoke free 20 years [facility] [place] History of tobacco use QUIT TOBACCO USE > 7 YEARS AGO 06/26/2002 quit 15 years ago. [facility] [place] [facility] History of tobacco use NON-TOBACCO USER 09/29/2001 [facility] [place] Plan of Care List of future care activities from Department of Veterans Affairs facilities. Additional future care activities may be listed in the Assessment and Plan section. Date/Time Care Activity Care Activity Detail Facili ty 10/22/2024 AMBULATORY - MEDICINE [facility] 11/09/2024 AMBULATORY - MEDICINE [facility]ATORY - [facility] 12/22/2024 AMBULATORY - MEDICINE [facility]ATORY - [facility] Advance Directives List of completed, amended, or rescinded Advance Directives on record at [facility] facilities. An actual copy of the Directive is not included. Date Advance Directive Provider Source 08/16/2013 ADVANCE DIRECTIVE CHERELLE WADDELL [facility]
--- OUTSIDE RECORDS SUMMARY | 2024-10-07 11:50 | XMS_ITS | Encounter Summary ---
Author Organization [employer] [facility] Address [address] [place] [address] Care Team Providers Care Anchorer Name Role Phone Unavailable Primary Care Provider Unavailabl e Encounter Details Date Type Department Care Team (Latest Contact Info) Description 02/21/2021 Abstract [facility] CONVERSIONS Dental, Provider, DDS Social History Tobacco Use Types Packs/Day Years Used Date Smoking Tobacco: Never Assessed Sex and Gender Information Value Date Recorded Sex Assigned at Male 06/18/2022 10:25 AM EDT Legal Sex Male 10:25 AM EDT Gender Identity Male 06/18/2022 10:25 AM EDT Sexual Orientation Straight 06/18/2022 10 :25 AM EDT documented as of this encounter Plan of Treatment Not on file documented as of this encounter Visit Diagnoses Not on filedocumented in this encounter
--- OUTSIDE RECORDS SUMMARY | 2024-10-07 11:50 | XMS_ITS | Encounter Summary ---
Author Name [facility] [place] Address [address] [place] [id number] Care Team Providers Care Communications Tower Climber Name Role Phone HALEY CONRAD Primary Care [...] Cobian's Name Patient's Relationship to Policy Cobian [facility] ([facility]) MEDICARE ADVANTAGE MCR ([facility]) Aug 19, 2017 [id number] LISSET ANDERSON PATIENT [facility] ([facility]) MEDICARE ADVANTAGE MCR ([facility]) Aug 19, 2014 [id number] LISSET ANDERSON PATIENT MEDICARE ([facility]) MEDICARE (M) PART A Aug 19, 2006 PART A [id number] LISSET ANDERSON PATIENT MEDICARE (WN) MEDICARE (M) PART B Aug 19, 2006 PART B [id number] LISSET ANDERSON PATIENT Selected Encounter This section includes the information on record at [place] for the Encounter. Date/Time Encounter Type Encounter Description Reason Provider Source Mar 30, 2024 02:30 PM COMPRE OPH EXAM EST PT 1/> OPTOMETRY ICD-10-CM H25.813 Combined forms of age-related cataract, bilateral ISAIAH MCCULLOUGH [facility] Encounter Template Text not used by [place] Assessments - Encounter Diagnoses This section includes the primary and secondary diagnoses documented for the Encounter. Date/Time Primary/Secondary Diagnosis Diagnosis Name Provider Source Mar 30, 2024 03:24 PM PRIMARY Combined forms of age-related cataract, bilateral ISAIAH MCCULLOUGH [place] [facility] [place] [facility] Mar 30, 2024 03:24 PM SECONDARY Nexdtve age-related mclr degn, bilateral, early dry stage ISAIAH MCCULLOUGH [place] [facility] [place] [facility] Mar 30, 2024 03:24 PM SECONDARY Unspecified disorder of refraction ISAIAH MCCULLOUGH [facility] [place] [facility] Plan of Treatment: Future Appointments (+ 6 months) and Future Tests (+/- 45 days) The Plan of Treatment section includes future care activities for the patient from all [place] [facility] This section includes future appointments and future orders which are active, pending or scheduled. Future Appointments This section includes appointments that were scheduled to occur 6 months from the date of the Encounter, up to a maximum of 20 appointments. The data comes from all [place] treatment facilities. Appointment Date/Time Appointment Type Appointme nt Facility Name Apr 15, 2024 01:20 PM AMBULATORY - MEDICINE [place] [facility] [place] [facility] Apr 23, 2024 01:00 PM AMBULATORY - MEDICINE [place] [facility] [place] [facility] Jun 24, 2024 02:30 PM AMBULATORY - MEDICINE [place] [facility] [place] [facility] Aug 14, 2024 01:30 PM AMBULATORY - [facility]AB MEDICIN E [place] [facility] [place] [facility] Sep 17, 2024 03:00 PM AMBULATORY - REHAB MEDICIN E [place] [facility] [place] [facility] Social History: Smoking Status (Most current) and Tobacco Use (All prior to encounter date) This section includes the most current, and the historical, smoking and tobacco- related health factors from the VA facility where the Encounter took place. Current Smoking Status This section includes the most current smoking, or tobacco-related health factor, from the [place] facility where the Encounter took place. Date/Time Current Smoking Status Comment Mariangel crum Jun 25, 2023 02:00 PM VA-TOBACCO NEVER USED [facility] Tobacco Use History This section includes a history of the smoking, or tobacco-related health factors, that were collected on or before the date of the Encounter. The data comes from the [place] facility where the Encounter took place. Date/Time Smoking Status/Tobac co Use Comment Facility Jun 20, 2022 03:00 PM VA-TOBACCO FORMER USER [place] [facility] [place] [facility] Jun 20, 2022 03:00 PM VA-TOBACCO QUIT 15 YRS OR MORE [place] [facility] [place] [facility] May 22, 2021 02:00 PM VA-TOBACCO FORMER USER [place] [facility] [place] [facility] May 22, 2021 02:00 PM VA-TOBACCO QUIT 15 YRS OR MORE [place] [facility] [place] [facility] May 23, 2020 03:00 PM VA-TOBACCO FORMER USER [place] [facility] [place] [facility] May 23, 2020 03:00 PM VA-TOBACCO QUIT 15 YRS OR MORE [place] [facility] [place] [facility] Dec 09, 2018 01:33 PM VA-TOBACCO FORMER USER [place] [facility] [place] [facility] Dec 09, 2018 01:33 PM VA-TOBACCO QUIT 15 YRS OR MORE [place] [facility] [place] [facility] Mar 10, 2018 12:28 PM LIFETIME NON-TOBACCO USER [place] [facility] [place] [facility] January 08, 2017 12:51 PM QUIT TOBACCO USE > 7 YEARS AGO pt quit in 1983 [place] [facility] [place] [facility] December 29, 2015 01:13 PM QUIT TOBACCO USE > 7 YEARS AGO pt he quit in 1983 [place] [facility] [place] [facility] Aug 29, 2005 02:28 PM HISTORY OF SMOKING Smoke free since 1983 [place] [facility] [place] [facility] Aug 21, 2004 01:16 PM HISTORY OF SMOKING Smoke free since 1983 [place] [facility] [place] [facility] January 01, 2003 01:29 PM HISTORY OF SMOKING Smoke free 20 years [facility] Jun 26, 2002 01:31 PM QUIT TOBACCO USE > 7 YEARS AGO quit 15 years ago. [facility] Sep 29, 2001 01:52 PM HISTORY OF SMOKING smoke free 15+ years Hx 35 years 2ppd [facility] Sep 29, 2001 01:52 PM NON-TOBACCO USER [facility] Advance Directives: All historical and current Section Date Range: From patient's date of to the date document was created. This section includes ALL of a patient's completed or amended [place] Advance and Rescinded Directives. The entries below indicate that a directive exists for the patient, but an actual copy is not included with this document. The data comes from all [place] facilities. Date Advance Directives Provider Source Aug 16, 2013 ADVANCE DIRECTIVE CHERELLE WADDELL [facility] Encounter Notes: All associated encounter notes This section contains the clinical notes associated to the Encounter. Date/Time Encounter Note(s) Provider Source Mar 30, 2024 02:26 PM OPTOMETRY NOTE: LOCAL TITLE: OPTOMETRY NOTE(T) STANDARD TITLE: OPTOMETRY NOTE DATE OF NOTE: MAR 30, 2024@14:26 ENTRY DATE: MAR 30, 2024@14:26:05 AUTHOR: ISAIAH MCCULLOUGH EXP COSIGNER: URGENCY: STATUS: COMPLETED I saw this patient in conjunction with the student and agree to the stated findings and plan after reviewing both history and repeating jeffries elements of physical exam. Patient presents for annual comprehensive exam well-known to me with history of combined cataracts mildly visually significant, macular scar OD stable from prior notes and refraction disorder. Today's exam exhibits RPE hyperplasia at the pole OU. Ordered PAL and patient would like to try PreserVision 2 vitamins. I ordered a 3-month supply today the patient will return in 6 months or sooner if any problems arise. Will monitor cataracts and macula at that time. /ramon/ ISAIAH MCCULLOUGH OD STAFF MANAGER FINANCE Signed: 03/30/2024 15:24 ISAIAH MCCULLOUGH [facility] Mar 30, 2024 02:21 PM OPTOMETRY NOTE: LOCAL TITLE: OPTOMETRY NOTE STANDARD TITLE: OPTOMETRY NOTE DATE OF NOTE: MAR 30, 2024@14:21 ENTRY DATE: MAR 30, 2024@14:21:34 AUTHOR: WESLEY DURAN EXP COSIGNER: ISAIAH MCCULLOUGH URGENCY: STATUS: COMPLETED Active problems - Computerized Problem List is the source for the followin. Carcinoma of prostate 2. Basal cell carcinoma of scalp 3. Essential tremor 4. Generalized osteoarthritis 5. Trigger thumb 6. Hypercholesterolemia 7. Throat irritation 8. IC - Intermittent claudication (SNOMED CT 09075054) 9. Osteoarthritis * 10. Osteoarthritis * 11. Urinary incontinence (SNOMED CT 253566275) 12. Male erectile disorder 13. Prostate Cancer 14. Alcohol dependence (SNOMED CT 96167716) 15. Elevated Prostate Specific Antigen (PSA) 16. HYPERLIPIDEMIA NEC/NOS 17. Essential hypertension (SNOMED CT 99448431) 18. Gastroesophageal reflux disease (SNOMED CT 799838422) 19. PURE HYPERCHOLESTEROLEM 20. ALLERGIC RHINITIS NOS Active Outpatient Medications (including Supplies): Active Outpatient Medications Status 1) AMLODIPINE BESYLATE 5MG TAB TAKE ONE TABLET BY MOUTH ACTIVE TWICE DAILY FOR HIGH BLOOD PRESSURE FOR BLOOD PRESSURE/HEART, DO NOT TAKE WITH GRAPEFRUIT JUICE 2) AMMONIUM LACTATE 12% LOTION APPLY MODERATE AMOUNT ACTIVE TOPICALLY ONCE DAILY NEEDED FOR DRY IRRITATED SKIN 3) BRIEF,PROTECTIVE SUPER ABS MED ATTENDS USE 1 BRIEF ACTIVE DIRECTED FIVE TIMES A DAY 4) FAMOTIDINE 20MG TAB TAKE ONE TABLET BY MOUTH ONCE ACTIVE DAILY FOR EXCESSIVE PRODUCTION OF STOMACH ACID IN PLACE OF OMEPRAZOLE 5) HYDROCORTISONE 2.5% RTL CRM W/APPLICATOR INSERT SMALL ACTIVE AMOUNT RECTAL AREA FOUR TIMES DAILY NEEDED FOR HEMORRHOIDS 6) INCONT LINER DEPEND GUARDS USE 1 PAD TOPICALLY FOUR ACTIVE TIMES DAILY NEEDED FOR INCONTINENCE 7) NIACIN (SLO-NIACIN) 500MG TAB,SA TAKE ONE TABLET BY ACTIVE MOUTH ONCE DAILY FOR HIGH CHOLESTEROL 8) VALSARTAN 80MG TAB TAKE ONE TABLET BY MOUTH ONCE ACTIVE DAILY FOR HIGH BLOOD PRESSURE Allergies: IBUPROFEN, SIMVASTATIN, LOVASTATIN, PRAVASTATIN, ROSUVASTATIN, LISINOPRIL COLESTIPOL, NIACIN All medications including those prescribed by outside VA's, community providers, and all OTC meds were reviewed and reconciled with patient to the best of their abilities. This 83 year old MALE is seen today for comprehensive eye exam. Chief Complaint: Patient reports current glasses work well for distance but not adequate for reading. OHx: 1. Macular scar OD 2. Combined cataracts OU 3. RE/P (-) Pain: (-) MEEKS: (-) Diplopia: (-) Flashes: (-) Floaters: (-) Amaurosis Fugax/Tia's: (-) Eye Injury: (-) Eye Surgery: (-) TBI FOHx: (-) Glaucoma/ARMD/Blindness (-) Smoker/Length of Time/PPD: Current Rx with last BCVA: +0.75 - 1.00X 90 +1.50 - 1.25X 80 + 2.50 for reading DVA ( )sc ( x )cc OD: 20/25 OS: 20/30-1 Pupils: PERRL (-)APD EOMs: SAFE OU, (-)Pain/Diplopia CVF (facial, peripheral): FTFC OU Subjective Refraction: OD: +0.25-1.11k151 20/20 OS: +1.00-1.52k698 20/20 Add: +2.75 All the above performed by student, reviewed by attending Anterior segment: Performed by student, repeated by attending Lids: dermatochalasis OU Conj: white and quiet OU Cornea: clear OU AC: 4x4 OU Iris: flat and clear OU Lens: 2-3+ NS OU with 1+ ACC inf-nasal OD, tr OS Tonometry: iCare Performed by student, reviewed by attending OD 17 mmHg OS 17 mmHg Time: 2:37am Fundus exam: Dilated: 2:42pm Dilating Drops: 1GTT 1 % Tropicamide OU & 1GTT 2.5% Phenylephrine OU (Pt. ed. on side effects, dilation warning given and verbal consent obtained) Patient advised not to drive if they feel they have any symptoms which could affect their ability to drive safely. Patient advised not to engage in any activities which could put themselves or others at risk if they feel they have any symptoms which could affect their ability to perform those activities safely. Performed by student, repeated by attending Vit: syneresis OU, PVD OU C/D: 0.35/0.35 OD, 0.4/0.4 OS Macula: scattered drusen with pigmentary changes OU PPole: clear OU A/V: 2/3 Vessels: normal caliber OU Periph: flat and intact (-)holes, tears, detachments 360 OU scattered pigment changes 360 OU Assessment/Plan: 1. 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 Patient ed on condition and findings. Patient advised to take Preservision BID PO, ordered today. Patient advised to make adjustments to diet with leafy greens, and to report any changes in vision MARIE. Monitor in 6 months. Consider Mac OCT. 2. 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 Not visually significant. Monitor 6 months. 3. Regular astigmatism with presbyopia OU. Ordered 1x PALs. Monitor. Return to Clinic 6 months or earlier PRN Salida Education: After discussion and answering all 's questions, Salida demonstrated and verbalized understanding of diagnosis and treatment. Yes [x] No [ ] Patient Education: Macular Degeneration: Patient was educated regarding macular degeneration including both wet and dry varieties as well as the natural history and prognosis of this condition. Education included the role of amsler grid testing , ocular nutraceutical therapy as well as diet and healthy lifestyle choices when applicable. Exclusion criteria includes extremely reduced acuity or cognitive decline for amsler grid testing and other coexisting systemic contraindication for supplements, diet and exercise. Medication Reconciliation: Outpatient: Has the patient been taking medications as documented in the EMLR? YES: The patient has been taking medications as documented in the EMLR. Essential Medication List for Review used to complete this medication reconciliation. INCLUDED IN THIS LIST: Alphabetical list of active outpatient prescriptions dispensed from this VA (local) and dispensed from another [place] or [facility] facility (remote) as well as inpatient orders (local, pending and active), local clinic medications, locally documented non-VA medications, and local prescriptions that have or been discontinued in the past 90 days. - All changes in medications, including all non-VA/Herbal/OTC medications were entered into CPRS. - If there were any medications the patient should no longer take, they were discontinued. - The patient/caregiver was instructed to update this list, discard old lists, and take this list to the next appointment, whether with a VA or non-VA provider. /ramon/ WESLEY DURAN OPTOMETRY STUDENT Signed: 03/30/2024 15:56 /ramon/ ISAIAH MCCULLOUGH OD STAFF MANAGER FINANCE Cosigned: 03/30/2024 16:06 WESLEY DURAN [facility]
--- OUTSIDE RECORDS SUMMARY | 2024-10-07 11:50 | XMS_ITS | Encounter Summary ---
Author Organization [employer] [facility] Address [address] [place] [address] Care Team Providers Care Human Resources Talent Manager Name Role Phone Unavailable Primary Care Provider Unavailabl e Encounter Details Date Type Department Care Team (Latest Contact Info) Description 09/10/2018 Abstract [facility] CONVERSIONS Dental, Provider, DDS Social History Tobacco [...]
--- OUTSIDE RECORDS SUMMARY | 2024-10-07 11:50 | XMS_ITS | Encounter Summary ---
Author Name [facility] [place] Address [address] [place] [address] Care Team Providers Care Secondary English Teacher Name Role Phone AMANDA CONRADA Primary Care Provider Unavailabl e Insurance Providers: [...] Cobian's Name Patient's Relationship to Policy Cobian [facility] [place]) MEDICARE ADVANTAGE MCR ([facility]) Aug 19, 2017 [id number] LISSET ANDERSON PATIENT [facility] [place] ([facility]) MEDICARE ADVANTAGE MCR ([facility]) Aug 19, 2014 [id number] LISSET ANDERSON PATIENT MEDICARE ([facility]) MEDICARE (M) PART A Aug 19, 2006 PART A [id number] LISSET ANDERSON PATIENT MEDICARE ([place]) MEDICARE (M) PART B Aug 19, 2006 PART B [id number] LISSET ANDERSON PATIENT Selected Encounter This section includes the information on record at [place] for the Encounter. Date/Time Encounter Type Encounter Description Reason Provider Source Apr 15, 2024 01:20 PM RPR&REFITG SPECT XCP APHAKIA OPTOMETRY ICD-10-CM Z46.0 Encounter for fit/adjst of spectacles and contact lenses GIO ESCOBAR IHE Encounter Template Text not used by VA Assessments - Encounter Diagnoses This section includes the primary and secondary diagnoses documented for the Encounter. Date/Time Primary/Secondary Diagnosis Diagnosis Name Provider Source Apr 15, 2024 01:57 PM PRIMARY Encounter for fit/adjst of spectacles and contact lenses GIO ESCOBAR [facility] Plan of Treatment: Future Appointments (+ 6 months) and Future Tests (+/- 45 days) The Plan of Treatment section includes future care activities for the patient from all [place] treatmentfacilities. This section includes future appointments and future orders which are active, pending or scheduled. Future Appointments This section includes appointments that were scheduled to occur 6 months from the date of the Encounter, up to a maximum of 20 appointments. The data comes from all [place] treatment facilities. Appointment Date/Time Appointment Type Appointme nt Facility Name Apr 23, 2024 01:00 PM AMBULATORY - [facility] Jun 24, 2024 02:30 PM AMBULAT[facility] [place] [facility] Aug 14, 2024 01:30 PM AMBULAT[facility] Sep 17, 2024 03:00 PM AMBULATORY - REHAB MEDICIN E [facility] Social History: Smoking Status (Most current) [...] Encounter took place. Date/Time Current Smoking Status Adia ramirez Jun 25, 2023 02:00 PM VA-TOBACCO NEVER USED [facility] Tobacco Use History This section includes a history of the smoking, or tobacco-related health factors, that were collected on or before the date of the Encounter. The data comes from the [facility] where the Encounter took place. Date/Time Smoking Status/Tobac co Use Comment Facility Jun 20, 2022 03:00 PM VA-TOBACCO FORMER USER [place] [facility] [facility] Jun 20, 2022 03:00 PM VA-TOBACCO QUIT 15 YRS OR MORE [place] [facility] [place] [facility] May 22, 2021 02:00 PM VA-TOBACCO FORMER USER [place] [facility] [facility] May 22, 2021 02:00 PM VA-TOBACCO QUIT 15 YRS OR MORE [place] [facility] [place] [facility] May 23, 2020 03:00 PM VA-TOBACCO FORMER USER [place] [facility] [place] [facility] May 23, 2020 03:00 PM VA-TOBACCO QUIT 15 YRS OR MORE [place] [facility] [place] [facility] Dec 09, 2018 01:33 PM VA-TOBACCO FORMER USER [place] [facility] [place] [facility] Dec 09, 2018 01:33 PM VA-TOBACCO QUIT 15 YRS OR MORE [place] [facility] [place] [facility] Mar 10, 2018 12:28 PM LIFETIME NON-TOBACCO USER [place] [facility] [place] [facility] January 08, 2017 12:51 PM QUIT TOBACCO USE > 7 YEARS AGO pt quit [place] 1983 [place] [facility] December 29, 2015 01:13 PM QUIT TOBACCO USE > 7 YEARS AGO pt he quit in 1983 [place] [facility] Aug 29, 2005 02:28 PM HISTORY OF SMOKING Smoke free since 1983 [place] [facility] [facility] Aug 21, 2004 01:16 PM HISTORY OF SMOKING Smoke free since 1983 [place] [facility] [facility] January 01, 2003 01:29 PM HISTORY OF SMOKING Smoke free 20 years [place] [facility] [place] [facility] Jun 26, 2002 01:31 PM QUIT TOBACCO USE > 7 YEARS AGO quit 15 years ago. [place] [facility] [place] [facility] Sep 29, 2001 01:52 PM HISTORY OF SMOKING smoke free 15+ years Hx 35 years 2ppd [place] [facility] [place] [facility] Sep 29, 2001 01:52 PM NON-TOBACCO USER [facility] Advance Directives: All historical and current Section Date Range: From patient's date of to the date document was created. This section includes ALL of a patient's completed or amended [place] Advance and Rescinded Directives. The entries below indicate that a directive exists for the patient, but an actual copy is not included with this document. The data comes from all [place] facilities. Date Advance Directives Provider Source Aug 16, 2013 ADVANCE DIRECTIVE CHERELLE WADDELL [facility] Encounter Notes: All associated encounter notes This section contains the clinical notes associated to the Encounter. Date/Time Encounter Note(s) Provider Source Apr 15, 2024 01:50 PM OPTOMETRY NOTE: LOCAL TITLE: OPTOMETRY NOTE STANDARD TITLE: OPTOMETRY NOTE DATE OF NOTE: APR 15, 2024@13:50 ENTRY DATE: APR 15, 2024@13:51:02 AUTHOR: GIO ESCOBAR EXP COSIGNER: URGENCY: STATUS: COMPLETED Patient came in today and states that his new glasses are a little blurry and he has to hold the glasses off his nose to see clearer. I marked lenses up to see if measurement was sitting in the right place which it was made to what was ordered, measured RX on lensometer and was made to order. Spoke with Maddi to see what she thought was the issue as there was not much change to RX.She stated that patient RX when refracted took away -0.50 diopter so he is holding his glasses out to accomadate and make up for the .50 diopter taken away. Informed patient I wanted to try and hold a couple lenses up to see if it changes anything, sure enough he was seeking the +0.50 that was taken away on his visit. Patient states he will continue wearing his old glasses and keep the new ones as a back and also keep trying to see if he can use them.Patient states that he can use them and he can see but it is just a slight blur. OPT HT Fit and adjusted 2 pair of eyeglasses per patients request. /ramon/ GIO PAYNE [facility] TECHINICIAN Signed: 04/15/2024 13:57 GIO ESCOBAR [facility]
--- OUTSIDE RECORDS SUMMARY | 2024-10-07 11:50 | XMS_ITS ---
Author Name [facility] [place] Organization [facility] [place] [place] Address [address] [place] [id number] Care Team Providers Care Cable Placer Name Role Phone HALEY CONRAD Primary Care [...] Cobian's Name Patient's Relationship to Policy [facility] ([facility]) MEDICARE ADVANTAGE MCR ([facility]) Aug 19, 2017 [id number] LISSET ANDERSON PATIENT [facility]) MEDICARE ADVANTAGE MCR ([facility]) Aug 19, 2014 [id number] LISSET ANDERSON PATIENT MEDICARE ([facility]) MEDICARE (M) PART A Aug 19, 2006 PART A [id number] LISSET ANDERSON PATIENT MEDICARE ([facility]) MEDICARE (M) PART B Aug 19, 2006 PART B [id number] JUSTIN,EDW SABIHA PATIENT Selected Encounter This section includes the information on record at [place] for the Encounter. Date/Time Encounter Type Encounter Description Reason Provider Source Jun 24, 2024 02:30 PM OFFICE O/P EST MOD 30 MIN PRIMARY CARE/MEDICINE ICD-10-CM C61 Malignant neoplasm of prostate FURCOLO,HALEY IHE Encounter Template Text not used by CO Assessments - Encounter Diagnoses This section includes the primary and secondary diagnoses documented for the Encounter. Date/Time Primary/Secondary Diagnosis Diagnosis Name Provider Source Jun 24, 2024 03:17 PM PRIMARY Malignant neoplasm of prostate FURCOLO,HALEY [facility] [place] Jun 24, 2024 03:17 PM SECONDARY Basal cell carcinoma of skin of scalp and neck FURCOLO,HALEY [facility] Jun 24, 2024 03:17 PM SECONDARY Encounter for immunization KALEB ZENG [facility] Jun 24, 2024 03:17 PM SECONDARY Essential (primary) hypertension FURCOLO,HALEY [facility] Jun 24, 2024 03:17 PM SECONDARY Essential tremor FURCOLO,HALEY [facility] [place] Jun 24, 2024 03:17 PM SECONDARY Gastro-esophageal reflux disease without esophagitis FURCOLO,HALEY [facility] Jun 24, 2024 03:17 PM SECONDARY Other specified peripheral vascular diseases FURCOLO,HALEY [facility] Jun 24, 2024 03:17 PM SECONDARY Primary generalized (osteo)arthritis FURCOLO,HALYE [facility] [place] Jun 24, 2024 03:17 PM SECONDARY Pure hypercholesterolem ia, unspecified FURCOLO,HALEY [facility] Jun 24, 2024 03:17 PM SECONDARY Trigger thumb, left thumb FURCOLO,HALEY [facility] Jun 24, 2024 03:17 PM SECONDARY Unspecified urinary incontinence FURCOLO,HALEY [facility] Plan of Treatment: Future Appointments (+ 6 months) and Future Tests (+/- 45 days) The Plan of Treatment section includes future care activities for the patient from all VA treatmentfacilities. This section includes future appointments and future orders which are active, pending or scheduled. Future Appointments This section includes appointments that were scheduled to occur 6 months from the date of the Encounter, up to a maximum of 20 appointments. The data comes from all [place] treatment facilities. Appointment Date/Time Appointment Type Appointme nt Facility Name Aug 14, 2024 01:30 PM AMBULATORY - REHAB MEDICIN E [facility] [place] [facility] Sep 17, 2024 03:00 PM AMBULATORY - REHAB MEDICIN E [facility] [place] [facility] Oct 22, 2024 03:00 PM AMBULATORY - MEDICINE [facility] [place] [facility] Nov 09, 2024 02:30 PM AMBULATORY - MEDICINE [facility] [place] [facility] December 22, 2024 02:00 PM [facility] Lab Results: +/- 30 days of the encounter This section includes the Chemistry and Hematology Lab Results on record with CO for the patient. Radiology Reports and Pathology Reports are provided separately, in subsequent sections. Lab Results This section contains the Chemistry/Hematology Results that were resulted 30 days before or 30 daysafter the date of the Encounter. Date/Time Source Result Type Result - Unit Interpretation Reference Range Comment Jun 16, 2024 10:58 AM [facility] LIPID PANEL FASTING Specimen Type: SERUM No comment entered. Ordering Provider: HALEY CONRAD Report Released Date/Time: December 25, 2023 07:54 AM Reporting [facility]: [facility] [address] [id number] Performing Lab: [facility] [address] [facility] [address] CHOLESTEROL 196 mg/dL TRIGLYCERIDE 64 mg/dL 0-150 LDL calculated 127 mg/dL 0-129 CHOL/HDL 3.5 HDL CHOLESTEROL 56 mg/dL 40-60 Jun 16, 2024 10:58 AM [facility] LIVER FUNCTION Specimen Type: SERUM No comment entered. Ordering Provider: HALEY CONRAD Report Released Date/Time: December 25, 2023 07:54 AM Reporting Lab: [facility] [address] [address] Performing Lab: [address] [address] PROTEIN,TOTAL 7.0 g/dL 6.0-8.3 ALBUMIN 4.1 g/dL 3.5-5.0 ALKALINE PHOSPHATASE 64 U/L 40-150 AST 25 U/L 5-34 ALT 17 U/L BILIRUBIN, TOTAL 0.8 mg/dL 0.2-1.2 Jun 16, 2024 10:58 AM [facility] BASIC METABOLIC PANEL (fasting) Specimen Type: SERUM No comment entered. Ordering Provider: HALEY CONRAD Report Released Date/Time: December 25, 2023 07:54 AM Reporting Lab: [address] [address] Performing Lab: [address] [address] UREA NITROGEN 16 mg/dL 7-25 GLUCOSE 85 mg/dL 65-100 SODIUM 139 mmol/L 135-145 POTASSIUM 4.1 mmol/L 3.5-5.0 CHLORIDE 105 mmol/L 100-110 CO2 25 meq/L 20-30 CREATININE, Serum 0.96 mg/dL 0.50-1.40 eGFR(CKD-EPI 2020) 79 mL/min >60 Vital Signs: All taken on the encounter date This section contains inpatient and outpatient Vital Signs collected on the date of the Encounter. Date/Time Temperature Pulse Blood Pressure Respiratory Rate SP02 Pain Height Weight Body Mass Index Source Jun 24, 2024 03:02 PM 137/78 [facility] Jun 24, 2024 02:16 PM 98.2 90 157/63 16 96 0 183 26 [facility] Immunizations: All administered on the encounter date This section contains immunizations associated to the Encounter. Immunization Series Date Issued Reaction Comments COVID-19 (MODERNA), MRNA, LN P-S, PF, 50 MCG/0.5 ML (AGES 12+ YEARS) Jun 24, 2024 INFLUENZA, HIGH-DOSE, TRIVALENT, PF Jun 24 Social History: Smoking Status (Most current) and Tobacco Use (All prior to encounter date) This section includes the most current, and the historical, smoking and tobacco- related health factors from the [place] facility where the Encounter took place. Current Smoking Status This section includes the most current smoking, or tobacco-related health factor, from the [place] facility where the Encounter took place. Date/Time Current Smoking Status Comment [facility] Jun 24, 2024 02:30 PM VA-TOBACCO FORMER USER [facility] [place] [facility] Tobacco Use History This section includes a history of the smoking, or tobacco-related health factors, that were collected on or before the date of the Encounter. The data comes from the [place] facility where the Encounter took place. Date/Time Smoking Status/Tobac co Use Comment Facility Jun 24, 2024 02:30 PM VA-TOBACCO QUIT 15 YRS OR MORE [facility] [place] Jun 25, 2023 02:00 PM VA-TOBACCO NEVER USED [facility] [place] Jun 20, 2022 03:00 PM VA-TOBACCO FORMER USER [facility] [place] [facility] Jun 20, 2022 03:00 PM VA-TOBACCO QUIT 15 YRS OR MORE [facility] [place] [facility] May 22, 2021 02:00 PM VA-TOBACCO FORMER USER [facility] [place] [facility] May 22, 2021 02:00 PM VA-TOBACCO QUIT 15 YRS OR MORE [facility] [place] [facility] May 23, 2020 03:00 PM VA-TOBACCO FORMER USER [facility] [place] [facility] May 23, 2020 03:00 PM VA-TOBACCO QUIT 15 YRS OR MORE [facility] [place] [facility] Dec 09, 2018 01:33 PM VA-TOBACCO FORMER USER [facility] [place] [facility] Dec 09, 2018 01:33 PM VA-TOBACCO QUIT 15 YRS OR MORE [facility] [place] [facility] Mar 10, 2018 12:28 PM LIFETIME NON-TOBACCO USER [facility] [place] [facility] January 08, 2017 12:51 PM QUIT TOBACCO USE > 7 YEARS AGO pt quit in 1983 [facility] [place] [facility] December 29, 2015 01:13 PM QUIT TOBACCO USE > 7 YEARS AGO pt he quit in 1983 [facility] Aug 29, 2005 02:28 PM HISTORY OF SMOKING Smoke free since 1983 [facility] Aug 21, 2004 01:16 PM HISTORY OF SMOKING Smoke free since 1983 [facility] January 01, 2003 01:29 PM HISTORY OF SMOKING Smoke free 20 years [facility] Jun 26, 2002 01:31 PM QUIT TOBACCO USE > 7 YEARS AGO quit 15 years ago. [facility] Sep 29, 2001 01:52 PM HISTORY OF SMOKING smoke free 15+ years Hx 35 years 2ppd [facility] Sep 29, 2001 01:52 PM NON-TOBACCO USER [facility] Advance Directives: All historical and current Section Date Range: From patient's date of to the date document was created. This section includes ALL of a patient's completed or amended CO Advance and Rescinded Directives. The entries below indicate that a directive exists for the patient, but an actual copy is not included with this document. The data comes from all [place] facilities. Date Advance Directives Provider Source Aug 16, 2013 ADVANCE DIRECTIVE CHERELLE WADDELL [facility] Encounter Notes: All associated encounter notes This section contains the clinical notes associated to the Encounter. Date/Time Encounter Note(s) Provider Source Jun 24, 2024 02:32 PM PHYSICIAN NOTE: LOCAL TITLE: MD NOTE STANDARD TITLE: PHYSICIAN NOTE DATE OF NOTE: JUN 24, 2024@14:32 ENTRY DATE: JUN 24, 2024@14:32:19 AUTHOR: HALEY CONRAD EXP COSIGNER: URGENCY: STATUS: COMPLETED JEANIE ANDERSON is a 83 year old WHITE MALE who is being seen today in primary care for routine follow up. CARE TEAM Community Primary Care Provider: Dr. Shashi White [place] Specialists: Community Specialists: urology- no longer sees [facility] surgechris Jerome HISTORY VA Percent: 70% Rated Disabilities: DEFORMITY OF THE PENIS (0%-SC) HYPERTENSIVE VASCULAR DISEASE (10%-SC) NEOPLASM, MALIGNANT, GENITOURINARY (60%-SC) TINNITUS (10%-SC) IMPAIRED HEARING (0%-SC) [employer], [employer] [facility], [phone], [facility] HISTORY OF PRESENT ILLNESS brings home BP cuff- BP readings are [facility]- just had ABIs and carotids RELEVANT PAST MEDICAL HISTORY Active problems - Computerized Problem List is the source for the followin. Carcinoma of prostate s/p prostatectomy 2. Basal cell carcinoma of scalp following [facility] 3. Essential tremor 4. Generalized osteoarthritis 5. Trigger thumb 6. Hypercholesterolemia 7. IC - Intermittent claudication (SNOMED CT 82054872) 8. Urinary incontinence (SNOMED CT 972618333) 9. Male erectile disorder 10. Alcohol dependence (SNOMED CT 95624187) trying to cut down 11. Essential hypertension (SNOMED CT 48010379) 12. 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 Alcohol Use: none currently, quit years ago Tobacco Use: quit 12/02/1983, 25 years x 1 ppd Exercise: walks daily- 1/5 mile from claudication, drives, does all his own ADLs ALLERGIES IBUPROFEN, SIMVASTATIN, LOVASTATIN, PRAVASTATIN, ROSUVASTATIN, LISINOPRIL COLESTIPOL, NIACIN MEDICATIONS Active and Recently Outpatient Medications (excluding Supplies): Active Outpatient Medications Status 1) AMLODIPINE BESYLATE 5MG TAB TAKE ONE TABLET BY MOUTH ACTIVE TWICE DAILY FOR HIGH BLOOD PRESSURE FOR BLOOD PRESSURE/HEART, DO NOT TAKE WITH GRAPEFRUIT JUICE 2) AMMONIUM LACTATE 12% LOTION APPLY MODERATE AMOUNT ACTIVE TOPICALLY ONCE DAILY NEEDED FOR DRY IRRITATED SKIN 3) ASPIRIN 81MG EC TAB TAKE ONE TABLET BY MOUTH ONCE ACTIVE DAILY FOR MYOCARDIAL REINFARCTION PREVENTION TO PREVENT STROKE/HEART ATTACK 4) FAMOTIDINE 20MG TAB TAKE ONE TABLET BY MOUTH ONCE ACTIVE DAILY FOR EXCESSIVE PRODUCTION OF STOMACH ACID IN PLACE OF OMEPRAZOLE 5) HYDROCORTISONE 2.5% RTL CRM W/APPLICATOR INSERT SMALL ACTIVE AMOUNT RECTAL AREA FOUR TIMES DAILY NEEDED FOR HEMORRHOIDS 6) MULTIVIT/OPHTH AREDS2/LUTE/ZEAX CAP/TAB TAKE 1 ACTIVE CAPSULE BY MOUTH TWICE DAILY FOR VITAMIN SUPPLEMENTATION IN THE MORNING AND EVENING, WITH FOOD 7) NIACIN (SLO-NIACIN) 500MG TAB,SA TAKE ONE TABLET BY ACTIVE MOUTH ONCE DAILY FOR HIGH CHOLESTEROL 8) VALSARTAN 80MG TAB TAKE ONE TABLET BY MOUTH ONCE ACTIVE DAILY FOR HIGH BLOOD PRESSURE REVIEW OF SYMPTOMS NEGATIVE FOR: CONSTITUTION: no [...] - - - - - - B/P: 157/63 (06/24/2024 14:16)- repeat improved pulse: 90 (06/24/2024 14:16) resp: 16 (06/24/2024 14:16) temp: 98.2 F [36.8 C] (06/24/2024 14:16) Ht: 71 in [180.3 cm] (06/25/2023 13:58) Wgt: 183 lb [83.01 kg] (06/24/2024 14:16) BMI: BMI: 25.6 Exam: - - - - - - - RRR S1 S2 LCTA bilat no LE edema RECENT LABS 04/2024: ABIs Indications PVD/Peripheral Vascular Disease. Lower Extremity Findings Right Left Location Pressure (mmHg) Ratio Pressure (mmHg) Ratio Brachial 150 150 TANK FILLER 77 0.51 112 0.75 DPA 67 0.45 84 0.56 Right ROHAN: 0.51 Left ROHAN: 0.75 Study Comments Comparison is made to previous study dated: 03/28/23 Right side: 0.49 ROHAN on prior exam. Left side: 0.88 ROHAN on prior exam. Physician Conclusions Summary: Right side: The Ankle / Brachial Index is 0.51. Left side: The Ankle / Brachial Index is 0.75. Collection DT Specimen Test Name Result Units Ref Range 06/16/2024 10:58 SERUM CREATININE, Serum 0.96 mg/dL 0.50 - 1.40 eGFR(CKD-EPI 2020 79 mL/min Ref: >=60 SODIUM 139 mmol/L 135 - 145 POTASSIUM 4.1 mmol/L 3.5 - 5.0 CHLORIDE 105 mmol/L 100 - 110 CO2 25 mEq/L 20 - 30 UREA NITROGEN 16 mg/dL 7 - 25 GLUCOSE 85 mg/dL 65 - 100 PROTEIN,TOTAL 7.0 g/dL 6.0 - 8.3 ALBUMIN 4.1 g/dL 3.5 - 5.0 ALK DEBBIE 64 U/L 40 - 150 AST 25 U/L 5 - 34 BILIRUBIN, TOTAL 0.8 mg/dL 0.2 - 1.2 CHOLESTEROL 196 mg/dL <7 - 199 TRIGLYCERIDE 64 mg/dL 0 - 150 LDL calculated 127 mg/dL 0 - 129 CHOL/HDL 3.5 ALT 17 U/L <6 - 55 HDL CHOLESTEROL 56 mg/dL 40 - 60 ASSESSMENT AND PLAN Active problems - Computerized Problem List is the source for the followin. Carcinoma of prostate s/p prostatectomy- chronic urinary incontinence- wears briefs and liners 2. Basal cell carcinoma of scalp following [facility] 3. Essential tremor 4. Generalized osteoarthritis 5. Trigger thumb 6. Hypercholesterolemia- cannot tolerate statins 7. IC - Intermittent claudication (SNOMED CT 67974986) Right side: The Ankle / Brachial Index is 0.51. Left side: The Ankle / Brachial Index is 0.75. 8. Urinary incontinence (SNOMED CT 633202780) 9. Male erectile disorder 10. Essential hypertension (SNOMED CT 24404390)- home BP readings 137/87 11. Gastroesophageal reflux disease (SNOMED CT 863456194) FOLLOW UP f/u in 6 mo with labs VISIT TYPE: a HIGH complexity visit where over 60 minutes was spent in direct patient care, review of records and documentation. /ramon/ HALEY CONRAD D.O. PHYSICIAN Signed: 06/24/2024 15:17 HALEY CONRAD [facility] [place] [facility] Jun 24, 2024 02:25 PM PREVENTIVE MEDICINE NURSING NOTE: LOCAL TITLE: CLINICAL REMINDERS/NURSING STANDARD TITLE: PREVENTIVE MEDICINE NURSING NOTE DATE OF NOTE: JUN 24, 2024@14:25 ENTRY DATE: JUN 24, 2024@14:25:56 AUTHOR: KALEB ZENG EXP COSIGNER: URGENCY: STATUS: COMPLETED Advance Directive Screen MH AD: Patient has an Advance Directive on file at this [facility]. No updates are needed at this time. The patient received education about Advance Directives and written notification of his/her rights. Suicide Screen: C-SSRS Screening [place] Suicide Severity Rating Scale (C-SSRS) screener 1. Over the past month, have you wished you were or wished you could go to sleep and not wake up? No 2. Over the past month, have you had any actual thoughts of killing yourself? No 3. Over the past month, have you been thinking about how you might do this? Response not required due to responses to other questions. 4. Over the past month, have you had these thoughts and had some intention of acting on them? Response not required due to responses to other questions. 5. Over the past month, have you started to work out or worked out the details of how to kill yourself? Response not required due to responses to other questions. 6. If yes, at any time in the past month did you intend to carry out this plan? Response not required due to responses to other questions. 7. In your lifetime, have you ever done anything, started to do anything, or prepared to do anything to end your life (for example, collected pills, obtained a gun, gave away valuables, went to the roof but didn't jump)? No 8. If YES, was this within the past 3 months? Response not required due to responses to other questions. Homelessness/Food Insecurity Screen: In the past 2 months, have you been living in stable housing that you own, rent, or stay in as part of a household? Yes - Living in stable housing. Are you worried or concerned that in the next 2 months you may NOT have stable housing that you own, rent, or stay in as part of a household? No - Not worried about housing near future The reports the following: Within the past 12 months, you worried whether your food would run out before you got money to buy more. Never true Within the past 12 months, the food you bought just didn't last and you didn't have money to get more. Never true Depression Screening: Perform PHQ-2 A PHQ-2 screen was performed. The score was 0 which is a negative screen for depression. Over the past two weeks, how often have you been bothered by the following problems? 1. Little interest or pleasure in doing things Not at all 2. Feeling down, depressed, or hopeless Not at all Falls & Incontinence Screen: Falls Screen: 4. No falls within the past year. Incontinence Screen YES - Incontinence is a problem for this patient. Is urinary incontinence NEW for this patient? NO - Incontinence is NOT a new problem. What is the current treatment? protective undergarments Tobacco Use Screening: The patient is a former tobacco user. The patient quit fifteen or more years ago. Influenza Immunization: Influenza, High-Dose, Trivalent, Preservative Free (Fluzone-Syringe) Administered: INFLUENZA, HIGH-DOSE, TRIVALENT, PF Date Administered: Jun 24, 2024 14:27 Series: Complete Stripper Apprentice: SANOFI PASTEUR Lot: [id number] Exp Date: Feb 15, 2025 ND: [id number] Admin Route/Site: INTRAMUSCULAR/LEFT DELTOID Dosage: 0.5mL Vaccine Information Statement(s): INFLUENZA(FLU) VACC(INACTIVATED OR RECOMBINANT)VIS Mar 24, 2021 (SWEDISH) Order By: Policy Administered By: Kaleb Zeng The Influenza Vaccine Information Statement (VIS) was reviewed with the patient/caregiver which lists the benefits and risks of the vaccine and the risks of not receiving the Influenza vaccine. The patient/caregiver denied any prior severe reaction to this vaccine or its components or a severe allergic reaction, such as anaphylaxis, to any vaccine or any injectable therapy. The patient/caregiver gave verbal consent to receive the vaccine. Alcohol Use Screen (AUDIT-C): Alcohol Screen: SCREEN FOR ALCOHOL (AUDIT-C) An alcohol screening test (AUDIT-C) was negative (score=0). 1. How often did you have a drink containing alcohol in the past year? Consider a drink to be a 12 ounce can or bottle of regular beer, 8 ounces of malt liquor, a 5 ounce glass of table wine, or a 1.5 ounce shot of liquor (like scotch, gin, or vodka). Never 2. How many drinks containing alcohol did you have on a typical day when you were drinking in the past year? Response not required due to responses to other questions. 3. How often did you have six or more drinks on one occasion in the past year? Response not required due to responses to other questions. COVID-19 Immunization: Moderna Monovalent (Spikevax) Administered: COVID-19 (MODERNA), MRNA, LNP-S, PF, 50 MCG/0.5 ML (AGES 12+ YEARS) Date Administered: Jun 24, 2024 14:28 Series: Complete Stripper Apprentice: MODERNA [employer] Lot: [id number] Exp Date: January 16, 2025 NDC: [id number] Admin Route/Site: INTRAMUSCULAR/RIGHT DELTOID Dosage: 0.5mL Vaccine Information Statement(s): COVID-19 MRNA VACCINE (12+ YRS) VACCINE VIS Jun 04, 2024 (SWEDISH) Order By: Policy Administered By: Kaleb Zeng Vaccine administered without complications. Sexual Orientation: The patient thinks of their sexual orientation as: Straight or Heterosexual /ramon/ KALEB ZENG LPN License Practical Nurse Signed: 06/24/2024 14:28 KALEB ZENG [facility]
--- OUTSIDE RECORDS SUMMARY | 2024-10-07 11:50 | XMS_ITS | Encounter Summary ---
Author Organization [employer] [facility] Address [address] [place] [address] Care Team Providers Care Wood Stainer Name Role Phone Unavailable Primary Care Provider Unavailabl e Encounter Details Date Type Department Care Team (Late st Contact Info) Description 12/13/2022 Telephone [facility] [address] [place], [place] [phone] Dustin Harris DDS [address] [place], [place] [phone] Social History Tobacco Use Types Packs/Day Years [...]
--- OUTSIDE RECORDS SUMMARY | 2024-10-07 11:50 | XMS_ITS | Encounter Summary ---
Author Organization [employer] Address [address] [place] [address] Care Team Providers Care Shop Mechanic Helper Name Role Phone Unavailable Primary Care Provider Unavailabl e Reason for Visit * Reason Onset Date Comments case back from lab 11/27/2022 Encounter Details Date Type Department Care Team ([facility] st Contact Info) Description 11/27/2022 Telephone [facility] [address] [place] [address] Dustin Harris, DDS [address] [place] [address] case back from lab Social History Tobacco Use Types Packs/Day Years [...] Orientation Straight 06/18/2022 10 :25 AM EDT COVID-19 Exposure Response Date Recorded In the last 10 days, have yo u been in contact with someone who was confirmed or suspected to have Coronavirus/COVID-19? No / Unsure 11/01/2022 12:52 PM EDT documented as of this encounter Miscellaneous Notes * Telephone Encounter - Christy Ferrell - 12/13/2022 11:49 AM EDT Farhat Moreno 1940 Patient wants to know if case is back from the lab. Please advise * Telephone Encounter - Silvina Chavez - 11/27/2022 2:28 PM EDT Patient is calling in to confirm if case is back from lab. documented in this encounter Plan of Treatment Not on file documented as of this encounter Visit Diagnoses Not on filedocumented in this encounter
--- OUTSIDE RECORDS SUMMARY | 2024-10-07 11:50 | XMS_ITS | Encounter Summary ---
Author Organization [employer] [facility] Address [address] [place] [address] Care Team Providers Care Recruiting Internship Name Role Phone Unavailable Primary Care Provider Unavailabl e Encounter Details Date Type Department Care Team (Latest Contact Info) Description 01/30/2019 Abstract [facility] CONVERSIONS Dental, Provider, DDS Social History Tobacco [...]
--- OUTSIDE RECORDS SUMMARY | 2024-10-07 11:50 | XMS_ITS | Patient Health Record ---
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 Name Role Phone Shashi Bennett Primary Care Provider Allergies Allergen (clinical drug ingredient) Drug/Non Drug [...] 0.2 - 1.3 BLD 5-10 Negative - Complete Blood Count Auto Di ff Reviewed date:06/02/2024 11:50:42 AM Interpretation: Performing Lab:[facility], [address] [place] [id number] Notes/Report: White Blood Count 6.0 4.8-10.8 X10*3/uL Red Blood Count 4.80 4.60-5.80 X10*6/uL Hemoglobin 14.6 14.0-18.0 g/dl Hematocrit 42.8 42.0-52.0 % Mean Corpuscular Volume 89.2 80.0-98.0 fL Mean Corpuscular Hemoglobin 30.4 27.0-33.0 pg Mean Corpuscular HGB Conc 34.1 31.0-36.0 g/dl Red Cell Distribution Width 12.3 11.0-16.0 % Platelet Count 291 160-400 X10*3/uL Mean Platelet Volume 8.7 9.4-12.4 fL Neutrophils Percent Auto 54.8 45-73 % Imm Gran Pct Auto 0.3 0.0-0.4 % Lymphocytes Percent Auto 29.8 20-40 % Monocytes Percent Auto 9.9 2-11 % Eosinophils Percent Auto 3.9 0-4 % Basophils Percent Auto 1.3 0-2 % NRBC Pct Auto 0.0 0.0-0.2 /100WBC Neutrophils Absolute Auto 3.3 2.0-8.3 x10*3/u L Imm Gran Abs Auto 0.02 0.00-0.03 X10*3/uL Lymphocytes Absolute Auto 1.8 1.2-4.9 X10*3/u L Monocytes Absolute Auto 0.6 0.1-1.2 X10*3/uL Eosinophils Absolute Auto 0.2 0.0-0.4 X10*3/u L Basophils Absolute Auto 0.1 0.0-0.2 X10*3/uL NRBC Abs Auto 0.000 0.0-0.012 X10*3/uL Comprehensive Sull[place]. Panel Fa st Reviewed date:06/02/2024 01:31:31 PM Interpretation: Performing Lab:[facility], [address] [place] [phone] Notes/Report: Sodium 139 135-145 mmol/L Potassium 3.9 3.3-5.1 mmol/L Chloride 107 96-108 mmol/L Carbon Dioxide 28 22-29 mmol/L Anion Gap 8 12-20 Blood Urea Nitrogen 13 9-16 mg/dL Creatinine 0.89 0.5-1.4 mg/dL Estimated Glomerular Filt Rate > 60 NOTE: For -[place] individuals, multiply the result by 1.210. Chronic Kidney Disease: Estimated GFR < 60 mL/min/1.73m2 Severe Kidney Disease: Estimated GFR < 15 mL/min/1.73m2 Glucose Fasting 98 60-99 mg/dL Calcium 8.8 8.4-10.2 mg/dL Bilirubin Total 0.9 0.0-1.0 mg/dL Aspartate Amino Transferase 22 5-37 U/L Alanine Aminotransferase 15 0-40 U/L Total Protein 6.6 6.5-8.0 g/dL Albumin Level 4.0 3.5-5.0 g/dL Alkaline Phosphatase 57 39-117 U/L Lipid Panel Reviewed date:06/02/2024 01:31:31 PM Interpretation: Performing Lab:[facility], [address] [place] [phone] Notes/Report: Triglycerides 68 <150 mg/dL Desirable Triglyceride: less than 150 mg/dL Borderline High Triglyceride 150-199 mg/dL High Triglyceride: 200-499 mg/dL Very High Triglyceride: greater than or equal to 5OO mg/dL Cholesterol 177 <200 mg/dL Desirable Cholesterol: less than 200 mg/dL Borderline High Cholesterol: 200-239 mg/dL High Cholesterol: greater than 239 mg/dL LDL Cholesterol Calculated 115 <100 mg/dL Desirable LDL: less than 100 mg/dL Near Optimal/Above Optimal LDL: 110-129 mg/dL Borderline High LDL: 130-159 mg/dL High LDL: 160-189 mg/dL Very High LDL: greater than or equal to 190 mg/dL HDL Cholesterol 49 >40 mg/dL Desirable HDL: greater than 40 mg/dL Note: This HDL assay may give artificially low results in patients with liver disease. Prostate Specific Antigen Reviewed date:06/02/2024 01:31:31 PM Interpretation: Performing Lab:[facility], [address] [place] [phone] Notes/Report: Prostate Specific Antigen < 0.10 <0.05-4.0 ng/mL PSA methodology: Planeta.runity i Chemiluminescent Microparticle Immunoassay (CMIA) Reason For Referral No Information Medications Medication SIG (Take, Route, Frequency, Duration) Notes Start Date End Date Status amLODIPine Besylate 2.5 MG 1 tablet Oral ly Twice a day Active Niacin 500 MG 1 tablet with food O rally Once a day Active Aspirin Adult Low Dose 81 MG 1 tablet Orally Once a day Active Clotrimazole 1 % APPLY AROUND/UNDER N AIL TWICE A DAY UNTIL CLEAR. KEEP NAIL DRY WHEN DOING WET WORK External Active Famotidine 20 MG 1 tablet at bedtime as needed Orally Once a day Active Immunizations Vaccine Route Administration Date Status Comme nts Influenza, quad IM Intramuscular 06/09/2021 Administered Influenza, quad IM Intramuscular 06/11/2022 Administered Social History Tobacco Use: Social History Observation [...] ast year? No Points 0 Interpretation Negative Problems Problem Type SNOMED Code ICD Code Onset Dates Problem Status W/U Status Risk Notes Problem 9193616 Former smoker (Z87.891) Active confirmed He is highly motivated not to smoke. We reviewed his plan to remain absent in times of stress or illness. Problem 111928717 Overweight (E66.3) Active confirmed He has gained 2 pounds and his body mass index is slightly over 25. I recommended stabilizing his weight at this level by consuming a healthy diet. Problem 332672627 Prostate cancer (C61) Active confirme d His PSA remains nondetectable. There is no sign of recurrent prostate cancer. Problem 191714995 Essential tremor (G25.0) Active confirmed He has a normal tremor. No pathologic tremor was noted. He was reassured. There has been no change in the tremor since his last visit. Problem 786134227 Erectile dysfunc tion, unspecified erectile dysfunction type (N52.9) Active confirmed This problem has been successfully resolved with medication. Problem 13673748 Essential hypert ension (I10) Active confirmed His blood pressure is currently stable. No changes in his medications was necessary. Problem 417765595 Peripheral vascu lar disease (I73.9) Active confirmed His claudication is stable and this issue has been addressed. No changes in his regimen are needed. He was advised to keep active. He was seen recently by vascular surgery to given an appointment in 1 year. Problem 893794246 Statin intoleran ce (Z78.9) Active confirmed We have C statin therapy and will begin niacin. Other medications may be needed. Problem 779396810 Gastroesophageal reflux disease without esophagitis (K21.9) Active confirmed He is go ing to take omeprazole once a day until his symptoms resolve. I also recommended liquid antacid. 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 He will continue on his current regimen. Problem 441070231 Pure hypercholesterolemia (E78.00) Active confirmed His lipids are currently stable. We discussed at length the elements of a lipid-lowering diet. 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 He is under the care of Dr. Bernal.This is a result of his radical prostatectomy in the past. Problem Seasonal allergi c rhinitis due to pollen (J30.1) Active confirmed I have recommended loratadine. If necessary he will receive fluticasone. Vital Signs Heart Rate 95 /min 06/10/2024 Temperature 99.0 degrees Fahrenheit 06/10/2024 Blood pressure diastolic 77 mm Hg 06/10/2024 Height 71 in 06/10/2024 Blood pressure systolic 132 mm Hg 06/10/2024 Weight 181 lbs 06/10/2024 BMI 25.24 kg/m2 06/10/2024 Encounters Encounter Location Date Provider Diagnosis Shashi Bennett III, MD [address] [place] [address] [place] [id number] 12/03/2023 Shashi Bennett Pure hypercholestero lemia E78.00 ; Peripheral vascular disease I73.9 ; Gastroesophageal reflux disease without esophagitis K21.9 ; Former smoker Z87.891 and Essential hypertension I10 Shashi Bennett III, MD [address] [place] [address] [place] [id number] 03/02/2024 Shashi Bennett Pure hypercholestero lemia E78.00 ; Acute viral syndrome B34.9 ; Peripheral vascular disease I73.9 ; Gastroesophageal reflux disease without esophagitis K21.9 ; Former smoker Z87.891 and Essential hypertension I10 Shashi Bennett III, MD [address] [place] [address] [place] [address] 03/18/2024 Shashi Price hypercholestero lemia E78.00 ; Essential hypertension I10 ; Prostate cancer C61 and Acute pharyngitis, unspecified etiology J02.9 Shashi Bennett III, MD [address] [place] [address] [address] [place] [id number] 05/13/2024 Shashi Bennett Pure hypercholestero lemia E78.00 ; Peripheral vascular disease I73.9 ; Gastroesophageal reflux disease without esophagitis K21.9 ; Former smoker Z87.891 and Essential hypertension I10 Shashi Bennett III, MD [address] [place] [address] [address] [place] [phone] 06/10/2024 Shashi Bennett Pure hypercholestero lemia E78.00 ; Prostate cancer C61 ; Overweight E66.3 ; Erectile dysfunction, unspecified erectile dysfunction type N52.9 ; Peripheral vascular disease I73.9 ; Gastroesophageal reflux disease without esophagitis K21.9 ; Former smoker Z87.891 ; Essential hypertension I10 ; Stress incontinence of urine N39.3 and Seasonal allergic rhinitis due to pollen J30.1 Shashi Bennett III, MD [address] [place] [address] [address] [place] [phone] 03/04/2024 Shashi Bennett Assessments Encounter Date Diagnosis (ICD Code) Assessment Notes T reatment Notes Treatment Clinical Notes 12/03/2023 Peripheral vascular disease (ICD-10 - I73.9) His claudication is stable and this issue has been addressed. No changes in his regimen are needed. He was advised to keep active. He was seen recently by vascular surgery to given an appointment in 1 year. 12/03/2023 Pure hypercholestero lemia (ICD-10 - E78.00) Comprehensive blood work has been ordered to be done in the near future. No change in his medications was made today. 03/02/2024 Pure hypercholestero lemia (ICD-10 - E78.00) Comprehensive blood work has been ordered to be done in the near future. No change in his medications was made today. 03/02/2024 Acute viral syndrome (ICD-10 - B34.9) He feels too ill to leave the house to go get tested for influenza. He thinks he may feel a little bit better today than he did recently. Call me at once if he worsens and every 48 hours scintigraphy recovers. Because of the possibility of Streptococcus he will take an antibiotic. 03/18/2024 Essential hypertensi on (ICD-10 - I10) He has a follow-up visit arranged to come to the office to check his blood pressure. 03/18/2024 Pure hypercholestero lemia (ICD-10 - E78.00) Comprehensive blood work has been ordered to be done in the near future. No change in his medications was made today. 05/13/2024 Peripheral vascular disease (ICD-10 - I73.9) His claudication is stable and this issue has been addressed. No changes in his regimen are needed. He was advised to keep active. He was seen recently by vascular surgery to given an appointment in 1 year. 05/13/2024 Pure hypercholestero lemia (ICD-10 - E78.00) His lipids are currently stable. We discussed at length the elements of a lipid-lowering diet. 06/10/2024 Prostate cancer (ICD -10 - C61) His PSA remains nondetectable. There is no sign of recurrent prostate cancer. 06/10/2024 Pure hypercholestero lemia (ICD-10 - E78.00) His lipids are currently stable. We discussed at length the elements of a lipid-lowering diet. 12/03/2023 Gastroesophageal ref lux disease without esophagitis (ICD-10 - K21.9) He is going to take omeprazole once a day until his symptoms resolve. I also recommended liquid antacid. 03/02/2024 Peripheral vascular disease (ICD-10 - I73.9) His claudication is stable and this issue has been addressed. No changes in his regimen are needed. He was advised to keep active. He was seen recently by vascular surgery to given an appointment in 1 year. 03/18/2024 Prostate cancer (ICD -10 - C61) Blood work with a PSA will be done under future. 05/13/2024 Gastroesophageal ref lux disease without esophagitis (ICD-10 - K21.9) He is going to take omeprazole once a day until his symptoms resolve. I also recommended liquid antacid. 06/10/2024 Overweight (ICD-10 - E66.3) He has gained 2 pounds and his body mass index is slightly over 25. I recommended stabilizing his weight at this level by consuming a healthy diet. 12/03/2023 Former smoker (ICD-1 0 - Z87.891) He is highly motivated not to smoke. We reviewed his plan to remain absent in times of stress or illness. 03/02/2024 Gastroesophageal ref lux disease without esophagitis (ICD-10 - K21.9) He is going to take omeprazole once a day until his symptoms resolve. I also recommended liquid antacid. 03/18/2024 Acute pharyngitis, unspecified etiology (ICD-10 - J02.9) This has resolved and he has completed the antibiotic. He is now able to swallow without impairment. 05/13/2024 Former smoker (ICD-1 0 - Z87.891) He is highly motivated not to smoke. We reviewed his plan to remain absent in times of stress or illness. 06/10/2024 Erectile dysfunction , unspecified erectile dysfunction type (ICD-10 - N52.9) This problem has been successfully resolved with medication. 12/03/2023 Essential hypertensi on (ICD-10 - I10) His blood pressure has improved to 140/70. We reviewed the necessity for sodium restriction weight loss and regular physical activity. No change was made in his medications. 03/02/2024 Former smoker (ICD-1 0 - Z87.891) He is highly motivated not to smoke. We reviewed his plan to remain absent in times of stress or illness. 05/13/2024 Essential hypertensi on (ICD-10 - I10) He has a follow-up visit arranged to come to the office to check his blood pressure. 06/10/2024 Peripheral vascular disease (ICD-10 - I73.9) His claudication is stable and this issue has been addressed. No changes in his regimen are needed. He was advised to keep active. He was seen recently by vascular surgery to given an appointment in 1 year. 03/02/2024 Essential hypertensi on (ICD-10 - I10) His blood pressure is unavailable. We reviewed the necessity for sodium restriction weight loss and regular physical activity. No change was made in his medications. 06/10/2024 Gastroesophageal ref lux disease without esophagitis [...] he will receive fluticasone. Plan Of Treatment Pending Test Test Name Order Date PROFILE, FASTING (COMPREHENSIVE METABOLI C) 03/10/2019 PROFILE, FASTING (COMPREHENSIVE METABOLI C) 03/18/2024 PROFILE, FASTING (COMPREHENSIVE METABOLI C) 03/14/2021 PROFILE, FASTING (COMPREHENSIVE METABOLI C) 09/02/2018 PROFILE, FASTING (COMPREHENSIVE METABOLI C) 09/03/2017 PROFILE, FASTING (COMPREHENSIVE METABOLI C) 05/04/2020 PROFILE, FASTING (COMPREHENSIVE METABOLI C) 01/28/2023 PROFILE, FASTING (COMPREHENSIVE METABOLI C) 04/22/2018 PROFILE, FASTING (COMPREHENSIVE METABOLI C) 09/08/2019 PROFILE, FASTING (COMPREHENSIVE METABOLI C) 01/26/2022 PROFILE, FASTING (COMPREHENSIVE METABOLI C) 10/25/2021 PROFILE, FASTING (COMPREHENSIVE METABOLI C) 06/10/2024 PROFILE, FASTING (COMPREHENSIVE METABOLI C) 12/17/2017 PROFILE, RANDOM (COMPREHENSIVE METABOLIC ) 05/09/2021 PROFILE, RANDOM (COMPREHENSIVE METABOLIC ) 07/17/2021 LIPID PANEL 12/17/2017 LIPID PANEL 03/10/2019 LIPID PANEL 03/14/2021 LIPID PANEL 09/02/2018 LIPID PANEL 09/03/2017 LIPID PANEL 05/04/2020 LIPID PANEL 01/28/2023 LIPID PANEL 04/22/2018 LIPID PANEL 07/17/2021 LIPID PANEL 09/08/2019 LIPID PANEL 01/26/2022 FREE T4 (FT4) 05/09/2021 TSH (THYROID STIMULATING HORMONE) 2020 PSA, TOTAL 10/25/2021 PSA, TOTAL 06/10/2024 PSA, TOTAL 07/17/2021 PSA, TOTAL 09/08/2019 PSA, TOTAL 03/18/2024 PSA, TOTAL 03/10/2019 PSA, TOTAL 02/01/2023 PSA, TOTAL 05/09/2021 PSA, TOTAL 03/14/2021 PSA, TOTAL 09/02/2018 PSA, TOTAL 05/04/2020 PSA, TOTAL 04/22/2018 PSA, TOTAL SCREEN 01/26/2022 CBC w DIFF 05/04/2020 CBC w DIFF 04/22/2018 CBC w DIFF 10/25/2021 CBC w DIFF 07/17/2021 CBC w DIFF 09/08/2019 CBC w DIFF 01/26/2022 CBC w DIFF 12/17/2017 CBC w DIFF 03/18/2024 CBC w DIFF 03/10/2019 CBC w DIFF 05/09/2021 CBC w DIFF 09/03/2017 CBC w DIFF 03/14/2021 CBC w DIFF 09/02/2018 CBC w DIFF 01/28/2023 SED RATE (ESR) 05/09/2021 LYME DISEASE IgG/IgM WB 05/09/2021 XR SHOULDER LT 2 VIEWS 05/09/2021 XR SHOULDER RT 2 VIEWS 05/09/2021 Holter Monitor 10/06/2021 VITAMIN D 25-OH TOTAL 10/25/2021 VITAMIN D 25-OH TOTAL 07/17/2021 VITAMIN D 25-OH TOTAL 02/01/2023 CBC WITH AUTO DIFF 06/10/2024 Lipid Panel 06/10/2024 Lipid Panel 10/25/2021 Lipid Panel 03/18/2024 Next Appt Details Provider Name:Shashi Bennett, 10/12/2024 02:30:00 PM, [address] [place] [address] T[address] AGUILERA, [place], [phone], Provider Name:Shashi Bennett, 06/14/2025 02:30:00 PM, [address] [place] [address] TARA AGUILERA, [place], [phone], Insurance Providers Payer Name Payer Address Payer Phone Subscriber Number Group Number Insured Name Patient Relationship to Insured Coverage Start Date Coverage End Date [facility] [address] [place] [phone] [id number] Farhat Moreno Self - patient is the insured MEDICARE NGS [address] [place] [address] [id number] Farhat Moreno Self - patient is the insured Medical (General) History Medical History History ICD Code Other osteoarthritis involving multiple joints Seasonal allergic rhinitis due to pollen Stress incontinence of urine Prostate cancer Erectile dysfunction, unspecified erecti le dysfunction type Intermittent claudication Essential hypertension Former smoker, 20 py, quit 1983 Peripheral vascular disease Gastroesophageal reflux disease without esophagitis Pure hypercholesterolemia overweight Surgical History Surgery Date(Month/Year) right inguinal hernia repair late tonsils and agnoids removed radical prostatectomy for carcinoma the prostate [address] 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
--- OUTSIDE RECORDS SUMMARY | 2024-10-07 11:51 | XMS_ITS ---
Author Organization Shashi Bennett III, MD Address [address] [place] [address] [address] [place] [id number] Care Team Providers Care Complementary Health Therapists Name Role Phone Shashi Bennett Primary Care Provider [phone] Allergies Allergen (clinical drug ingredient) Drug/Non Drug Allergy documented on EMR Reaction Allergy Type Onset Date Status lisinopril Lisinopril Unknown Drug Allergy Activ e ibuprofen Ibuprofen Unknown Drug Allergy Active REASON FOR VISIT Hyperlipidemia, Peripheral vascular disease, GERD, Hypertension, Prostate cancer, Tremor Medications Medication SIG (Take, Route, Frequency, Duration) Notes Start Date End Date Status Zolpidem Tartrate 5 MG 1 tablet at bedtime as needed Orally Once a day for 4 days 05/13/2024 05/17/2024 Active Niacin 500 MG 1 tablet with food Orally Once a day Active hydroCHLOROthiazide 12.5 MG 1 capsule in the morning Orally Every other day [facility] by [facility] 05/20/2023 Active Omeprazole 20 MG 1 capsule Orally as needed Active amLODIPine Besylate 2.5 MG 1 tablet Orally Twice a day Active Aspirin Adult Low Dose 81 MG 1 tablet Orally Once a day Active Social History Tobacco [...] te smoker Vital Signs Height 71 in 05/13/2024 Weight 179 lbs 05/13/2024 BMI 24.96 kg/m2 05/13/2024 Encounters Encounter Location Date Provider Diagnosis Shashi Bennett III, MD [address] [place] [address] [place] [id number] 05/13/2024 Shashi Donald Pure hypercholestero lemia E78.00 ; Peripheral vascular disease I73.9 ; Gastroesophageal reflux disease without esophagitis K21.9 ; Former smoker Z87.891 and Essential hypertension I10 Assessments Encounter Date Diagnosis (ICD Code) Assessment Notes T reatment Notes Treatment Clinical Notes 05/13/2024 Pure hypercholestero lemia (ICD-10 - E78.00) His lipids are currently stable. We discussed at length the elements of a lipid-lowering diet. 05/13/2024 Peripheral vascular disease (ICD-10 - I73.9) His claudication is stable and this issue has been addressed. No changes in his regimen are needed. He was advised to keep active. He was seen recently by vascular surgery to given an appointment in 1 year. 05/13/2024 Gastroesophageal ref lux disease without esophagitis (ICD-10 - K21.9) He is going to take omeprazole once a day until his symptoms resolve. I also recommended liquid antacid. 05/13/2024 Former smoker (ICD-1 0 - Z87.891) He is highly motivated not to smoke. We reviewed his plan to remain absent in times of stress or illness. 05/13/2024 Essential hypertensi on (ICD-10 - I10) He has a follow-up visit arranged to come to the office to check his blood pressure. Plan Of Treatment Medication Medication Name Sig Start Date Stop Date Notes Zolpidem Tartrate 5 MG 1 tablet at bedtime as needed Orally Once a day for 4 days 05/13/2024 05/17/2024 Niacin 500 MG 1 tablet with food Orally Once a day hydroCHLOROthiazide 12.5 MG 1 capsule in the morning Orally Every other day 05/20/2023 Prescribed by [place] Omeprazole 20 MG 1 capsule Orally as needed amLODIPine Besylate 2.5 MG 1 tablet Oral ly Twice a day Aspirin Adult Low Dose 81 MG 1 tablet Or ally Once a day Next Appt Details Follow Up: 3 Months, Reason: Office visit Provider Name:Shashi Bennett, 10/12/2024 02:30:00 PM, [address] [place] [address] [address], [place], [id number], Provider Name:Shashi Bennett, 06/14/2025 02:30:00 PM, [address] [place] [address] DR, [address], [place], [phone], Progress Notes * Farhat ANDERSON ADOB: [birth year] (83 yo M)Acc No.[id number]:05/13/2024 Patient:?Farhat ANDERSON A Provider:?Shashi Bennett MD :1940???Age:83 Y???Sex:Male Victoriano e:05/13/2024 Address:[address] [place] [address], [address], [phone] Subjective: * Chief Complaints: * ???HyperlipidemiaPeripheral vascular diseaseGERDHypertensionProstate cancerTremor * HPI: ???:? This telehealth visit took place over 22 minutes with the patient at home and me in my office.? He gave consent for billing.? This visit was for medical management of multiple issues.? Since his last visit he has been well.? He has been compliant with all of his medications.? He has had no new allergies, invasive procedures or emergency room visits.? His prostate cancer is stable.? His vital signs will be checked on his next visit.? The tremor has not increased.? His esophageal reflux symptoms are well controlled.? He has not had any recent urinary incontinence.? He is able to conduct his activities of daily living without claudication. ?Telehealth?Location of provider rendering services:?{...} [address] [place] [address] ?Location of patient:?address listed in demographics for [...] breath?denies.?Gastrointestinal:?Constipation?occasional.?Decreased appetite?denies.?Diarrhea?denies.?Heartburn?denies.?Nausea?denies.?Rectal bleeding?denies.?Vomiting?denies.?Hematology:?bruising?denies.?petechiae?denies.?Swollen glands?none have been noted.?Genitourinary:?Frequent urination?twice a night.?Musculoskeletal:?Muscle aches?denies.?Painful joints?Both hands.?Sciatica?denies.?Weakness?denies.?Skin:?Itching?denies.?Rash?denies.?Skin lesion(s)?denies.?Neurologic:?Difficulty speaking?denies.?Dizziness?denies.?Headache?denies.?Low back pain?denies.?Psychiatric:?Depressed mood?denies.? * Medical History:? * Surgical History:?right ingu inal hernia repair late 80'stonsils and agnoids removed radical prostatectomy for carcinoma the prostate 2007colonoscopy Dr. Shashi Bird 2014basel carcinoma removed top of head 06/2017 * Hospitalization/Major Diagno stic Procedure:?Denies Past Hospitalization * Family History:?Father: dece ased 50 yrs, Myocardial infarction, [employer] hemorrhage.?Mother: 86 yrs, Hypertension, breast cancer.?1 brother(s) [...] Release 1 tablet Orally Once a day Omeprazole 20 MG Capsule Delayed Release 1 capsule Orally as needed amLODIPine Besylate 2.5 MG Tablet 1 tablet Orally Twice a day Niacin 500 MG Tablet 1 tablet with food Orally Once a day hydroCHLOROthiazide 12.5 MG Capsule 1 capsule in the morning Orally Every other day , Notes to Pharmacist: Prescribed by VAMedication List reviewed and reconciled with the patientTaking Aspirin Adult Low Dose 81 MG Tablet Delayed Release 1 tablet Orally Once a day Taking Omeprazole 20 MG Capsule Delayed Release 1 capsule Orally as needed Taking amLODIPine Besylate 2.5 MG Tablet 1 tablet Orally Twice a day Taking Niacin 500 MG Tablet 1 tablet with food Orally Once a day Taking hydroCHLOROthiazide 12.5 MG Capsule 1 capsule in the morning Orally Every other day , Notes to Pharmacist: Prescribed by VAMedication List reviewed and reconciled with the patient * Allergies:?IbuprofenLisinopr ilno[Allergies Verified] Objective: * Vitals:?Ht: 71, Wt:179, BMI: 24.96, Ht-cm: 180.34, Wt-k.19. Assessment: * Assessment: 1.?Peripheral vascular disea se - I73.9 (Primary)???Notes :His claudication is stable and this issue has been addressed. No changes in his regimen are needed. He was advised to keep active. He was seen recently by vascular surgery to given an appointment in 1 year.???2.?Pure hypercholesterolemia - E78.00???Notes :His lipids are currently stable.? We discussed at length the elements of a lipid-lowering diet.???3.?Gastroesophageal reflux disease without esophagitis - K21.9???Notes :He is going to take omeprazole once a day until his symptoms resolve. I also recommended liquid antacid.???4.?Former smoker - Z87.891???Notes :He is highly motivated not to smoke. We reviewed his plan to remain absent in times of stress or illness.???5.?Essential hypertension - I10???Notes :He has a follow-up visit arranged to come to the office to check his blood pressure.??? Plan: * Treatment: 2.?Others? Continue hydroCHLOROthiazide Capsule, 12.5 MG, 1 capsule in the morning, Orally, Every other day, Notes to Pharmacist: [facility].?? * Procedure Codes:?43486 PHONE E/M BY PHYS 21-30 MIN * Preventive Medicine:? ??Counseling:?Smoking/Tobacco Use?Patient counseled on the dangers of tobacco use and urged to quit.?05/13/2024 * Follow Up:?3 Months (Reason: Office visit) * Images: * Sign off status: Completed true * Provider:?Shashi Bennett MD Date:?04/20 Generated for Dorys watts/Laura/Smithaitting on:?10/07/2024 11:51 AM EST History and Physical Notes * HPI (History of Present Illness) Category Sub-Category Detail Notes Telehealth Location of [facility] rendering services:: {...} [address] [place] [id number] Location of patient:: address listed in demographics [...]
--- OUTSIDE RECORDS SUMMARY | 2024-10-07 11:51 | XMS_ITS ---
Author Name [facility] [facility] [place] [facility] [place] Address [address] [place] [address] Care Team Providers Care Substation Designer Name Role Phone HALEY CONRAD Primary Care [...] Cobian's Name Patient's Relationship to Policy Cobian [facility] ([facility]) MEDICARE ADVANTAGE MCR ([facility]) Aug 19, 2017 [id number] LISSET ANDERSON PATIENT [facility] ([facility]) MEDICARE ADVANTAGE MCR ([facility]) Aug 19, 2014 [id number] LISSET ANDERSON PATIENT MEDICARE ([facility]) [place]ICARE ([place]) PART A Aug 19, 2006 PART A [id number] LISSET ANDERSON PATIENT MEDICARE ([facility]) MEDICARE ([place]) PART B Aug 19, 2006 PART B [id number] JUSTIN,EDW SABIHA PATIENT Selected Encounter This section includes the information on record at [place] for the Encounter. Date/Time Encounter Type Encounter Description Reason Provider Source Aug 14, 2024 01:30 PM HEARING AID EXAM BOTH EARS AUDIOLOGY ICD-10-CM H90.3 Sensorineural hearing loss, bilateral NESSA CORREA E Encounter Template Text not used by [place] Assessments - Encounter Diagnoses This section includes the primary and secondary diagnoses documented for the Encounter. Date/Time Primary/Secondary Diagnosis Diagnosis Name Provider Source Aug 14, 2024 01:57 PM PRIMARY Sensorineural hearing loss, bilateral NESSA CORREA [facility] [place] Aug 14, 2024 01:57 PM SECONDARY Tinnitus, bilateral ,NESSA L [facility] [place] Plan of Treatment: Future Appointments (+ 6 months) and Future Tests (+/- 45 days) The Plan of Treatment section includes future care activities for the patient from all [place] [facility]. This section includes future appointments and future orders which are active, pending or scheduled. Future Appointments This section includes appointments that were scheduled to occur 6 months from the date of the Encounter, up to a maximum of 20 appointments. The data comes from all [place] treatment facilities. Appointment Date/Time Appointment Type Appointme nt Facility Name Sep 17, 2024 03:00 PM AMBULATORY - [facility] Oct 22, 2024 03:00 PM AM[facility]UL[facility] [place] Nov 09, 2024 02:30 PM [facility] December 22, 2024 02:00 PM [facility] Social History: Smoking Status (Most [...] 24, 2024 02:30 PM VA-TOBACCO FORMER USER [facility] Tobacco Use History This section includes a history of the smoking, or tobacco-related health factors, that were collected on or before the date of the Encounter. The data comes from the [place] facility where the Encounter took place. Date/Time Smoking Status/Tobac co Use Comment Facility Jun 24, 2024 02:30 PM VA-TOBACCO QUIT 15 YRS OR MORE [place] [facility] [place] [facility] Jun 25, 2023 02:00 PM VA-TOBACCO NEVER USED [place] [facility] [place] [facility] Jun 20, 2022 03:00 PM VA-TOBACCO FORMER USER [place] [facility] [place] [facility] Jun 20, 2022 03:00 PM VA-TOBACCO QUIT 15 YRS OR MORE [place] [facility] [place] [facility] May 22, 2021 02:00 PM VA-TOBACCO FORMER USER [place] [facility] [place] [facility] May 22, 2021 02:00 PM VA-TOBACCO QUIT 15 YRS OR MORE [place] [facility] [place] [facility] May 23, 2020 03:00 PM VA-TOBACCO FORMER USER [place] [facility] [place] [facility] May 23, 2020 03:00 PM VA-TOBACCO QUIT 15 YRS OR MORE [place] [facility] [place] [facility] Dec 09, 2018 01:33 PM VA-TOBACCO FORMER USER [place] [facility] [place] [facility] Dec 09, 2018 01:33 PM VA-TOBACCO QUIT 15 YRS OR MORE [place] [facility] [place] [facility] Mar 10, 2018 12:28 PM LIFETIME NON-TOBACCO USER [place] [facility] [place] [facility] January 08, 2017 12:51 PM QUIT TOBACCO USE > 7 YEARS AGO pt quit in 1983 [place] [facility] [place] [facility] December 29, 2015 01:13 PM QUIT TOBACCO USE > 7 YEARS AGO pt he quit in 1983 [place] [facility] [place] [facility] Aug 29, 2005 02:28 PM HISTORY OF SMOKING Smoke free since 1983 [place] [facility] [place] [facility] Aug 21, 2004 01:16 PM HISTORY OF SMOKING Smoke free since 1983 [place] [facility] [place] [facility] January 01, 2003 01:29 PM HISTORY OF SMOKING Smoke free 20 years [place] [facility] [place] [facility] Jun 26, 2002 01:31 PM QUIT TOBACCO USE > 7 YEARS AGO quit 15 years ago. [place] [facility] Sep 29, 2001 01:52 PM HISTORY OF SMOKING smoke free 15+ years Hx 35 years 2ppd [facility] Sep 29, 2001 01:52 PM NON-TOBACCO USER [facility] Advance Directives: All historical and current Section Date Range: From patient's date of to the date document was created. This section includes ALL of a patient's completed or amended [place] Advance and Rescinded Directives. The entries below indicate that a directive exists for the patient, but an actual copy is not included with this document. The data comes from all [place] facilities. Date Advance Directives Provider Source Aug 16, 2013 ADVANCE DIRECTIVE CHERELLE WADDELL [facility] Encounter Notes: All associated encounter notes This section contains the clinical notes associated to the Encounter. Date/Time Encounter Note(s) Provider Source Aug 14, 2024 08:42 AM AUDIOLOGY E & M NO TE: LOCAL TITLE: AUDIOLOGY CLINIC STANDARD TITLE: AUDIOLOGY E & M NOTE DATE OF NOTE: AUG 14, 2024@08:42 ENTRY DATE: AUG 14, 2024@08:42:55 AUTHOR: NESSA CORREA COSIGNER: URGENCY: STATUS: COMPLETED AUDIOLOGY CLINIC Has ADDENDA Dx CODE: H90.3-Sensorineural Hearing Loss, Bilateral APPOINTMENT TYPE: Hearing Aid Selection BACKGROUND/HISTORY: [place] was seen today for a hearing aid selection appointment, unaccompanied. His last hearing evaluation was on 02/24/24 for C&P purposes and he was deemed eligible for new hearing aids through the [place]. He denies current or past use of hearing aids. HEARING AID SELECTION: Different hearing aid options were discussed. MARISABEL style hearing aids are recommended and he was agreeable. He denied having a pacemaker and would prefer rechargeable devices. He uses an iPhone and may be interested in Bluetooth connectivity. OTICON INTENT 1 MINIRITE-Rs were selected and ordered in ROES with size 3 85 gain receivers and domes. EDUCATION/COUNSELING: The patient was counseled re: hearing aid options. He demonstrated satisfactory understanding of the education and plan, and was given the opportunity to ask questions throughout today's visit. PLAN: 1. RTC on 09/08/24 at 2:00PM in clinic D for 60 minute hearing aid fitting appointment. Patient Education Education provided on the following topics: Hearing aids Education provided to: P Response to Education: VU Ter[place] Patient P Family F Significant Other SO Verbalizes Understanding VU Returns Demonstration RD Performs Independently PI Lacks Comprehension LC Refused Education RE Not Applicable NA /JAYLIN Giang, CCC-A STAFF OPERATOR COATING FURNACE Signed: 08/14/2024 13:57 Receipt Acknowledged By: 08/14/2024 14:34 /ramon/ ANNA COLON LEAD TOBACCO ROLLER 08/20/2024 ADDENDUM STATUS: COMPLETED Hearing aids received and certified, upcoming appointment scheduled on 09/08/2024. /ramon/ MARTA VOGEL Audiology Health Econometrics Professor Signed: 08/20/2024 14:41 NESSA CORREA [place] [facility]
[2024-10-07 12:09] LABS: Basophils Absolute Auto 0.1 X10*3/uL (0.0-0.2); Basophils Percent Auto 1.5 % (0-2); Eosinophils Absolute Auto 0.1 X10*3/uL (0.0-0.4); Eosinophils Percent Auto 1.7 % (0-4); Hemoglobin 15.2 g/dl (14.0-18.0); Imm Gran Abs Auto 0.02 X10*3/uL (0.00-0.03); Imm Gran Pct Auto 0.3 % (0.0-0.4); Lymphocytes Percent Auto 30.8 % (20-40); Mean Corpuscular HGB Conc 34.5 g/dl (31.0-36.0); Mean Corpuscular Volume 86.8 fL (80.0-98.0); Monocytes Absolute Auto 0.7 X10*3/uL (0.1-1.2); Monocytes Percent Auto 10.8 % (2-11); Neutrophils Absolute Auto 3.6 x10*3/uL (2.0-8.3); Neutrophils Percent Auto 54.9 % (45-73); Platelet Count 297 X10*3/uL (160-400); Red Blood Count 5.07 X10*6/uL (4.60-5.80); Red Cell Distribution Width 12.7 % (11.0-16.0); White Blood Count 6.6 X10*3/uL (4.8-10.8)
[2024-10-07 12:33] LABS: Alanine Aminotransferase 21 U/L (0-40); Albumin Level 4.1 g/dL (3.5-5.0); Alkaline Phosphatase 69 U/L (39-117); Anion Gap 12 (12-20); Aspartate Amino Transferase 28 U/L (5-37); Bilirubin Total 0.9 mg/dL (0.0-1.0); Blood Urea Nitrogen 14 mg/dL (9-16); Calcium 8.7 mg/dL (8.4-10.2); Carbon Dioxide 25 mmol/L (22-29); Chloride 106 mmol/L (96-108); Cholesterol 164 mg/dL (<200); Estimated Glomerular Filt Rate > 60; Glucose Fasting 93 mg/dL (60-99); HDL Cholesterol 49 mg/dL (>40); LDL Cholesterol Calculated 102 mg/dL (<100); Potassium 3.9 mmol/L (3.3-5.1); Sodium 139 mmol/L (135-145); Total Protein 7.2 g/dL (6.5-8.0); Triglycerides 69 mg/dL (<150)
[2024-10-07 13:03] LABS: Prostate Specific Antigen < 0.10 ng/mL (<0.05-4.0)
== END 2024-10-07 11:01 | disposition home or self-care (01) ==
LOC: HO.LAB 11:00
PROVIDERS: PCP Internal Medicine Medical Oncology; Visit Provider Internal Medicine Medical Oncology
DX: E78.00 Pure hypercholesterolemia, unspecified (principal); E66.3 Overweight; N52.9 Male erectile dysfunction, unspecified; Z12.5 Encounter for screening for malignant neoplasm of prostate
CPT/HCPCS: 36415; 80053; 80061; 84153; 85025